=== PATIENT | female | born 1990 | race Caucasian/White ===

== ENCOUNTER → 2016-08-04 | Outpatient (CLI) | payer BC, OTHER ==
[~2016-08-04] MED LIST: ACET-1256 PO; ADAL20KI INJ; CHOL2000 PO; DICY10CA55 PO; ERGO1CAP41 PO; HYDR-5688 PO; NUVVR PV; ONDA4TAB4 PO; ONDA4TAB9 PO; SERT25TA PO; TRAM-10 PO; TRAZ50TA35 PO; ZNTT/150 PO
[2016-08-04 17:33] LABS: ALT/SGPT 24 U/L (12-78); BLOOD UREA NITROGEN 11 mg/dl (7-18); BUN/CREATININE RATIO 15.2 (10-20); CALCIUM 8.6 mg/dl (8.5-10.1); CARBON DIOXIDE 26 mmol/L (21-32); CHLORIDE 107 mmol/L (98-107); CREATININE 0.69 mg/dl (0.60-1.20); GLUCOSE 101 mg/dl (70-99); POTASSIUM 4.2 mmol/L (3.5-5.1); SODIUM 142 mmol/L (136-145)
[2016-08-04 17:44] LABS: ALB/GLOB RATIO 0.9 (0.9-2); ALKALINE PHOSPHATASE 62 U/L (45-117); AST/SGOT 15 U/L (15-37)
[2016-08-04 17:54] LABS: BASO % 0.4 %; BASO ABS # 0.04 K/uL (0-0.2); COMPLETE YES; EOS % 2.1 %; HEMATOCRIT 38.2 % (37-47); IG% 0.2 %; LYMPH % 37.7 %; LYMPH ABS # 3.45 K/uL (1.2-3.4); MEAN CELL VOLUME 87.8 fL (80-100); MEAN CORPUSCULAR HEMOGLOBIN 30.8 pg (25-34); MEAN CORPUSCULAR HGB CONC 35.1 g/dl (32-36); MEAN PLATELET VOLUME 10.4 fL (7.4-10.4); MONO % 6.8 %; NEUT % 52.8 %; PLATELET COUNT 287 K/uL (130-400); RED BLOOD COUNT 4.35 M/uL (4.2-5.4); WHITE BLOOD COUNT 9.15 K/uL (4.8-10.8)
== END | disposition home or self-care (01) ==
LOC: C.LABBC 15:20
PROVIDERS: ATTEND Internal Medicine
DX: K50.90 Crohn's disease, unspecified, without complications (principal); R53.83 Other fatigue; R63.5 Abnormal weight gain

== ENCOUNTER → 2016-08-04 | Outpatient (CLI) | payer BC, OTHER ==
--- NOTE | 2016-08-04 16:54 | EEG Procedure Note ---
EEG Procedure Note Date of Service Aug 04, 2016. Start / End Times Start Time: 2:30 PM End Time: 2:51 PM Referring Physician Glenn Andrews History This is a 25-year-old female who presents with staring spells. EEG for further evaluation of possible seizure etiology. Other than control, no other home medications reported. Home Medication List Scheduled Adalimumab (Humira), 40 MG INJ [id number] Cholecalciferol (Vitamin D3), 2,000 INTUNIT PO DAILY Scheduled PRN Ondansetron Tab (Zofran), 4 MG PO Q6H PRN for Nausea Tramadol (Ultram), 50 MG PO BID PRN for Pain Description This is a 21 electrode EEG with a single channel dedicated to limited EKG. The electrodes were placed in accordance with the International 10-20 system. At the start of the recording the patient was in an awake state. Background was well organized and composed of symmetric mixed alpha and beta frequencies. There was a symmetric well-formed moderate amplitude 10-11 Hz posterior dominant rhythm that was reactive to eye opening and closure. Hyperventilation with good effort produced no abnormalities. Intermittent photic stimulation at various frequencies produced no abnormalities. Sleep was indicated by vertex waves and symmetric sleep spindles. Interpretation This is a normal awake and asleep routine EEG. There was no electrographic seizures or epileptiform discharges. Clinical Correlation A normal EEG does not rule out epilepsy if there is a strong clinical suspicion.
== END | disposition home or self-care (01) ==
LOC: C.NEUR 14:05
PROVIDERS: ATTEND Internal Medicine
DX: R40.4 Transient alteration of awareness (principal)

== ENCOUNTER 2017-01-02 10:06 | Emergency (ER) | payer BC, OTHER ==
[~2017-01-02] VITALS: Ht 162.6 cm; Wt 72.8 kg
[~2017-01-02 10:06] MED LIST changes: -ACET-1256 PO; -DICY10CA55 PO; -ERGO1CAP41 PO; -HYDR-5688 PO; -NUVVR PV; -ONDA4TAB9 PO; -SERT25TA PO; -TRAZ50TA35 PO; -ZNTT/150 PO
[2017-01-02 10:08] VITALS: TEMP 36.7; Ht 162.6 cm; Wt 72.8 kg
[2017-01-02] MEDS ORDERED: MoRPHine SULFATE 4 MG/ML 1 ML CARP\\VIAL IV STA ×2 (10:38→11:52)
[2017-01-02] MEDS ORDERED: SODIUM CHLORIDE 0.9% 1000ML 1,000 ML IV STA (10:38)
[2017-01-02] MEDS ORDERED: ONDANSETRON INJ 2 MG/ML 2 ML VIAL IV STA (10:38)
[2017-01-02 10:58] LABS: URINE APPEARANCE CLEAR (CLEAR); URINE BILIRUBIN NEG (NEG); URINE COLOR YELLOW; URINE EPITHELIAL CELL AUTO >30 /lpf (0-5); URINE NITRITE NEG (NEG); URINE PH 7.5 (4.5-7.5); URINE SPECIFIC GRAVITY 1.006 (1.000-1.030); UROBILINOGEN NEG (NEG); ZZUR CULT IF INDIC CLEAN CATCH YES
[2017-01-02 11:01] LABS: MANUAL MICROSCOPIC REQUIRED? NO; REVIEW REQ? NO
[2017-01-02 11:12] LABS: BASO % 0.4 %; BASO ABS # 0.04 K/uL (0-0.2); COMPLETE YES; EOS % 1.6 %; HEMATOCRIT 41.9 % (37-47); IG% 0.3 %; LYMPH % 31.9 %; LYMPH ABS # 2.97 K/uL (1.2-3.4); MEAN CELL VOLUME 87.8 fL (80-100); MEAN CORPUSCULAR HEMOGLOBIN 29.8 pg (25-34); MEAN CORPUSCULAR HGB CONC 33.9 g/dl (32-36); MEAN PLATELET VOLUME 10.1 fL (7.4-10.4); NEUT % 61.8 %; PLATELET COUNT 215 K/uL (130-400); RED BLOOD COUNT 4.77 M/uL (4.2-5.4); WHITE BLOOD COUNT 9.31 K/uL (4.8-10.8)
--- NOTE | 2017-01-02 11:27 | EMERGENCY ROOM VISIT NOTE ---
History Report prepared by Trell: Sheri Busch Under the Supervision of: Dr. Zoya Marshall M.D. First contact with patient: 10:26 Chief Complaint: ABDOMINAL PAIN Stated Complaint: ABD. PAIN RT SIDE UNDER RIB CAGE, BP, NAUSEA, FEVE Nursing Triage Summary: pt c/o right abd pain for 1.5 weeks feels nauseated and pain radiates across abd . pt reports hx of chrohns. called pcp told to take nausea med did not help and has been having fevers intermittently History of Present Illness The patient is a 26 year old female who presents to the Emergency Room with complaints of worsening diffuse abdominal pain that started 1.5 weeks ago. The pain is mostly in her right upper quadrant but it occasionally radiates across her abdomen. The pain is worse after eating and after bowel movements. She is also experiencing intermittent fevers and nausea. Her highest recorded temperature was 100.4. The patient states that she is also experiencing bilateral back pain, right under her rib cage. She describes the back pain and abdominal pain as squeezing pains. The pain builds up "pressure" then releases and the patient's nausea subsides. She is also experiencing a headache and bilateral shoulder pain when she experiences the abdominal pain. She adds that she experienced one episode of diarrhea this morning followed by a formed stool. There was also a red tint to her stool this morning but there was no blood when she wiped. She also experienced "chalky" stool last week. The patient has a history of Crohn's disease and IBS. She states that her current symptoms do not feel like a Crohn's flare. The patient called her PCP today and they recommended coming into the ED. She adds that she called her PCP last week and they told her to double her dose of Bentyl. She states that she did that but it did not seem to help her symptoms.The patient is unsure of when her most recent abdominal CT scan was but she thinks it was within the last year. The patient has a colonoscopy scheduled for January 09, but she states that she cannot wait that long. The patient is on Humira and her most recent dose was 8 days ago. She states that her next dose will be this weekend. The patient denies any chance of . She has never had her gallbladder checked. Source of History: patient Onset: 1.5 weeks ago Position: abdomen (diffuse) Quality: other (squeezing) Timing: worsening Associated Symptoms: + fevers, + headache, + nausea, + back pain (bilateral) , + diarrhea Note: shoulder pain Review of Systems See HPI for pertinent positives & negatives. A total of 10 systems reviewed and were otherwise negative. Past Medical & Surgical Medical Problems: (1) CD (Crohn's disease) (2) IBS (irritable bowel syndrome) (3) TBI (traumatic brain injury) Surgical Problems: (1) History of tonsillectomy (2) [place] teeth extracted Family History Hypertension Social History Smoking Status: Never Smoker Alcohol Use: occasionally Marital Status: in relationship Housing Status: lives alone Occupation Status: employed Current/Historical Medications Scheduled Adalimumab (Humira), 40 MG INJ [id number] Ergocalciferol (Vitamin D 05062 Unit), 50,000 UNITS PO WK Etonogestrel/Ethinyl Estradiol (Nuvaring), 1 DOSE PV UD Scheduled PRN Dicyclomine Hcl (Bentyl), 1 DOSE PO UD PRN for GI Upset Ondansetron (Ondansetron HCl), 4 MG PO TID PRN for Nausea or Vomiting Tramadol (Ultram), 1 TABS PO Q6 PRN for Pain Trazodone Hcl (Trazodone), 50 MG PO HS PRN for Insomnia Allergies Coded Allergies: Hydromorphone (Verified Allergy, Unknown, rash, itching, tongue swelling, 01/02/17) Sulfa Antibiotics (Verified Allergy, Unknown, RASH, 01/02/17) Physical Exam Vital Signs Date Time Temp Pulse Resp B/P (MAP) Pulse Ox O2 Delivery O2 Flow Rate FiO2 01/02/17 13:03 73 18 134/76 99 Room Air 01/02/17 11:59 74 18 135/80 100 Room Air 01/02/17 10:33 138/75 01/02/17 10:08 36.7 81 18 145/98 100 Room Air Physical Exam Vital signs reviewed. General: Well-appearing female, in no significant distress. HEENT: No scleral icterus, PERRLA, neck supple. Atraumatic. Cardiovascular: Regular rate and rhythm, no extra sounds. Pulmonary: Clear to auscultation bilaterally, normal work of breathing. Abdomen: Soft, right upper quadrant tenderness, no rebound, no guarding, nondistended, positive bowel sounds. Musculoskeletal: Atraumatic, no peripheral edema. Neurologic: Patient awake alert and oriented x 3 Skin: Warm, dry, no rash Medical Decision & Procedures ER Provider Diagnostic Interpretation: US results as stated below per my review and radiologist interpretation: GALLBLADDER-ABD LIMITED FINDINGS: The imaged pancreas appears unremarkable with the distal body and tail obscured by bowel gas. Liver measures up to 15 cm and appears to be unremarkable. There is no shadowing cholelithiasis, normal wall thickening or pericholecystic fluid collection. There is minimal layering gallbladder sludge. Common bile duct is upper limits of normal at 6 mm. No obstructing stone or mass identified. There is mild pelvic caliectasis on the right without renal calculi. Right kidney measures up to 9.6 x 3.4 x 5.2 cm. IMPRESSION: 1. Minimal layering gallbladder sludge without sonographic evidence of cholelithiasis or acute cholecystitis. 2. Mild right-sided pelvicaliectasis may be physiologic or reflect developing obstructive uropathy. Correlate with urinalysis. 3. Common bile duct measures within the upper limits of normal at 6 mm without obstructing mass or stone identified. The above report was generated using voice recognition software. It may contain grammatical, syntax or spelling errors. Electronically signed by: Pavan Izaguirre M.D. 01/02/2017 11:35 AM Dictated Date/Time: 01/02/2017 11:32 AM Laboratory Results 01/02/17 11:00 Red Blood Count 4.77, Mean Corpuscular Volume 87.8, Mean Corpuscular Hemoglobin 29.8, Mean Corpuscular Hemoglobin Concent 33.9, Mean Platelet Volume 10.1, Neutrophils (%) (Auto) 61.8, Lymphocytes (%) (Auto) 31.9, Monocytes (%) (Auto) 4.0, Eosinophils (%) (Auto) 1.6, Basophils (%) (Auto) 0.4, Neutrophils # (Auto) 5.75, Lymphocytes # (Auto) 2.97, Monocytes # (Auto) 0.37, Eosinophils # (Auto) 0.15, Basophils # (Auto) 0.04 01/02/17 11:00 Test 01/02/17 10:35 01/02/17 11:00 Urine Color YELLOW Urine Appearance CLEAR (CLEAR) Urine pH 7.5 (4.5-7.5) Urine Specific [place] 1.006 (1.000-1.030) Urine Protein NEG (NEG) Urine Glucose (UA) NEG (NEG) Urine Ketones NEG (NEG) Urine Occult Blood NEG (NEG) Urine Nitrite NEG (NEG) Urine Bilirubin NEG (NEG) Urine Urobilinogen NEG (NEG) Urine Leukocyte Esterase MODERATE (NEG) Urine WBC (Auto) 5-10 /hpf (0-5) Urine RBC (Auto) 0-4 /hpf (0-4) Urine Hyaline Casts (Auto) 1-5 /lpf (0-5) Urine Epithelial Cells (Auto) >30 /lpf (0-5) Urine Bacteria (Auto) 1+ (NEG) Urine Test NEG (NEG) White Blood Count 9.31 K/uL (4.8-10.8) Red Blood Count 4.77 M/uL (4.2-5.4) Hemoglobin 14.2 g/dL (12.0-16.0) Hematocrit 41.9 % (37-47) Mean Corpuscular Volume 87.8 fL (80-100) Mean Corpuscular Hemoglobin 29.8 pg (25-34) Mean Corpuscular Hemoglobin Concent 33.9 g/dl (32-36) Platelet Count 215 K/uL (130-400) Mean Platelet Volume 10.1 fL (7.4-10.4) Neutrophils (%) (Auto) 61.8 % Lymphocytes (%) (Auto) 31.9 % Monocytes (%) (Auto) 4.0 % Eosinophils (%) (Auto) 1.6 % Basophils (%) (Auto) 0.4 % Neutrophils # (Auto) 5.75 K/uL (1.4-6.5) Lymphocytes # (Auto) 2.97 K/uL (1.2-3.4) Monocytes # (Auto) 0.37 K/uL (0.11-0.59) Eosinophils # (Auto) 0.15 K/uL (0-0.5) Basophils # (Auto) 0.04 K/uL (0-0.2) RDW Standard Deviation 40.9 fL (36.4-46.3) RDW Coefficient of Variation 12.7 % (11.5-14.5) Immature Granulocyte % (Auto) 0.3 % Immature Granulocyte # (Auto) 0.03 K/uL (0.00-0.02) Anion Gap 7.0 mmol/L (3-11) Est Creatinine Clear Calc Drug Dose 95.8 ml/min Estimated GFR () 106.6 Estimated GFR (Non- 91.9 BUN/Creatinine Ratio 10.3 (10-20) Calcium Level 9.3 mg/dl (8.5-10.1) Total Bilirubin 0.4 mg/dl (0.2-1) Direct Bilirubin < 0.1 mg/dl (0-0.2) Aspartate Amino Transf (AST/SGOT) 16 U/L (15-37) Alanine Aminotransferase (ALT/SGPT) 21 U/L (12-78) Alkaline Phosphatase 61 U/L (45-117) Total Protein 7.6 gm/dl (6.4-8.2) Albumin 3.6 gm/dl (3.4-5.0) Lipase 147 U/L (73-393) Laboratory results per my review. Medications Administered Medications (Trade) Dose Ordered Sig/Júnior Route Start Time Stop Time Status Last Admin Dose Admin Sodium Chloride 1,000 ml @ 999 mls/hr Q1H1M STAT IV 01/02/17 10:38 01/02/17 11:38 DC 01/02/17 10:49 999 MLS/HR Morphine Sulfate (MoRPHine SULFATE INJ) 4 mg NOW STAT IV 01/02/17 10:38 01/02/17 10:41 DC 01/02/17 10:50 4 MG Ondansetron HCl (Zofran Inj) 4 mg NOW STAT IV 01/02/17 10:38 01/02/17 10:41 DC 01/02/17 10:50 4 MG Morphine Sulfate (MoRPHine SULFATE INJ) 4 mg NOW STAT IV 01/02/17 11:52 01/02/17 11:54 DC 01/02/17 11:58 4 MG Acetaminophen/ Hydrocodone Bitart ([place] 7.5/325 Tab) 1 tab NOW STAT PO 01/02/17 12:53 01/02/17 12:54 DC 01/02/17 13:02 1 TAB ED Course 1033: Past medical records reviewed. The patient was evaluated in room B7. A complete history and physical examination was performed. 1038: Ordered Zofran Inj 4 mg IV, Morphine Sulfate 4 mg IV, Sodium Chloride 1000 ml @ 999 mls/hr IV. 1152: Ordered Morphine Sulfate 4 mg IV 1238: I reviewed the patient's case with Dr. Rpi TELLO. He is going to follow- up with the patient as an outpatient. He also said that the patient gets some anxiety with her ulcerative colitis and IBS. 1246: The patient's nurse informed me that the patient is beginning to experience pain again. 1253: Ordered Hydrocodone Bitart/Acetaminophen 1 tab PO 1315: Upon reevaluation, the patient appeared to have improvement of her symptoms. I discussed findings with her. She verbalized agreement of the treatment plan. She was discharged home. Medical Decision Differential diagnoses includes appendicitis, diverticulitis, PUD, biliary pathology, UTI, pancreatitis, obstruction, mesenteric ischemia, aortic pathology , infections, inflammatory bowel disease, renal colic, Crohn's flare. Medication Reconciliation: I attest that I have personally reviewed the patient' s current medication list. Blood Pressure Screening: Patient was found to have a slightly elevated blood pressure due to circumstances. I do not believe that the patient requires hypertension monitoring. This patient was evaluated and appeared to be in some discomfort. IV access was obtained and laboratory work was drawn. The patient was given IV morphine and Zofran for her discomfort. She was hydrated with normal saline solution. Ultrasound of right upper quadrant reveals sludge in the gallbladder with a 6 mm common bile duct. LFTs are normal. WBC count is normal. UA is normal. test is negative. Patient did require additional IV morphine and Zofran. She was discussed with Dr. Erwin, her hospital insurance clerk. He agrees that a CT scan of the abdomen and pelvis is not indicated at this time. He recommends outpatient follow-up. Contact with the GI office was made for the patient. She has a colonoscopy scheduled for 1 week from today. The patient was given a prescription for Ultram to be used as needed for pain. She was given a hydrocodone tablet prior to discharge. She was discharged care of her parents and will return to the ER for worsening of symptoms or any medical concerns. Consults Time Called: 1206 Consulting Physician: Dr. Rip TELLO Returned Call: [phone] I reviewed the patient's case with Dr. Rip TELLO. He is going to follow-up with the patient as an outpatient. He also said that the patient gets some anxiety with her ulcerative colitis and IBS. Impression Primary Impression: Gallbladder sludge Additional Impressions: IBS (irritable bowel syndrome) Crohn disease Scribe Attestation The scribe's documentation has been prepared under my direction and personally reviewed by me in its entirety. I confirm that the note above accurately reflects all work, treatment, procedures, and medical decision making performed by me. Departure Information Dispostion Home / Self-Care Prescriptions Tramadol (Ultram) 50 Mg Tab 1 TABS PO Q6 Y for Pain, #20 TAB Prov: Zoya Marshall M.D. 01/02/17 Referrals No Doctor, Assigned (PCP) Forms HOME CARE DOCUMENTATION FORM, IMPORTANT VISIT INFORMATION Patient Instructions My [facility] Additional Instructions Diagnosis: Gallbladder sludge, Crohns disease, Ulcerative colitis Maintain a bland diet Ultram 50 mg every 6 hours as needed for pain. Drink plenty of clear fluids. Call Dr Erwin's office today for follow up MARK. Return to the ED for worsening of symptoms or any medical concerns. Problem Qualifiers Additional Impressions: IBS (irritable bowel syndrome) Irritable bowel syndrome type: unspecified Qualified Codes: K58.9 - Irritable bowel syndrome without diarrhea Crohn disease Gastrointestinal tract location: unspecified location Digestive disease complication type: unspecified complication Qualified Codes: K50.919 - Crohn' s disease, unspecified, with unspecified complications
[2017-01-02 11:29] LABS: ALT/SGPT 21 U/L (12-78); BLOOD UREA NITROGEN 9 mg/dl (7-18); BUN/CREATININE RATIO 10.3 (10-20); CALCIUM 9.3 mg/dl (8.5-10.1); CARBON DIOXIDE 24 mmol/L (21-32); CHLORIDE 108 mmol/L (98-107); CREATININE 0.87 mg/dl (0.60-1.20); GLUCOSE 80 mg/dl (70-99); SODIUM 139 mmol/L (136-145)
[2017-01-02 11:32] LABS: ALKALINE PHOSPHATASE 61 U/L (45-117); AST/SGOT 16 U/L (15-37)
--- NOTE | 2017-01-02 11:37 | DIAGNOSTIC IMAGING REPORT ---
GALLBLADDER-ABD LIMITED HISTORY:26 yearsFemaleCrohns Dx, RUQ pain COMPARISON: CT abdomen and pelvis 07/26/2014 TECHNIQUE: Multiple real-time sonographic images of the abdominal right upper quadrant were obtained assessing grayscale appearance and color flow FINDINGS: The imaged pancreas appears unremarkable with the distal body and tail obscured by bowel gas. Liver measures up to 15 cm and appears to be unremarkable. There is no shadowing cholelithiasis, normal wall thickening or pericholecystic fluid collection. There is minimal layering gallbladder sludge. Common bile duct is upper limits of normal at 6 mm. No obstructing stone or mass identified. There is mild pelvic caliectasis on the right without renal calculi. Right kidney measures up to 9.6 x 3.4 x 5.2 cm. IMPRESSION: 1. Minimal layering gallbladder sludge without sonographic evidence of cholelithiasis or acute cholecystitis. 2. Mild right-sided pelvicaliectasis may be physiologic or reflect developing obstructive uropathy. Correlate with urinalysis. 3. Common bile duct measures within the upper limits of normal at 6 mm without obstructing mass or stone identified. The above report was generated using voice recognition software. It may contain grammatical, syntax or spelling errors. Electronically signed by: Pavan Izaguirre M.D. 01/02/2017 11:35 AM Dictated Date/Time: 01/02/2017 11:32 AM
[2017-01-02] MEDS ORDERED: ONDA4TAB9 PO (11:42)
[2017-01-02] MEDS ORDERED: NUVVR PV (11:42)
[2017-01-02] MEDS ORDERED: DICY10CA55 PO (11:44)
[2017-01-02] MEDS ORDERED: ERGO1CAP41 PO (11:45)
[2017-01-02] MEDS ORDERED: TRAZ50TA35 PO (11:55)
[2017-01-02] MEDS ORDERED: TRAM-10 PO (12:52)
[2017-01-02] MEDS ORDERED: HYDROCODONE/ACETAMINOPHEN 7.5/325MG TAB PO STA (12:53)
[2017-01-02 13:03] VITALS: BP 134/76; PULSE 73; O2SAT 99
[2017-01-16] MEDS ORDERED: ZNTT/150 PO (09:06)
[2017-01-24] MEDS ORDERED: ACET-1256 PO (12:13)
[2017-02-01] MEDS ORDERED: TRAM-10 PO (14:56)
[2017-02-01] MEDS ORDERED: SERT25TA PO (14:56)
[2017-02-07] MEDS ORDERED: HYDR-5688 PO (06:23)
== END 2017-01-02 13:44 | disposition home or self-care (01) ==
LOC: C.EDB 10:07
DX: K58.9 Irritable bowel syndrome, unspecified (principal); K50.919 Crohn's disease, unspecified, with unspecified complications; Z82.49 Family history of ischemic heart disease and other diseases of the circulatory system

== ENCOUNTER 2017-01-03 17:21 | Inpatient (IN) | payer BC ==
[~2017-01-03] VITALS: Ht 162.6 cm; Wt 73.0 kg
[~2017-01-03 17:21] MED LIST changes: -CHOL2000 PO; +DICY10CA55 PO; +ERGO1CAP41 PO; +NUVVR PV; -ONDA4TAB4 PO; +ONDA4TAB9 PO; +TRAZ50TA35 PO
[2017-01-03] MEDS ORDERED: ONDANSETRON INJ 2 MG/ML 2 ML VIAL IV STA (17:42)
[2017-01-03] MEDS ORDERED: PROMETHAZINE HCL INJ 25 MG/ML 1 ML VIAL IV STA (17:42)
[2017-01-03] MEDS ORDERED: SODIUM CHLORIDE 0.9% 1000ML 1,000 ML IV STA ×2 (17:42)
[2017-01-03] MEDS ORDERED: MoRPHine SULFATE 10 MG/ML CARP/VIAL IV PRN (17:45)
--- NOTE | 2017-01-03 18:04 | EMERGENCY ROOM VISIT NOTE ---
History Report prepared by Trell: Fabio Yepez Under the Supervision of: Dr. Pan Hoang M.D. First contact with patient: 17:33 Chief Complaint: NEURO SYMPTOMS Stated Complaint: RIGHT SIDE NUMBNESS, NEURO SYMPTOMS, VOMITTING History of Present Illness The patient is a 26 year old female who presents to the Emergency Room with complaints of constant right arm numbness beginning prior to arrival. The patient states that she was here yesterday. Her records show that she had a normal WBC, a benign chemistry profile, negative lipase, negative test , and no evidence for a UTI. She had an ultrasound of the gallbladder showing sludge. She was discharged on Ultrum for pain. The patient reports that nothing has gotten better, and her vomiting has increased today. She notes that around 1.5 hours ago she was calling her GI doctor to tell them that her nausea has gotten worse. The patient states that during the call, her arm and fingers became numb and heavy. She reports that her arms are still heavy. The patient notes that this morning she started to get a headache at the base of her neck that spread around her head. She states that she has had intermittent fevers and abdominal pain that radiates from the right lower quadrant that spreads to her back. The patient reports that on her way here, she had a sharp pain that felt like she needed to move her bowels, but she cannot. She denies having diarrhea and her last bowel movement was yesterday morning. The patient states that she has a HIDA scan scheduled in 6 days with her GI doctor. She reports that she has a history of Crohn's disease and is on Humira. Source of History: patient Onset: prior to arrival Position: arm (right) Quality: numbness Timing: constant Associated Symptoms: + fevers, + headache, + nausea, + abdominal pain, + back pain, No diarrhea Review of Systems See HPI for pertinent positives & negatives. A total of 10 systems reviewed and were otherwise negative. Past Medical & Surgical Medical Problems: (1) CD (Crohn's disease) (2) IBS (irritable bowel syndrome) (3) TBI (traumatic brain injury) Surgical Problems: (1) History of tonsillectomy (2) [place] teeth extracted Family History Hypertension Social History Smoking Status: Never Smoker Alcohol Use: occasionally Marital Status: in relationship Housing Status: lives alone Occupation Status: employed Current/Historical Medications Scheduled Adalimumab (Humira), 40 MG INJ [id number] Ergocalciferol (Vitamin D 21230 Unit), 50,000 UNITS PO WK Etonogestrel/Ethinyl Estradiol (Nuvaring), 1 DOSE PV UD Scheduled PRN Dicyclomine Hcl (Bentyl), 1 DOSE PO UD PRN for GI Upset Ondansetron (Ondansetron HCl), 4 MG PO TID PRN for Nausea or Vomiting Tramadol (Ultram), 1 TABS PO Q6 PRN for Pain Trazodone Hcl (Trazodone), 50 MG PO HS PRN for Insomnia Allergies Coded Allergies: Hydromorphone (Verified Allergy, Unknown, rash, itching, tongue swelling, 01/03/17) Sulfa Antibiotics (Verified Allergy, Unknown, RASH, 01/03/17) Physical Exam Vital Signs Date Time Temp Pulse Resp B/P (MAP) Pulse Ox O2 Delivery O2 Flow Rate FiO2 01/03/17 18:55 79 20 132/84 100 Room Air 01/03/17 17:27 37.1 138 22 147/91 100 Room Air Physical Exam GENERAL: Patient is in moderate distress, tearful, dry heaving HEENT: No acute trauma, normocephalic atraumatic, mucous membranes moist, no nasal congestion, no scleral icterus. NECK: No stridor, no adenopathy, no meningismus, trachea is midline. LUNGS: Clear to auscultation bilaterally, no wheeze, no rhonchi, breath sounds equal. HEART: Tachycardic rate and regular rhythm, no murmur. ABDOMEN: Soft, moderately diffuse tenderness, bowel sounds positive, no hernias , no peritonitis. EXTREMITIES: No cyanosis or edema, full range of motion of all the joints without pain or difficulty, no signs for acute trauma. NEUROLOGIC: Oriented x 3, no acute motor or sensory deficits, no focal weakness. No cerebellar dysfunction or pronator drift, no slurred speech or facial droop. SKIN: No rash, no jaundice, no diaphoresis. Medical Decision & Procedures ER Provider Diagnostic Interpretation: CT results as stated below per my review and radiologist interpretation: CT HEAD WITHOUT CONTRAST (CT) CLINICAL HISTORY: Severe headache and right-sided numbness COMPARISON STUDY: 03/18/2016 TECHNIQUE: Axial CT of the brain is performed from the vertex to the skull base. IV contrast was not administered for this examination. CT DOSE: FINDINGS: No intra or extra-axial mass lesions are visualized. There is no CT evidence of acute cortical infarction. There is no evidence of midline shift. There is no acute hemorrhage. No calvarial fractures are visualized. There is no evidence of pathologic ventricular dilatation. There is minimal sphenoid sinus mucosal thickening versus partial volume averaging artifact. IMPRESSION: No acute intracranial findings Electronically signed by: Narendra Peacock M.D. 01/03/2017 7:28 PM Dictated Date/Time: 01/03/2017 7:[address] SCAN OF THE ABDOMEN AND PELVIS WITHOUT CONTRAST CLINICAL HISTORY: Right-sided abdominal pain. History of Crohn's. COMPARISON STUDY: 07/26/2014 TECHNIQUE: CT scan of the abdomen and pelvis was performed from the lung bases to the proximal femurs. Images are reviewed in the axial, sagittal, and coronal planes. IV contrast was not administered for this examination. CT DOSE: 1248.02 mGy.cm FINDINGS: Lower chest: There are minimal dependent atelectatic changes Liver: The unenhanced liver is normal in size, contour, and attenuation. There is no intrahepatic biliary ductal dilatation. Gallbladder: Unremarkable. Spleen: Normal in size and attenuation. Pancreas: Unremarkable. Adrenal glands: Unremarkable. Kidneys: No renal, ureteral, or bladder calculi are visualized. Bowel: There are no transition zones indicate bowel obstruction. There is no acute diverticulitis. There is no acute appendicitis. There is a small amount of formed fecal material within the distal ileum. There is no pathologic distal ileal dilatation. There is scattered stool present throughout the colon. Peritoneum: There is no intraperitoneal free air or abdominal ascites. Vasculature: The abdominal aorta is normal in course and caliber. Adenopathy: Para-aortic lymph nodes remain the upper limits of normal in size. Pelvic viscera: The bladder, and pelvic viscera are unremarkable. Skeletal structures: No destructive osseous lesions are seen. IMPRESSION: 1. No acute intra-abdominal or pelvic findings 2. No evidence of bowel obstruction. No evidence of free air 3. No renal, ureteral, or bladder calculi identified 4. No evidence of acute appendicitis. No evidence of acute diverticulitis. Electronically signed by: Narendra Peacock M.D. 01/03/2017 7:33 PM Dictated Date/Time: 01/03/2017 7:28 PM Laboratory Results 01/03/17 18:30 Red Blood Count 4.31, Mean Corpuscular Volume 87.0, Mean Corpuscular Hemoglobin 30.9, Mean Corpuscular Hemoglobin Concent 35.5, Mean Platelet Volume 9.6, Neutrophils (%) (Auto) 64.7, Lymphocytes (%) (Auto) 27.6, Monocytes (%) (Auto) 6.1, Eosinophils (%) (Auto) 1.1, Basophils (%) (Auto) 0.3, Neutrophils # (Auto) 7.03, Lymphocytes # (Auto) 2.99, Monocytes # (Auto) 0.66, Eosinophils # (Auto) 0.12, Basophils # (Auto) 0.03 01/03/17 18:30 Test 01/03/17 18:30 01/03/17 19:34 White Blood Count 10.85 K/uL (4.8-10.8) Red Blood Count 4.31 M/uL (4.2-5.4) Hemoglobin 13.3 g/dL (12.0-16.0) Hematocrit 37.5 % (37-47) Mean Corpuscular Volume 87.0 fL (80-100) Mean Corpuscular Hemoglobin 30.9 pg (25-34) Mean Corpuscular Hemoglobin Concent 35.5 g/dl (32-36) Platelet Count 260 K/uL (130-400) Mean Platelet Volume 9.6 fL (7.4-10.4) Neutrophils (%) (Auto) 64.7 % Lymphocytes (%) (Auto) 27.6 % Monocytes (%) (Auto) 6.1 % Eosinophils (%) (Auto) 1.1 % Basophils (%) (Auto) 0.3 % Neutrophils # (Auto) 7.03 K/uL (1.4-6.5) Lymphocytes # (Auto) 2.99 K/uL (1.2-3.4) Monocytes # (Auto) 0.66 K/uL (0.11-0.59) Eosinophils # (Auto) 0.12 K/uL (0-0.5) Basophils # (Auto) 0.03 K/uL (0-0.2) RDW Standard Deviation 40.2 fL (36.4-46.3) RDW Coefficient of Variation 12.5 % (11.5-14.5) Immature Granulocyte % (Auto) 0.2 % Immature Granulocyte # (Auto) 0.02 K/uL (0.00-0.02) Anion Gap 6.0 mmol/L (3-11) Est Creatinine Clear Calc Drug Dose 85.2 ml/min Estimated GFR () 92.3 Estimated GFR (Non- 79.6 BUN/Creatinine Ratio 14.1 (10-20) Calcium Level 8.8 mg/dl (8.5-10.1) Magnesium Level 1.8 mg/dl (1.8-2.4) Total Bilirubin 0.4 mg/dl (0.2-1) Aspartate Amino Transf (AST/SGOT) 14 U/L (15-37) Alanine Aminotransferase (ALT/SGPT) 18 U/L (12-78) Alkaline Phosphatase 55 U/L (45-117) Total Protein 7.0 gm/dl (6.4-8.2) Albumin 3.3 gm/dl (3.4-5.0) Globulin 3.7 gm/dl (2.5-4.0) Albumin/Globulin Ratio 0.9 (0.9-2) Lipase 129 U/L (73-393) Human Chorionic Gonadotropin, Qual NEG (NEG) Laboratory results reviewed by me. Medications Administered Medications (Trade) Dose Ordered Sig/Júnior Route Start Time Stop Time Status Last Admin Dose Admin Ondansetron HCl (Zofran Inj) 4 mg NOW STAT IV 01/03/17 17:42 01/03/17 17:45 DC 01/03/17 18:45 4 MG Sodium Chloride 1,000 ml @ 200 mls/hr Q5H STAT IV 01/03/17 17:42 01/03/17 22:41 01/03/17 18:47 200 MLS/HR Sodium Chloride 1,000 ml @ 999 mls/hr Q1H1M STAT IV 01/03/17 17:42 01/03/17 18:42 DC 01/03/17 18:46 999 MLS/HR Morphine Sulfate (MoRPHine SULFATE INJ) 2 mg STK-MED ONCE .ROUTE 01/03/17 18:29 01/03/17 18:30 DC 01/03/17 18:46 2 MG Morphine Sulfate (MoRPHine SULFATE INJ) 4 mg STK-MED ONCE .ROUTE 01/03/17 18:29 01/03/17 18:30 DC 01/03/17 18:47 4 MG Promethazine HCl 12.5 mg/Sodium Chloride 50.5 ml @ 202 mls/hr NOW ONCE IV 01/03/17 18:45 01/03/17 18:59 DC 01/03/17 18:45 202 MLS/HR ED Course 1733: The patient was evaluated in room C02A. A complete history and physical exam was performed. 174: Ordered Sodium Chloride 1000 ml @ 999 mls/hr IV, Sodium Chloride 1000 ml @ 200 mls/hr IV, Zofran Inj 4 mg IV 1828: Ordered Morphine Sulfate 4 mg .ROUTE, Morphine Sulfate 2 mg .ROUTE 1845: Ordered Promethazine HCl 12.5 mg/Sodium Chloride 50.5 ml @ 202 mls/hr IV 1941: Upon reexamination the patient is resting. I discussed results and treatment plan with the patient. She verbalizes agreement and understanding. 1945: I discussed the patient's case with Dr. Gooden [facility] Hospitalist. The patient will be evaluated for further treatment. Medical Decision Differential diagnosis includes: bowel obstruction, biliary colic, cholecystitis , dehydration, hyperventilation, stroke, failed outpatient therapy, pancreatitis , Crohn's flare There is a very mild leukocytosis, this could be consistent with infection or just her pain and vomiting. No anemia. No significant electrolyte abnormality , kidney failure, hepatitis or pancreatitis. testing is negative. Urinalysis result is pending. Brain CT shows no acute bleed or mass effect. Abdominal CT shows no bowel obstruction or acute surgical process. The patient complained of numbness and tingling in her extremities especially on the right, I felt this was likely consistent with some hyperventilation. She had no focal neurologic deficits on exam. The patient received IV saline, IV Phenergan, IV Zofran and IV morphine. She feels markedly improved, she remains neurologically intact. The patient presents with failed outpatient treatment. Her presentation could be consistent with a flare of her Crohn's, or could be biliary colic. Since she is not doing well as an outpatient, I do think a hospital stay is warranted. I did speak to the patient and case management. The on-call hospitalist was consulted. Further workup as an inpatient is required. Consults Time Called: 1937 Consulting Physician: Dr. Gooden, [facility] Hospitalist Returned Call: 1946 I discussed the patient's case with Dr. Gooden, [facility] Hospitalist. The patient will be evaluated for further treatment. Impression Primary Impression: Vomiting Additional Impressions: Diffuse abdominal pain Dehydration Failure of outpatient treatment Scribe Attestation The scribe's documentation has been prepared under my direction and personally reviewed by me in its entirety. I confirm that the note above accurately reflects all work, treatment, procedures, and medical decision making performed by me. Departure Information Dispostion Being Evaluated By Hospitalist Referrals No Doctor, Assigned (PCP) Patient Instructions [facility] Problem Qualifiers
[2017-01-03] MEDS ORDERED: MoRPHine SULFATE 2 MG/ML CARP ONE (18:29)
[2017-01-03] MEDS ORDERED: MoRPHine SULFATE 4 MG/ML 1 ML CARP\\VIAL ONE (18:29)
[2017-01-03] MEDS ORDERED: PROMETHAZINE HCL INJ 12.5 MG in SODIUM CHLORIDE 0.9% 50ML 50 ML IV ONE (18:45)
[2017-01-03 18:49] LABS: BASO % 0.3 %; BASO ABS # 0.03 K/uL (0-0.2); COMPLETE YES; EOS % 1.1 %; HEMATOCRIT 37.5 % (37-47); IG% 0.2 %; LYMPH % 27.6 %; LYMPH ABS # 2.99 K/uL (1.2-3.4); MEAN CORPUSCULAR HEMOGLOBIN 30.9 pg (25-34); MEAN CORPUSCULAR HGB CONC 35.5 g/dl (32-36); MEAN PLATELET VOLUME 9.6 fL (7.4-10.4); MONO % 6.1 %; NEUT % 64.7 %; PLATELET COUNT 260 K/uL (130-400); RED BLOOD COUNT 4.31 M/uL (4.2-5.4); WHITE BLOOD COUNT 10.85 K/uL (4.8-10.8)
[2017-01-03 19:07] LABS: BUN/CREATININE RATIO 14.1 (10-20); CALCIUM 8.8 mg/dl (8.5-10.1); CREATININE 0.98 mg/dl (0.60-1.20); MAGNESIUM 1.8 mg/dl (1.8-2.4); POTASSIUM 3.5 mmol/L (3.5-5.1)
[2017-01-03 19:10] LABS: ALB/GLOB RATIO 0.9 (0.9-2)
[2017-01-03 19:14] LABS: PREG INTERNAL NEGATIVE QC NEG CLEAR BACKGROUND; PREG INTERNAL POSITIVE QC POS CONTROL LINE
--- NOTE | 2017-01-03 19:29 | DIAGNOSTIC IMAGING REPORT ---
CT HEAD WITHOUT CONTRAST (CT) CLINICAL HISTORY: Severe headache and right-sided numbness COMPARISON STUDY: 03/18/2016 TECHNIQUE: Axial CT of the brain is performed from the vertex to the skull base. IV contrast was not administered for this examination. CT DOSE: FINDINGS: No intra or extra-axial mass lesions are visualized. There is no CT evidence of acute cortical infarction. There is no evidence of midline shift. There is no acute hemorrhage. No calvarial fractures are visualized. There is no evidence of pathologic ventricular dilatation. There is minimal sphenoid sinus mucosal thickening versus partial volume averaging artifact. IMPRESSION: No acute intracranial findings Electronically signed by: Narendra Peacock M.D. 01/03/2017 7:28 PM Dictated Date/Time: 01/03/2017 7:27 PM
--- NOTE | 2017-01-03 19:35 | DIAGNOSTIC IMAGING REPORT ---
CT SCAN OF THE ABDOMEN AND PELVIS WITHOUT CONTRAST CLINICAL HISTORY: Right-sided abdominal pain. History of Crohn's. COMPARISON STUDY: 07/26/2014 TECHNIQUE: CT scan of the abdomen and pelvis was performed from the lung bases to the proximal femurs. Images are reviewed in the axial, sagittal, and coronal planes. IV contrast was not administered for this examination. CT DOSE: 1248.02 mGy.cm FINDINGS: Lower chest: There are minimal dependent atelectatic changes Liver: The unenhanced liver is normal in size, contour, and attenuation. There is no intrahepatic biliary ductal dilatation. Gallbladder: Unremarkable. Spleen: Normal in size and attenuation. Pancreas: Unremarkable. Adrenal glands: Unremarkable. Kidneys: No renal, ureteral, or bladder calculi are visualized. Bowel: There are no transition zones indicate bowel obstruction. There is no acute diverticulitis. There is no acute appendicitis. There is a small amount of formed fecal material within the distal ileum. There is no pathologic distal ileal dilatation. There is scattered stool present throughout the colon. Peritoneum: There is no intraperitoneal free air or abdominal ascites. Vasculature: The abdominal aorta is normal in course and caliber. Adenopathy: Para-aortic lymph nodes remain the upper limits of normal in size. Pelvic viscera: The bladder, and pelvic viscera are unremarkable. Skeletal structures: No destructive osseous lesions are seen. IMPRESSION: 1. No acute intra-abdominal or pelvic findings 2. No evidence of bowel obstruction. No evidence of free air 3. No renal, ureteral, or bladder calculi identified 4. No evidence of acute appendicitis. No evidence of acute diverticulitis. Electronically signed by: Narendra Peacock M.D. 01/03/2017 7:33 PM Dictated Date/Time: 01/03/2017 7:28 PM
[2017-01-03 20:16] LABS: URINE APPEARANCE CLOUDY (CLEAR); URINE BILIRUBIN NEG (NEG); URINE COLOR YELLOW; URINE EPITHELIAL CELL AUTO >30 /lpf (0-5); URINE NITRITE NEG (NEG); URINE PH 5.5 (4.5-7.5); URINE SPECIFIC GRAVITY 1.016 (1.000-1.030); UROBILINOGEN NEG (NEG); ZZUR CULT IF INDIC CLEAN CATCH YES
[2017-01-03 20:20] LABS: MANUAL MICROSCOPIC REQUIRED? NO; REVIEW REQ? YES
[2017-01-03] MEDS ORDERED: POLYETHYLENE (MIRALAX) 17 GM PACK PO PRN (20:30)
[2017-01-03] MEDS ORDERED: ALUMINUM/MAGNESIUM/SIMETH (MAALOX MAX) 30 ML UDC PO PRN (20:30)
[2017-01-03] MEDS ORDERED: MAGNESIUM HYDROXIDE SUSP 30 ML UDC PO PRN (20:30)
[2017-01-03] MEDS ORDERED: ZOLPIDEM TARTRATE 5 MG TAB PO PRN (20:30)
[2017-01-03 20:57] VITALS: BP_SYST 119; BP_SYST 132; BP_DIAS 68; BP_DIAS 84; PULSE 75; PULSE 79; TEMP 37.1; TEMP 37.2; Ht 162.6 cm; Wt 73.0 kg
[2017-01-03] MEDS: ONDANSETRON INJ 2 MG/ML 2 ML VIAL IV PRN (21:18)
--- NOTE | 2017-01-03 21:56 | History and Physical ---
History & Physical Date & Time of Service: Jan 03, 2017 at 21:30 Chief Complaint: Abdominal Pain, Crohns Colitis Primary Care Physician: No Doctor, Assigned History of Present Illness Source: patient 26 y/o F Hx Crohn's disease diagnosed 2101 - controlled with Humira. She has recently and difficulty with abdominal pain, nausea and vomiting. Her pain is most pronounced in her RUQ so that she was evaluated for gallbladder disease. An ultrasound revealed sludge only without evidence of cholecystitis. She was scheduled for a HIDA scan in one week. She had called her MD earlier in the day to c/o worsening pain and an inability to tolerate adequate PO intake. She was instructed to attend the hospital for symptomatic management and an expedited HIDA scan. A CT abdomen was obtained in the ER. No acute abnormalities are noted. Imaging was not consistent with an acute Crohn's flare. Past Medical/Surgical History Medical Problems: (1) CD (Crohn's disease) Status: Chronic (2) IBS (irritable bowel syndrome) Status: Chronic (3) TBI (traumatic brain injury) Status: Resolved Surgical Problems: (1) History of tonsillectomy Status: Resolved (2) [place] teeth extracted Status: Resolved Family History Hypertension Social History Smoking Status: Never Smoker Marital Status: in relationship Housing status: lives with family Occupational Status: employed Multi-Drug Resistant Organisms History of MDRO: No Allergies Coded Allergies: Hydromorphone (Verified Allergy, Unknown, rash, itching, tongue swelling, 01/03/17) Sulfa Antibiotics (Verified Allergy, Unknown, RASH, 01/03/17) Home Medications Scheduled Adalimumab (Humira), 40 MG INJ [id number] Ergocalciferol (Vitamin D 13832 Unit), 50,000 UNITS PO WK Etonogestrel/Ethinyl Estradiol (Nuvaring), 1 DOSE PV UD Scheduled PRN Dicyclomine Hcl (Bentyl), 1 DOSE PO UD PRN for GI Upset Ondansetron (Ondansetron HCl), 4 MG PO TID PRN for Nausea or Vomiting Tramadol (Ultram), 1 TABS PO Q6 PRN for Pain Trazodone Hcl (Trazodone), 50 MG PO HS PRN for Insomnia Review of Systems Constitutional: + fever (May have had a fever a few days ago), No chills, No sweats Eyes: No worsening of vision, No eye pain ENT: No hearing loss, No nasal symptoms Respiratory: No cough, No sputum Cardiovascular: No chest pain, No orthopnea, No PND Abdomen: + pain, + nausea, + vomiting Musculoskeletal: + joint pain (chronic) Genitourinary - Female: No dysuria, No urinary frequency, No urinary urgency Neurologic: No memory loss, No paralysis, No weakness Psychiatric: No depression symptoms Endocrine: No fatigue Hematologic / Lymphatic: No abnormal bleeding/bruising Integumentary: No rash Allergic / Immunologic: No environmental allergies Physical Exam Vital Signs Date Time Temp Pulse Resp B/P (MAP) Pulse Ox O2 Delivery O2 Flow Rate FiO2 01/03/17 20:57 37.1 79 20 132/84 01/03/17 18:55 79 20 132/84 100 Room Air 01/03/17 17:27 37.1 138 22 147/91 100 Room Air General Appearance: WD/WN, no apparent distress Head: normocephalic Eyes: normal inspection, PERRL, EOMI ENT: normal ENT inspection, pharynx normal Neck: supple, no adenopathy, thyroid normal, no JVD Respiratory/Chest: chest non-tender, lungs clear, normal breath sounds Cardiovascular: regular rate, rhythm, no edema, no gallop, no JVD, no murmur, normal peripheral pulses Abdomen/GI: normal bowel sounds, soft, + pertinent finding (Mild diffuse tenderness - most pronounce in RUQ) Back: normal inspection, no CVA tenderness, no muscle spasm, normal range of motion Extremities/Musculoskelatal: normal inspection, no calf tenderness, normal capillary refill, no pedal edema, normal range of motion Neurologic/Psych: litigation attorney associate II-XII nml as tested, no motor/sensory deficits, alert, normal mood/affect, normal reflexes, oriented x 3 Skin: normal color, warm/dry, no rash Diagnostics Laboratory Results Results Past 24 Hours Test 01/03/17 18:30 01/03/17 19:34 Range/Units White Blood Count 10.85 4.8-10.8 K/uL Red Blood Count 4.31 4.2-5.4 M/uL Hemoglobin 13.3 12.0-16.0 g/dL Hematocrit 37.5 37-47 % Mean Corpuscular Volume 87.0 80-100 fL Mean Corpuscular Hemoglobin 30.9 25-34 pg Mean Corpuscular Hemoglobin Concent 35.5 32-36 g/dl Platelet Count 260 130-400 K/uL Mean Platelet Volume 9.6 7.4-10.4 fL Neutrophils (%) (Auto) 64.7 % Lymphocytes (%) (Auto) 27.6 % Monocytes (%) (Auto) 6.1 % Eosinophils (%) (Auto) 1.1 % Basophils (%) (Auto) 0.3 % Neutrophils # (Auto) 7.03 1.4-6.5 K/uL Lymphocytes # (Auto) 2.99 1.2-3.4 K/uL Monocytes # (Auto) 0.66 0.11-0.59 K/uL Eosinophils # (Auto) 0.12 0-0.5 K/uL Basophils # (Auto) 0.03 0-0.2 K/uL RDW Standard Deviation 40.2 36.4-46.3 fL RDW Coefficient of Variation 12.5 11.5-14.5 % Immature Granulocyte % (Auto) 0.2 % Immature Granulocyte # (Auto) 0.02 0.00-0.02 K/uL Sodium Level 138 136-145 mmol/L Potassium Level 3.5 3.5-5.1 mmol/L Chloride Level 106 98-107 mmol/L Carbon Dioxide Level 26 21-32 mmol/L Anion Gap 6.0 3-11 mmol/L Blood Urea Nitrogen 14 7-18 mg/dl Creatinine 0.98 0.60-1.20 mg/dl Est Creatinine Clear Calc Drug Dose 85.2 ml/min Estimated GFR () 92.3 Estimated GFR (Non- 79.6 BUN/Creatinine Ratio 14.1 10-20 Random Glucose 86 70-99 mg/dl Calcium Level 8.8 8.5-10.1 mg/dl Magnesium Level 1.8 1.8-2.4 mg/dl Total Bilirubin 0.4 0.2-1 mg/dl Aspartate Amino Transf (AST/SGOT) 14 15-37 U/L Alanine Aminotransferase (ALT/SGPT) 18 12-78 U/L Alkaline Phosphatase 55 45-117 U/L Total Protein 7.0 6.4-8.2 gm/dl Albumin 3.3 3.4-5.0 gm/dl Globulin 3.7 2.5-4.0 gm/dl Albumin/Globulin Ratio 0.9 0.9-2 Lipase 129 73-393 U/L Human Chorionic Gonadotropin, Qual NEG NEG Urine Color YELLOW Urine Appearance CLOUDY CLEAR Urine pH 5.5 4.5-7.5 Urine Specific [place] 1.016 1.000-1.030 Urine Protein NEG NEG Urine Glucose (UA) NEG NEG Urine Ketones NEG NEG Urine Occult Blood NEG NEG Urine Nitrite NEG NEG Urine Bilirubin NEG NEG Urine Urobilinogen NEG NEG Urine Leukocyte Esterase LARGE NEG Urine WBC (Auto) >30 0-5 /hpf Urine RBC (Auto) 0-4 0-4 /hpf Urine Hyaline Casts (Auto) 1-5 0-5 /lpf Urine Epithelial Cells (Auto) >30 0-5 /lpf Urine Bacteria (Auto) 2+ NEG Urine Pathogenic Casts 0 /lpf Diagnostic Radiology CT abdomen 1. No acute intra-abdominal or pelvic findings 2. No evidence of bowel obstruction. No evidence of free air 3. No renal, ureteral, or bladder calculi identified 4. No evidence of acute appendicitis. No evidence of acute diverticulitis. US gallbladder 1. Minimal layering gallbladder sludge without sonographic evidence of cholelithiasis or acute cholecystitis. 2. Mild right-sided pelvic aliectasis may be physiologic or reflect developing obstructive uropathy. Correlate with urinalysis. 3. Common bile duct measures within the upper limits of normal at 6 mm without obstructing mass or stone identified. Impression Assessment and Plan 26 y/o F Hx Crohn's disease diagnosed 2101 - controlled with Humira. She has recently and difficulty with abdominal pain, nausea and vomiting. Her pain is most pronounced in her RUQ so that she was evaluated for gallbladder disease. An ultrasound revealed sludge only without evidence of cholecystitis. She was scheduled for a HIDA scan in one week. She had called her MD earlier in the day to c/o worsening pain and an inability to tolerate adequate PO intake. She was instructed to attend the hospital for symptomatic management and an expedited HIDA scan. A CT abdomen was obtained in the ER. No acute abnormalities are noted. Imaging was not consistent with an acute Crohn's flare. Pt is admitted for symptom management, GI evaluation, HIDA scan and possibly a colonoscopy as this too was scheduled for the coming week. She will be placed on IVF and clears, provided with analgesics and antiemetics as needed - we will defer to GI for a decision on colonoscopy. She can resume Humira on DC. Full code , SCDs Total time for this admit including review of labs, meds, EKG - discussion with pt and ER attending 33 min Level of Care Med/Surg Advanced Directives Existing Living Will: No Existing Power of [place]: No Resuscitation Status FULL RESUSCITATION VTE Prophylaxis VTE Risk Assessment Done? Y/N: Yes Risk Level: Moderate Given or contraindicated: SCD's
[2017-01-03] MEDS: D5NSS + 20MEQ KCL 1,000 ML IV SCH (22:55)
--- NOTE | 2017-01-03 23:22 | Gastrointestinal Consultation ---
Gastrointestinal Consultation Date of Consultation: Jan 03, 2017 History of Present Illness Patient is a 26 year old female with a history of Crohn's disease on Humira for approximately 18 months. The patient has been experiencing right upper quadrant and upper abdominal pain without radiation to the back. To a lesser extent there is mild abdominal pain in the left lower quadrant region. Although the patient generally has diarrhea recently she has been experiencing constipation and does not report a bowel movement today. She reports nausea and vomiting at times although this is nonbloody and without coffee ground emesis and her stool output is not bloody. She feels that the effective Humira which was initially helpful seemed to fade in June of this year. The patient is followed by Drs. Erwin and Jered ([facility]) at which point a recommendation to assess by colonoscopy was made for her response to Humira. This was scheduled for Monday as an outpatient however the patient has had frequent visits and complaints about her right upper abdominal pain and presented to the emergency room again this evening. She has had an extensive workup with laboratory studies imaging studies which are essentially unremarkable except for a gallbladder that shows sludge on ultrasound. There are no inflammatory features identified on CT imaging recently. Recommendations as an outpatient evaluation including a HIDA scan with CCK as well as adding an upper endoscopy to the outpatient colonoscopy this coming Monday. Past Medical/Surgical History Medical Problems: (1) Concussion Status: Acute (2) Crohn disease Status: Acute (3) Dehydration Status: Acute (4) Diffuse abdominal pain Status: Acute (5) Failure of outpatient treatment Status: Acute (6) Gallbladder sludge Status: Acute (7) Vomiting Status: Acute Past Medical History: Crohn's disease. See below Past Surgical History: See below Family History Hypertension And is otherwise noncontributory. Social History Smoking Status: Never Smoker Alcohol Use: occasionally Marital Status: in relationship Housing Status: lives alone Occupation Status: employed See above Allergies Coded Allergies: Hydromorphone (Verified Allergy, Unknown, rash, itching, tongue swelling, 01/03/17) Sulfa Antibiotics (Verified Allergy, Unknown, RASH, 01/03/17) Current Medications Home Meds and Scripts Medications Dose Route/Sig Max Daily Dose Days Date Category Ultram (Tramadol HCl) 50 Mg Tab 1 Tabs PO Q6 PRN 01/02/17 Rx Trazodone (Trazodone HCl) 50 Mg Tab 50 Mg PO HS PRN 01/02/17 Reported Vitamin D 57102 Unit (Ergocalciferol) 50,000 Unit Cap 50,000 Units PO WK 01/02/17 Reported Bentyl (Dicyclomine Hcl) Unknown Strength Cap 1 Dose PO UD PRN 01/02/17 Reported Ondansetron HCl (Ondansetron) 4 Mg Tab 4 Mg PO TID PRN 01/02/17 Reported Nuvaring (Ethinyl Estradiol) Mis 1 Dose PV UD 01/02/17 Reported Humira (Adalimumab) 20 Mg/0.4 Ml Kit 40 Mg INJ [id number] 06/22/14 Reported Review of Systems Constitutional: + fatigue, No fever, No chills, No sweats, No weight loss Eyes: No worsening of vision, No redness ENT: No hearing loss Respiratory: No cough, No sputum, No wheezing, No shortness of breath, No dyspnea on exertion Cardiac: No chest pain, No orthopnea Abdomen: + pain, + nausea, + vomiting, + constipation, No diarrhea, No GI bleeding, No dysphagia, No odynophagia, No acolic stools, No jaundice, No dark urine Musculoskeletal: No joint pain, No muscle pain Female : No dysuria, No hematuria, No incontinence, No abnormal vaginal bleeding Neuro: + numbness/tingling, No memory loss Psych: + anxiety Heme: No abnormal bleeding/bruising Endo: + fatigue Skin: No rash, No itch Physical Exam Date Time Temp Pulse Resp B/P (MAP) Pulse Ox O2 Delivery O2 Flow Rate FiO2 01/03/17 21:00 84 16 130/78 98 01/03/17 20:57 37.2 75 20 119/68 Room Air 99 01/03/17 18:55 79 20 132/84 100 Room Air 01/03/17 17:27 37.1 138 22 147/91 100 Room Air General Appearance: WD/WN, + mild distress Eyes: normal inspection ENT: hearing grossly normal Neck: supple, no adenopathy, no JVD Respiratory/Chest: chest non-tender, lungs clear, normal breath sounds, no respiratory distress Cardiovascular: regular rate, rhythm, no murmur Abdomen: normal bowel sounds, no organomegaly, no pulsatile mass, + tenderness Extremities: normal range of motion, non-tender, normal inspection, no pedal edema, no calf tenderness Neurologic/Psych: no motor/sensory deficits, alert, normal mood/affect, oriented x 3 Skin: normal color, no jaundice, warm/dry, no rash The patient is awake alert and oriented 3. She is accompanied by her fraternal twins sister. The oral mucosa is moist, conjunctiva moist, sclerae are anicteric, there is no evidence for cervical or supraclavicular adenopathy. I do not appreciate thyromegaly. The heart is normal S1-S2, and lungs are clear to auscultation without rales rhonchi or wheezes. The abdomen is soft with tenderness mostly along the right rib margin although this pain is different than that experienced slightly below the rib margin in the right upper quadrant and epigastrium. The latter is more diffuse in nature. There is no rebound or guarding. There are normal active bowel sounds. I do not appreciate an abdominal mass or bruit. There are no ventral wall hernias. A Robledo sign is negative. There is no evidence for ascites or shifting dullness. Extremities are without clubbing cyanosis or edema. A rectal exam is deferred. Laboratory Results Last 24 Hours Test 01/03/17 18:30 01/03/17 19:34 White Blood Count 10.85 K/uL Red Blood Count 4.31 M/uL Hemoglobin 13.3 g/dL Hematocrit 37.5 % Mean Corpuscular Volume 87.0 fL Mean Corpuscular Hemoglobin 30.9 pg Mean Corpuscular Hemoglobin Concent 35.5 g/dl Platelet Count 260 K/uL Mean Platelet Volume 9.6 fL Neutrophils (%) (Auto) 64.7 % Lymphocytes (%) (Auto) 27.6 % Monocytes (%) (Auto) 6.1 % Eosinophils (%) (Auto) 1.1 % Basophils (%) (Auto) 0.3 % Neutrophils # (Auto) 7.03 K/uL Lymphocytes # (Auto) 2.99 K/uL Monocytes # (Auto) 0.66 K/uL Eosinophils # (Auto) 0.12 K/uL Basophils # (Auto) 0.03 K/uL RDW Standard Deviation 40.2 fL RDW Coefficient of Variation 12.5 % Immature Granulocyte % (Auto) 0.2 % Immature Granulocyte # (Auto) 0.02 K/uL Sodium Level 138 mmol/L Potassium Level 3.5 mmol/L Chloride Level 106 mmol/L Carbon Dioxide Level 26 mmol/L Anion Gap 6.0 mmol/L Blood Urea Nitrogen 14 mg/dl Creatinine 0.98 mg/dl Est Creatinine Clear Calc Drug Dose 85.2 ml/min Estimated GFR () 92.3 Estimated GFR (Non- 79.6 BUN/Creatinine Ratio 14.1 Random Glucose 86 mg/dl Calcium Level 8.8 mg/dl Magnesium Level 1.8 mg/dl Total Bilirubin 0.4 mg/dl Aspartate Amino Transf (AST/SGOT) 14 U/L Alanine Aminotransferase (ALT/SGPT) 18 U/L Alkaline Phosphatase 55 U/L Total Protein 7.0 gm/dl Albumin 3.3 gm/dl Globulin 3.7 gm/dl Albumin/Globulin Ratio 0.9 Lipase 129 U/L Human Chorionic Gonadotropin, Qual NEG Urine Color YELLOW Urine Appearance CLOUDY Urine pH 5.5 Urine Specific [place] 1.016 Urine Protein NEG Urine Glucose (UA) NEG Urine Ketones NEG Urine Occult Blood NEG Urine Nitrite NEG Urine Bilirubin NEG Urine Urobilinogen NEG Urine Leukocyte Esterase LARGE Urine WBC (Auto) >30 /hpf Urine RBC (Auto) 0-4 /hpf Urine Hyaline Casts (Auto) 1-5 /lpf Urine Epithelial Cells (Auto) >30 /lpf Urine Bacteria (Auto) 2+ Urine Pathogenic Casts /lpf Impression Patient is a 26 year old female with several days of right sided upper abdominal pain and epigastric pain that has affected her appetite and has produced nausea and vomiting. She has had several visits to the emergency room with laboratory studies and imaging studies obtained all of which essentially are unremarkable except for sludge in the gallbladder. The patient again presented to the emergency room this evening. She had outpatient plans for colonoscopy by Dr. Erwin on Monday for which an upper endoscopy was also to be performed at that time. She does need trough levels for her Humira prior to her next upcoming dose which is plan for either Monday or Monday. Plan I made the following recommendations: Given the recurrent nature of the patient's symptoms ongoing symptoms, and history of Crohn's disease which Humira has lost efficacy, I will plan for an upper endoscopy and colonoscopy for tomorrow after colon bowel prep. The patient would like Dr. Erwin to perform this and this was discussed with him and he will plan to do this tomorrow afternoon. In addition a HIDA CCK study is planned for tomorrow and hopefully this can be coordinated in the mid morning. As the patient will be fasting after she completes her colonoscopy preparation. I also placed an order for adalimumab antibodies and serum level as her current dose is 40 mg every 2 weeks as a maintenance schedule. Depending on the results this may need to be adjusted especially if there is evidence for ongoing inflammation in the colon or terminal ileum. Would maintain patient and nothing by mouth status. Further recommendations once the upper endoscopy colonoscopy and HIDA scan results are available. Thank you for allowing me to participate in this patient's care.
[2017-01-03 23:25] VITALS: BP 112/74; PULSE 74; TEMP 37.1; O2SAT 98
[2017-01-04] VITALS (10 sets, daily range): BP systolic 112–135; BP diastolic 74–86; PULSE 68–102; TEMP 36.8–37.2; O2SAT 97–100
[2017-01-04] MEDS: LAVAGE SOLUTION 4000ML PO SCH ×7 (00:55→02:10)
[2017-01-04] MEDS: ONDANSETRON INJ 2 MG/ML 2 ML VIAL IV PRN ×2 (02:28→15:57)
[2017-01-04] MEDS: D5NSS + 20MEQ KCL 1,000 ML IV SCH (05:28)
[2017-01-04 08:18] LABS: BUN/CREATININE RATIO 9.3 (10-20); CALCIUM 8.1 mg/dl (8.5-10.1); CREATININE 0.87 mg/dl (0.60-1.20); MAGNESIUM 1.9 mg/dl (1.8-2.4); POTASSIUM 4.1 mmol/L (3.5-5.1)
[2017-01-04] MEDS ORDERED: NURSING VERBAL MED ORDER ONE (09:15)
[2017-01-04] MEDS: MoRPHine SULFATE 4 MG/ML 1 ML CARP\\VIAL IV PRN ×3 (09:42→20:21)
[2017-01-04 09:45] LABS: HEMATOCRIT 34.6 % (37-47); MEAN CELL VOLUME 87.6 fL (80-100); MEAN CORPUSCULAR HEMOGLOBIN 29.4 pg (25-34); MEAN CORPUSCULAR HGB CONC 33.5 g/dl (32-36); MEAN PLATELET VOLUME 9.8 fL (7.4-10.4); PLATELET COUNT 230 K/uL (130-400); RED BLOOD COUNT 3.95 M/uL (4.2-5.4); WHITE BLOOD COUNT 7.42 K/uL (4.8-10.8)
[2017-01-04] MEDS ORDERED: PROPOFOL IV EMULSION 10 MG/ML 20 ML VIAL IV ONE (13:56)
[2017-01-04] MEDS ORDERED: LIDOCAINE HCL 2% 2 ML VIAL (20MG/ML) ONE ×2 (13:56)
[2017-01-04] MEDS: KETOROLAC TROMETHAMINE 30 MG/ML VIAL IV PRN ×2 (14:01→21:15)
--- NOTE | 2017-01-04 14:01 | Hospitalist Progress Note ---
Hospitalist Progress Note Date of Service Jan 04, 2017. Subjective Pt evaluation today including: conversation w/ patient, physical exam, chart review, lab review, conversation w/ [facility] consultant (spoke with Dr. Mcneil), review of inpatient medication list Pain: Headache, no abdominal pain currently PO Intake: NPO Voiding: no voiding problems Patient reports feeling relatively well. She does complain of a severe headache at the moment. She also complains of nausea but does not want to take medication for it right now unless it becomes more severe. She denies any vomiting. Her abdominal pain is currently gone after receiving morphine. The patient denies fevers, chills, sweats, chest pain, palpitations, claudication, cough, wheezing, shortness of breath, vomiting, abdominal pain, dysuria, hematuria, urinary retention, paralysis, weakness, numbness and tingling. Additional Comments: See HPI for pertinent positives and negatives. All other systems reviewed and negative. Objective Vital Signs Date Time Temp Pulse Resp B/P (MAP) Pulse Ox O2 Delivery O2 Flow Rate FiO2 01/04/17 08:27 98 Room Air 01/04/17 07:58 37.1 68 16 126/74 (91) 98 Room Air 01/04/17 07:30 Room Air 01/04/17 00:25 37.1 74 17 112/74 97 Room Air 01/03/17 23:25 37.1 74 16 112/74 (87) 98 Room Air 01/03/17 23:15 Room Air 01/03/17 21:00 84 16 130/78 98 01/03/17 20:57 37.2 75 20 119/68 Room Air 99 01/03/17 18:55 79 20 132/84 100 Room Air 01/03/17 17:27 37.1 138 22 147/91 100 Room Air Physical Exam Notes: General appearance: Well-developed, well-nourished, no apparent distress Head: Normocephalic, atraumatic Eyes: Normal inspection, PERRL, EOMI ENT: Normal ENT inspection, hearing grossly normal, pharynx normal Neck: Supple, no JVD, trachea midline Respiratory/Chest: Lungs clear to auscultation, normal breath sounds, no respiratory distress Cardiovascular: Regular rate & rhythm, no gallop, no murmur Abdomen/GI: +RUQ and RLQ TTP. Normal bowel sounds, soft Extremities/Musculoskeletal: Normal inspection, no calf tenderness, no pedal edema Neurological/Psych: Alert, normal mood/affect, oriented x 3 Skin: Normal color, warm/dry, no rash Laboratory Results Last 24 Hours Test 01/03/17 18:30 01/03/17 19:34 01/04/17 07:18 01/04/17 11:29 White Blood Count 10.85 K/uL 7.42 K/uL Red Blood Count 4.31 M/uL 3.95 M/uL Hemoglobin 13.3 g/dL 11.6 g/dL Hematocrit 37.5 % 34.6 % Mean Corpuscular Volume 87.0 fL 87.6 fL Mean Corpuscular Hemoglobin 30.9 pg 29.4 pg Mean Corpuscular Hemoglobin Concent 35.5 g/dl 33.5 g/dl Platelet Count 260 K/uL 230 K/uL Mean Platelet Volume 9.6 fL 9.8 fL Neutrophils (%) (Auto) 64.7 % Lymphocytes (%) (Auto) 27.6 % Monocytes (%) (Auto) 6.1 % Eosinophils (%) (Auto) 1.1 % Basophils (%) (Auto) 0.3 % Neutrophils # (Auto) 7.03 K/uL Lymphocytes # (Auto) 2.99 K/uL Monocytes # (Auto) 0.66 K/uL Eosinophils # (Auto) 0.12 K/uL Basophils # (Auto) 0.03 K/uL RDW Standard Deviation 40.2 fL 41.1 fL RDW Coefficient of Variation 12.5 % 12.7 % Immature Granulocyte % (Auto) 0.2 % Immature Granulocyte # (Auto) 0.02 K/uL Sodium Level 138 mmol/L 142 mmol/L Potassium Level 3.5 mmol/L 4.1 mmol/L Chloride Level 106 mmol/L 112 mmol/L Carbon Dioxide Level 26 mmol/L 27 mmol/L Anion Gap 6.0 mmol/L 3.0 mmol/L Blood Urea Nitrogen 14 mg/dl 8 mg/dl Creatinine 0.98 mg/dl 0.87 mg/dl Est Creatinine Clear Calc Drug Dose 85.2 ml/min 96.0 ml/min Estimated GFR () 92.3 106.6 Estimated GFR (Non- 79.6 91.9 BUN/Creatinine Ratio 14.1 9.3 Random Glucose 86 mg/dl 95 mg/dl Calcium Level 8.8 mg/dl 8.1 mg/dl Magnesium Level 1.8 mg/dl 1.9 mg/dl Total Bilirubin 0.4 mg/dl Aspartate Amino Transf (AST/SGOT) 14 U/L Alanine Aminotransferase (ALT/SGPT) 18 U/L Alkaline Phosphatase 55 U/L Total Protein 7.0 gm/dl Albumin 3.3 gm/dl Globulin 3.7 gm/dl Albumin/Globulin Ratio 0.9 Lipase 129 U/L Human Chorionic Gonadotropin, Qual NEG Urine Color YELLOW Urine Appearance CLOUDY Urine pH 5.5 Urine Specific [place] 1.016 Urine Protein NEG Urine Glucose (UA) NEG Urine Ketones NEG Urine Occult Blood NEG Urine Nitrite NEG Urine Bilirubin NEG Urine Urobilinogen NEG Urine Leukocyte Esterase LARGE Urine WBC (Auto) >30 /hpf Urine RBC (Auto) 0-4 /hpf Urine Hyaline Casts (Auto) 1-5 /lpf Urine Epithelial Cells (Auto) >30 /lpf Urine Bacteria (Auto) 2+ Urine Pathogenic Casts /lpf Assessment and Plan 26 y/o female with a history of Crohn's disease diagnosed 2011, controlled with Humira [id number]. Pt recently had gallbladder work up as an outpatient due to RUQ abdominal pain, nausea and vomiting. Ultrasound showed sludge without acute cholecystitis. Had been scheduled for outpatient HIDA next week but was told to come to ER by her PCP when she developed worsening pain and poor oral intake. CT abdomen/pelvis did not show acute abnormalities and not consistent with acute Crohn's flare. RUQ abdominal pain, N/V--stable -Admitted to med/surg -GI consulted, appreciate recs: scheduled for EGD/colonoscopy today. Obtain HIDA scan and Humira antibodies. -HIDA scan scheduled for 01/05, will keep NPO after midnight again tonight -Morphine 4 mg IV q6h prn pain -Zofran 4 mg IV q6h prn nausea -Resume Humira on discharge DVT prophylaxis -Hold chemical prophylaxis due to endoscopies -SCDs Code Status -Level I, FULL RESUSCITATION STATUS
--- NOTE | 2017-01-04 14:15 | Endo History and Physical ---
History & Physical Date of Service: Jan 04, 2017. Chief Complaint: Abd pain, Crohn's Referring Physician: Rip History of Present Illness For EGD and colonoscopy Past Surgical History Hx Cardiac Surgery: No Hx Abdominal Surgery: No Hx Post-Op Nausea and Vomiting: No Hx Cancer Surgery: No Hx Thoracic Surgery: No Hx Orthopedic: No Hx Urinary Tract Surgery: No Social History Smoking Status: Never Smoker Hx Substance Use: No Hx Alcohol Use: No Allergies Coded Allergies: Hydromorphone (Verified Allergy, Unknown, rash, itching, tongue swelling, 01/03/17) Sulfa Antibiotics (Verified Allergy, Unknown, RASH, 01/03/17) Current Medications Reported Home Medications Medications Dose Route/Sig Max Daily Dose Days Date Category Ultram (Tramadol HCl) 50 Mg Tab 1 Tabs PO Q6 PRN 01/02/17 Rx Trazodone (Trazodone HCl) 50 Mg Tab 50 Mg PO HS PRN 01/02/17 Reported Vitamin D 86606 Unit (Ergocalciferol) 50,000 Unit Cap 50,000 Units PO WK 01/02/17 Reported Bentyl (Dicyclomine Hcl) Unknown Strength Cap 1 Dose PO UD PRN 01/02/17 Reported Ondansetron HCl (Ondansetron) 4 Mg Tab 4 Mg PO TID PRN 01/02/17 Reported Nuvaring (Ethinyl Estradiol) Mis 1 Dose PV UD 01/02/17 Reported Humira (Adalimumab) 20 Mg/0.4 Ml Kit 40 Mg INJ [id number] 06/22/14 Reported Vital Signs Weight (Kilograms): 73.000 Height (Feet): 5 Height (Inches): 4.00 Date Time Temp Pulse Resp B/P (MAP) Pulse Ox O2 Delivery O2 Flow Rate FiO2 01/04/17 08:27 98 Room Air 01/04/17 07:58 37.1 68 16 126/74 (91) 98 Room Air 01/04/17 07:30 Room Air 01/04/17 00:25 37.1 74 17 112/74 97 Room Air 01/03/17 23:25 37.1 74 16 112/74 (87) 98 Room Air 01/03/17 23:15 Room Air 01/03/17 21:00 84 16 130/78 98 01/03/17 20:57 37.2 75 20 119/68 Room Air 99 01/03/17 18:55 79 20 132/84 100 Room Air 01/03/17 17:27 37.1 138 22 147/91 100 Room Air Physical Exam General Appearance: WD/WN Respiratory/Chest: Respiratory effort: no dyspnea Cardiovascular: Heart Auscultation: RRR Abdomen: Inspection & Palpation: soft Assessment and Plan Abd pain, Crohn's for colonoscopy
--- NOTE | 2017-01-04 14:48 | Discharge Instructions ---
Endoscopy Patient Instructions Date / Procedure(s) Performed Jan 04, 2017. Colonoscopy, EGD Allergy Information Coded Allergies: Hydromorphone (Verified Allergy, Unknown, rash, itching, tongue swelling, 01/03/17) Sulfa Antibiotics (Verified Allergy, Unknown, RASH, 01/03/17) Discharge Date / Findings Jan 04, 2017. erosive duodenitis, mild aphthous ulcers of the ICV Medication Instructions Restart Stopped Medication(s): resume meds Current Inpatient Medications Medications (Trade) Dose Ordered Sig/Júnior Route Start Time Stop Time Status Last Admin Dose Admin Acetaminophen (Tylenol Tab) 650 mg Q4H PRN PO 01/03/17 20:30 02/02/17 20:29 Al Hydrox/Mg Hydrox/Simethicone (Maalox Max Susp) 15 ml Q4H PRN PO 01/03/17 20:30 02/02/17 20:29 Magnesium Hydroxide (Milk Of Magnesia Susp) 30 ml Q6H PRN PO 01/03/17 20:30 02/02/17 20:29 Polyethylene (Miralax Powder Packet) 17 gm DAILY PRN PO 01/03/17 20:30 02/02/17 20:29 Ondansetron HCl (Zofran Inj) 4 mg Q6H PRN IV 01/03/17 20:30 02/02/17 20:29 01/04/17 02:28 4 MG Trazodone HCl (Desyrel Tab) 50 mg HS PRN PO 01/03/17 20:30 02/02/17 20:29 Morphine Sulfate (MoRPHine SULFATE INJ) 4 mg Q6H PRN IV 01/04/17 09:30 01/18/17 09:29 01/04/17 09:42 4 MG Ketorolac Tromethamine (Toradol Inj) 30 mg Q6H PRN IV 01/04/17 13:00 01/09/17 12:59 01/04/17 14:01 30 MG Provider Instructions Activity Restrictions - No exercising or heavy lifting for 24 hours. - Do not drink alcohol the day of the procedure. - Do not drive a car or operate machinery until the day after the procedure. - Do not make any important decisions or sign important papers in 24 hours after the procedure. Following Day: - Return to full activity which may include returning to work/school. Diet Start your diet with liquids and light foods (jello, soup, juice, toast). Then eat your usual diet if not nauseated. Treatment For Common After Affects For mild abdominal pain, bloating, or excessive gas: - Rest - Eat lightly - Lie on right side Follow-Up Information Follow-up with as scheduled Anesthesia Information What You Should Know You have had a procedure that required some medicine to reduce anxiety and discomfort. This treatment is called moderate sedation. After receiving the treatment, you may be sleepy, but you will be able to breathe on your own. The effects of the treatment may last for several hours. Follow these instructions along with Activity/Diet recommendations noted above: * Do NOT do anything where dizziness or clumsiness would be dangerous. * Rest quietly at home today, then you can be up and about tomorrow. * Have a responsible person stay with you the rest of today. * You may have had an I.V. today. If so, you may take the dressing off later today. Recommendations Call your doctor if: * Trouble breathing * Continuous vomiting for more than 24 hours * Temperature above 101 degrees * Severe abdominal pain or bloating * Pain not relieved by pain medicine ordered * There is increased drainage or redness from any incision * A large amount of rectal bleeding greater than 2-3 tablespoons. (If you had a polyp/s removed or have hemorrhoids, a small amount of blood - from the rectum is to be expected.) * You have any unanswered questions or concerns. IN THE EVENT OF A SERIOUS EMERGENCY, GO TO THE NEAREST EMERGENCY ROOM Your discharge instructions were prepared by provider Blaze Erwin. Patient Instructions Signature Page Liliana Connor Patient (or Guardian) Signature/Date: I have read and understand the instructions given to me by my caregivers. Caregiver/RN/Doctor Signature/Date: The above-named patient and/or guardian has received patient instructions on this date. + Original Patient Signature Page (only) stays with chart. Please make copy for patient.
--- NOTE | 2017-01-04 14:53 | Gastroenterology Progress Note ---
Progress Note Date of Service: Jan 04, 2017 Subjective Pt evaluation today including: conversation w/ patient, chart review, lab review, review of studies Medications Current Inpatient Medications Medications (Trade) Dose Ordered Sig/Júnior Route Start Time Stop Time Status Last Admin Dose Admin Acetaminophen (Tylenol Tab) 650 mg Q4H PRN PO 01/03/17 20:30 02/02/17 20:29 Al Hydrox/Mg Hydrox/Simethicone (Maalox Max Susp) 15 ml Q4H PRN PO 01/03/17 20:30 02/02/17 20:29 Magnesium Hydroxide (Milk Of Magnesia Susp) 30 ml Q6H PRN PO 01/03/17 20:30 02/02/17 20:29 Polyethylene (Miralax Powder Packet) 17 gm DAILY PRN PO 01/03/17 20:30 02/02/17 20:29 Ondansetron HCl (Zofran Inj) 4 mg Q6H PRN IV 01/03/17 20:30 02/02/17 20:29 01/04/17 02:28 4 MG Trazodone HCl (Desyrel Tab) 50 mg HS PRN PO 01/03/17 20:30 02/02/17 20:29 Morphine Sulfate (MoRPHine SULFATE INJ) 4 mg Q6H PRN IV 01/04/17 09:30 01/18/17 09:29 01/04/17 09:42 4 MG Ketorolac Tromethamine (Toradol Inj) 30 mg Q6H PRN IV 01/04/17 13:00 01/09/17 12:59 01/04/17 14:01 30 MG Objective Vital Signs Date Time Temp Pulse Resp B/P (MAP) Pulse Ox O2 Delivery O2 Flow Rate FiO2 01/04/17 14:14 36.9 79 16 120/78 (92) 98 Room Air 01/04/17 08:27 98 Room Air 01/04/17 07:58 37.1 68 16 126/74 (91) 98 Room Air 01/04/17 07:30 Room Air 01/04/17 00:25 37.1 74 17 112/74 97 Room Air 01/03/17 23:25 37.1 74 16 112/74 (87) 98 Room Air 01/03/17 23:15 Room Air 01/03/17 21:00 84 16 130/78 98 01/03/17 20:57 37.2 75 20 119/68 Room Air 99 01/03/17 18:55 79 20 132/84 100 Room Air 01/03/17 17:27 37.1 138 22 147/91 100 Room Air Physical Exam General Appearance: WD/WN Eyes: normal inspection ENT: normal ENT inspection Respiratory/Chest: lungs clear Cardiovascular: regular rate, rhythm Abdomen: + tenderness Laboratory Results Last 24 Hours Test 01/03/17 18:30 01/03/17 19:34 01/04/17 07:18 01/04/17 11:29 White Blood Count 10.85 K/uL 7.42 K/uL Red Blood Count 4.31 M/uL 3.95 M/uL Hemoglobin 13.3 g/dL 11.6 g/dL Hematocrit 37.5 % 34.6 % Mean Corpuscular Volume 87.0 fL 87.6 fL Mean Corpuscular Hemoglobin 30.9 pg 29.4 pg Mean Corpuscular Hemoglobin Concent 35.5 g/dl 33.5 g/dl Platelet Count 260 K/uL 230 K/uL Mean Platelet Volume 9.6 fL 9.8 fL Neutrophils (%) (Auto) 64.7 % Lymphocytes (%) (Auto) 27.6 % Monocytes (%) (Auto) 6.1 % Eosinophils (%) (Auto) 1.1 % Basophils (%) (Auto) 0.3 % Neutrophils # (Auto) 7.03 K/uL Lymphocytes # (Auto) 2.99 K/uL Monocytes # (Auto) 0.66 K/uL Eosinophils # (Auto) 0.12 K/uL Basophils # (Auto) 0.03 K/uL RDW Standard Deviation 40.2 fL 41.1 fL RDW Coefficient of Variation 12.5 % 12.7 % Immature Granulocyte % (Auto) 0.2 % Immature Granulocyte # (Auto) 0.02 K/uL Sodium Level 138 mmol/L 142 mmol/L Potassium Level 3.5 mmol/L 4.1 mmol/L Chloride Level 106 mmol/L 112 mmol/L Carbon Dioxide Level 26 mmol/L 27 mmol/L Anion Gap 6.0 mmol/L 3.0 mmol/L Blood Urea Nitrogen 14 mg/dl 8 mg/dl Creatinine 0.98 mg/dl 0.87 mg/dl Est Creatinine Clear Calc Drug Dose 85.2 ml/min 96.0 ml/min Estimated GFR () 92.3 106.6 Estimated GFR (Non- 79.6 91.9 BUN/Creatinine Ratio 14.1 9.3 Random Glucose 86 mg/dl 95 mg/dl Calcium Level 8.8 mg/dl 8.1 mg/dl Magnesium Level 1.8 mg/dl 1.9 mg/dl Total Bilirubin 0.4 mg/dl Aspartate Amino Transf (AST/SGOT) 14 U/L Alanine Aminotransferase (ALT/SGPT) 18 U/L Alkaline Phosphatase 55 U/L Total Protein 7.0 gm/dl Albumin 3.3 gm/dl Globulin 3.7 gm/dl Albumin/Globulin Ratio 0.9 Lipase 129 U/L Human Chorionic Gonadotropin, Qual NEG Urine Color YELLOW Urine Appearance CLOUDY Urine pH 5.5 Urine Specific [place] 1.016 Urine Protein NEG Urine Glucose (UA) NEG Urine Ketones NEG Urine Occult Blood NEG Urine Nitrite NEG Urine Bilirubin NEG Urine Urobilinogen NEG Urine Leukocyte Esterase LARGE Urine WBC (Auto) >30 /hpf Urine RBC (Auto) 0-4 /hpf Urine Hyaline Casts (Auto) 1-5 /lpf Urine Epithelial Cells (Auto) >30 /lpf Urine Bacteria (Auto) 2+ Urine Pathogenic Casts /lpf Assessment and Plan Abd pain, Crohn's colitis. EGD shows mild erosive duodenitis. Colonoscopy into the ileum shows only a couple aphthous ulcers on the ICV. Plan for HIDA tomorrow. Check ESR.Humira antibodies and level have been drawn.
--- NOTE | 2017-01-04 14:56 | GI REPORT ---
Procedure Date: 01/04/2017 2:29 PM Procedure: Upper GI endoscopy Indications: Generalized abdominal pain Medicines: Propofol total dose 360 mg IV, Lidocaine 80 mg IV Complications: No immediate complications. Estimated Blood Loss: Estimated blood loss: none. Procedure: Pre-Anesthesia Assessment: - Prior to the procedure, a History and Physical was performed, and patient medications, allergies and sensitivities were reviewed. The patient's tolerance of previous anesthesia was reviewed. - The risks and benefits of the procedure and the sedation options and risks were discussed with the patient. All questions were answered and informed consent was obtained. After obtaining informed consent, the endoscope was passed under direct vision. Throughout the procedure, the patient's blood pressure, pulse, and oxygen saturations were monitored continuously. The scope was introduced through the mouth, and advanced to the second part of duodenum. The upper GI endoscopy was accomplished without difficulty. The patient tolerated the procedure well. Findings: The examined esophagus was normal. The entire examined stomach was normal. A few localized erosions without bleeding were found in the duodenal bulb. Impression: - Normal esophagus. - Normal stomach. - Duodenal erosions without bleeding. - No specimens collected. Recommendation: - Return patient [facility] for [facility] care. Blaze Erwin M.D. Blaze Erwin MD 01/04/2017 2:56:15 PM This report has been signed electronically. Note Initiated On: 01/04/2017 2:29 PM I attest to the content of the Intraoperative Record and orders documented therein, exceptions below
--- NOTE | 2017-01-04 15:00 | GI REPORT ---
Procedure Date: 01/04/2017 2:34 PM Procedure: Colonoscopy Indications: Abdominal pain in the right upper quadrant, Crohn's disease of the colon Medicines: Propofol total dose 360 mg IV, Lidocaine 80 mg IV Complications: No immediate complications. Estimated Blood Loss: Estimated blood loss: none. Procedure: Pre-Anesthesia Assessment: - Prior to the procedure, a History and Physical was performed, and patient medications, allergies and sensitivities were reviewed. The patient's tolerance of previous anesthesia was reviewed. - The risks and benefits of the procedure and the sedation options and risks were discussed with the patient. All questions were answered and informed consent was obtained. After I obtained informed consent, the scope was passed under direct vision. Throughout the procedure, the patient's blood pressure, pulse, and oxygen saturations were monitored continuously. The scope was introduced through the anus and advanced to the terminal ileum. The colonoscopy was performed without difficulty. The patient tolerated the procedure well. The quality of the bowel preparation was good. Findings: Two localized non-bleeding aphthae were found at the ileocecal valve. No stigmata of recent bleeding were seen. The colon (entire examined portion) appeared normal. The terminal ileum appeared normal. Impression: - Aphtha at the ileocecal valve. - The entire examined colon is normal. - The examined portion of the ileum was normal. - No specimens collected. Recommendation: - Return patient to [facility] for [facility] care. Blaze Erwin M.D. Blaze Erwin MD 01/04/2017 2:59:48 PM This report has been signed electronically. Note Initiated On: 01/04/2017 2:34 PM I attest to the content of the Intraoperative Record and orders documented therein, exceptions below
--- NOTE | 2017-01-04 15:16 | Anesthesiology Progress Note ---
Anesthesia Post Op Note Date & Time Jan 04, 2017 at 15:16 Vital Signs Pain Intensity: 3 Vital Signs Past 12 Hours Date Time Temp Pulse Resp B/P (MAP) Pulse Ox O2 Delivery O2 Flow Rate FiO2 01/04/17 15:05 79 16 116/68 (84) 100 Room Air 01/04/17 14:50 79 16 137/92 (107) 99 Room Air 01/04/17 14:14 36.9 79 16 120/78 (92) 98 Room Air 01/04/17 08:27 98 Room Air 01/04/17 07:58 37.1 68 16 126/74 (91) 98 Room Air 01/04/17 07:30 Room Air Notes Mental Status: alert / awake / arousable, participated in evaluation Pt Amnestic to Procedure: Yes Nausea / Vomiting: adequately controlled Pain: adequately controlled Airway Patency, RR, SpO2: stable & adequate BP & HR: stable & adequate Hydration State: stable & adequate Anesthetic Complications: no major complications apparent
[2017-01-04] MEDS: ACETAMINOPHEN 325 MG TAB PO PRN (17:22)
[2017-01-04] MEDS: TRAZODONE HCL 50 MG TAB PO PRN (22:48)
[2017-01-05] MEDS: ONDANSETRON INJ 2 MG/ML 2 ML VIAL IV PRN (05:51)
[2017-01-05 06:58] LABS: HEMATOCRIT 36.8 % (37-47); MEAN CELL VOLUME 88.5 fL (80-100); MEAN PLATELET VOLUME 9.9 fL (7.4-10.4); PLATELET COUNT 205 K/uL (130-400); RED BLOOD COUNT 4.16 M/uL (4.2-5.4); WHITE BLOOD COUNT 8.61 K/uL (4.8-10.8)
[2017-01-05 07:00] VITALS: BP 117/76; PULSE 87; TEMP 37.1; O2SAT 96
[2017-01-05 07:26] LABS: BUN/CREATININE RATIO 9.4 (10-20); CALCIUM 8.2 mg/dl (8.5-10.1); CREATININE 0.81 mg/dl (0.60-1.20); POTASSIUM 3.9 mmol/L (3.5-5.1)
[2017-01-05 09:51] VITALS: BP 127/84; PULSE 72; TEMP 36.9; O2SAT 99
[2017-01-05] MEDS: KETOROLAC TROMETHAMINE 30 MG/ML VIAL IV PRN ×2 (11:15→18:25)
--- NOTE | 2017-01-05 11:45 | DIAGNOSTIC IMAGING REPORT ---
HEPATOBILIARY HIDA IMAGING CLINICAL HISTORY: 26 years-old Female presenting with RUQ abdominal pain, ultrasound negative, history of Crohn's colitis. TECHNIQUE: Dynamic imaging of the gallbladder was performed after administration of 5.5 mCi of technetium 99m Choletec. COMPARISON: CT from 01/03/2017. FINDINGS: The hepatobiliary scan shows normal radiotracer uptake of the liver and excretion into the biliary duct system. Radiotracer activity in the small bowel noted, and subsequently normal filling of the gallbladder. Reflux into the stomach also noted, normal. IMPRESSION: 1. No evidence of cholecystitis. Normal gallbladder. Electronically signed by: Kilo Jiménez M.D. 01/05/2017 11:43 AM Dictated Date/Time: 01/05/2017 11:39 AM
--- NOTE | 2017-01-05 11:51 | Progress Note ---
Subjective Date of Service: Jan 05, 2017. Subjective Pt evaluation today including: conversation w/ patient, conversation w/ family , physical exam, chart review, conversation w/ fundraising consultant, review of inpatient medication list Report mild abdominal pain, and is planning to do HIDA scan,, was nothing by mouth when I saw her, no other complaint Problem List Medical Problems: (1) Concussion Status: Acute (2) Crohn disease Status: Acute (3) Dehydration Status: Acute (4) Diffuse abdominal pain Status: Acute (5) Failure of outpatient treatment Status: Acute (6) Gallbladder sludge Status: Acute (7) Vomiting Status: Acute Review of Systems Constitutional: + fatigue, No fever, No chills, No sweats, No weight loss, No weakness, No problem reported Eyes: No worsening of vision, No eye pain, No redness, No discharge, No diplopia ENT: No hearing loss, No unusual epistaxis, No nasal symptoms, No sore throat, No tinnitus, No dental problems, No trouble swallowing Respiratory: No cough, No sputum, No wheezing, No shortness of breath, No dyspnea on exertion, No dyspnea at rest, No hemoptysis Cardiac: No chest pain, No orthopnea, No PND, No edema, No claudication, No palpitations Abdomen: + pain, No nausea, No vomiting, No diarrhea, No constipation Musculoskeletal: No joint pain, No muscle pain, No swelling, No calf pain Female : No dysuria, No urinary frequency, No hematuria, No incontinence, No abnormal vaginal bleeding, No vaginal discharge Neurologic: No memory loss, No paralysis, No weakness, No numbness/tingling, No vertigo, No balance problems Psychiatric: No depression symptoms, No anhedonism, No anxiety, No insomnia, No substance abuse Heme: No abnormal bleeding/bruising, No clotting problems, No swollen lymph nodes, No night sweats Endo: No fatigue, No excessive thirst, No excessive urination Skin: No rash, No itch, No new/changing skin lesions, No color change, No bleeding Objective Vital Signs Date Time Temp Pulse Resp B/P (MAP) Pulse Ox O2 Delivery O2 Flow Rate FiO2 01/05/17 09:51 36.9 72 16 127/84 99 Room Air 99 01/05/17 08:25 Room Air 01/05/17 07:00 37.1 87 20 117/76 (90) 96 Room Air 01/05/17 00:10 Room Air 01/04/17 23:10 36.9 72 16 127/84 (98) 99 Room Air 01/04/17 22:02 36.9 71 18 135/86 (102) 100 Room Air 01/04/17 19:14 36.8 102 18 117/75 (89) 97 Room Air 01/04/17 18:08 37.0 81 18 114/76 (89) 98 Room Air 01/04/17 17:19 37.2 81 16 113/82 (92) 98 Room Air 01/04/17 16:30 37.1 76 16 122/81 (95) 98 Room Air 01/04/17 16:11 37.0 79 18 125/83 (97) 97 Room Air 01/04/17 15:25 Room Air 01/04/17 15:20 66 16 125/78 (94) 100 Room Air 01/04/17 15:05 79 16 116/68 (84) 100 Room Air 01/04/17 14:50 79 16 137/92 (107) 99 Room Air 01/04/17 14:14 36.9 79 16 120/78 (92) 98 Room Air Physical Exam General Appearance: WD/WN, no apparent distress Eyes: normal inspection, PERRL, EOMI, sclerae normal ENT: normal ENT inspection, hearing grossly normal, pharynx normal Neck: supple, no adenopathy, thyroid normal, no JVD, no carotid bruits, trachea midline Respiratory/Chest: chest non-tender, lungs clear, normal breath sounds, no respiratory distress, no accessory muscle use Cardiovascular: regular rate, rhythm, no edema, no gallop, no JVD, no murmur Abdomen: normal bowel sounds, non tender, soft, no organomegaly, no pulsatile mass Extremities: normal range of motion, non-tender, normal inspection, no pedal edema, no calf tenderness, normal capillary refill, pelvis stable Neurologic/Psychiatric: stevedore dock II-XII nml as tested, no motor/sensory deficits, alert, normal mood/affect, oriented x 3 Skin: normal color, warm/dry, no rash Lymphatic: no adenopathy Laboratory Results Last 24 Hours Test 01/05/17 06:40 White Blood Count 8.61 K/uL Red Blood Count 4.16 M/uL Hemoglobin 12.5 g/dL Hematocrit 36.8 % Mean Corpuscular Volume 88.5 fL Mean Corpuscular Hemoglobin 30.0 pg Mean Corpuscular Hemoglobin Concent 34.0 g/dl RDW Standard Deviation 41.0 fL RDW Coefficient of Variation 12.8 % Platelet Count 205 K/uL Mean Platelet Volume 9.9 fL Sodium Level 141 mmol/L Potassium Level 3.9 mmol/L Chloride Level 112 mmol/L Carbon Dioxide Level 24 mmol/L Anion Gap 5.0 mmol/L Blood Urea Nitrogen 8 mg/dl Creatinine 0.81 mg/dl Est Creatinine Clear Calc Drug Dose 103.1 ml/min Estimated GFR () 116.2 Estimated GFR (Non- 100.2 BUN/Creatinine Ratio 9.4 Random Glucose 83 mg/dl Calcium Level 8.2 mg/dl Assessment and Plan 26 y/o female admitted on 01/03/2017 from ER for possible Crohn disease flaring with worsening pain and poor oral intake. Per report , she has a history of Crohn's disease diagnosed 2011, controlled with Humira [id number]. Pt recently had gallbladder work up as an outpatient due to RUQ abdominal pain, nausea and vomiting. Ultrasound showed sludge without acute cholecystitis. Had been scheduled for outpatient HIDA next week Emergency room , CT abdomen/pelvis did not show acute abnormalities and not consistent with acute Crohn's flare. RUQ abdominal pain, and diffuse abdominal pain, N/V--stable Possible Crohn disease flaring? -Admitted to med/surg -GI consulted, appreciate recs: scheduled for EGD/colonoscopy today. Obtained HIDA scan and Humira antibodies. - EGD and colonoscopy was done today, results see below -HIDA scan was done, no evidence of acute cholecystitis -Morphine 4 mg IV q6h prn pain -Zofran 4 mg IV q6h prn nausea - Restart diet, increase activity and planning for discharge -Resume Humira on discharge EGD results in below: - Normal esophagus. - Normal stomach. - Duodenal erosions without bleeding. - No specimens collected. Recommendation per GI: Return patient to [facility] for ongoing care. Colonoscopy results in below: Two localized non-bleeding aphthae were found at the ileocecal valve. No stigmata of recent bleeding were seen. The colon (entire examined portion) appeared normal. The terminal ileum appeared normal. Impression: - Aphtha at the ileocecal valve. - The entire examined colon is normal. - The examined portion of the ileum was normal. - No specimens collected. Recommendation per GI: -Return patient to [facility] for ongoing care. Will discussed with GI for next step DVT prophylaxis -Hold chemical prophylaxis due to endoscopies -SCDs Code Status -Level I, FULL RESUSCITATION STATUS - Discussed with patient and mom, answered all the questions - We'll possible discharge home late afternoon or tomorrow if patient tolerated diet and if agree with GI Continued [facility] stay due to: other Discharge planning: home
[2017-01-05] MEDS: ACETAMINOPHEN 325 MG TAB PO PRN (13:03)
[2017-01-05 15:09] VITALS: BP 115/74; PULSE 83; TEMP 37.2; O2SAT 97
--- NOTE | 2017-01-05 16:12 | Gastroenterology Progress Note ---
Progress Note Date of Service: Jan 05, 2017 Subjective Pt evaluation today including: conversation w/ patient, conversation w/ family , physical exam, chart review, lab review, review of studies The patient events since the last GI assessment were reviewed. Patient underwent HIDA scan today and was normal with filling of the gallbladder and emptying. CCK was not administered. Patient underwent upper endoscopy and colonoscopy yesterday aphthous ulcers at the ileocecal valve and an upper endoscopy with mild gastritis without ulcerations. Samples were not obtained. Patient continues to report 6 out of 10 abdominal pain although appears comfortable in bed at this time. She has been using a heating pad which provided some relief and again reports that much of her symptoms started in the right upper quadrant and to a lesser extent in the epigastrium across the left side and then wraps around bilaterally to the back. CT imaging was without inflammation. Patient has no fevers or chills and appears to tolerate oral intake reasonably well although meals can be bothersome and produce her pain. Historically the patient reports that she did have a 20 pound weight gain over the past several months that she believes was related to use of Cymbalta. This has been discontinued for the past month. Nevertheless her weight remains higher than she would expect. She is due for a Humira dose on Monday and his currently on 40 mg every other week. Humira levels were drawn yesterday and will represent essentially trough levels once available. Patient's history of Crohn's diagnosis is from [address] Taylor although the extent of disease is not known by the patient. Review of Systems Constitutional: + see HPI, No fever, No chills Eyes: + see HPI Respiratory: No cough, No sputum, No wheezing, No shortness of breath Cardiac: No chest pain, No edema Abdomen: + pain, + nausea, No vomiting, No diarrhea, No constipation, No GI bleeding, No dysphagia, No odynophagia, No jaundice, No dark urine Female : No dysuria, No urinary frequency Neuro: + numbness/tingling, No memory loss Psych: + anxiety Heme: No abnormal bleeding/bruising Endo: + fatigue Skin: No rash, No itch Medications Current Inpatient Medications Medications (Trade) Dose Ordered Sig/Júnior Route Start Time Stop Time Status Last Admin Dose Admin Acetaminophen (Tylenol Tab) 650 mg Q4H PRN PO 01/03/17 20:30 02/02/17 20:29 01/05/17 13:03 650 MG Al Hydrox/Mg Hydrox/Simethicone (Maalox Max Susp) 15 ml Q4H PRN PO 01/03/17 20:30 02/02/17 20:29 Magnesium Hydroxide (Milk Of Magnesia Susp) 30 ml Q6H PRN PO 01/03/17 20:30 02/02/17 20:29 Polyethylene (Miralax Powder Packet) 17 gm DAILY PRN PO 01/03/17 20:30 02/02/17 20:29 Ondansetron HCl (Zofran Inj) 4 mg Q6H PRN IV 01/03/17 20:30 02/02/17 20:29 01/05/17 05:51 4 MG Trazodone HCl (Desyrel Tab) 50 mg HS PRN PO 01/03/17 20:30 02/02/17 20:29 01/04/17 22:48 50 MG Morphine Sulfate (MoRPHine SULFATE INJ) 4 mg Q6H PRN IV 01/04/17 09:30 01/18/17 09:29 01/04/17 20:21 4 MG Ketorolac Tromethamine (Toradol Inj) 30 mg Q6H PRN IV 01/04/17 13:00 01/09/17 12:59 01/05/17 11:15 30 MG Objective Vital Signs Date Time Temp Pulse Resp B/P (MAP) Pulse Ox O2 Delivery O2 Flow Rate FiO2 01/05/17 15:09 37.2 83 18 115/74 (88) 97 Room Air 01/05/17 09:51 36.9 72 16 127/84 99 Room Air 99 01/05/17 08:25 Room Air 01/05/17 07:00 37.1 87 20 117/76 (90) 96 Room Air 01/05/17 00:10 Room Air 01/04/17 23:10 36.9 72 16 127/84 (98) 99 Room Air 01/04/17 22:02 36.9 71 18 135/86 (102) 100 Room Air 01/04/17 19:14 36.8 102 18 117/75 (89) 97 Room Air 01/04/17 18:08 37.0 81 18 114/76 (89) 98 Room Air 01/04/17 17:19 37.2 81 16 113/82 (92) 98 Room Air 01/04/17 16:30 37.1 76 16 122/81 (95) 98 Room Air 01/04/17 16:11 37.0 79 18 125/83 (97) 97 Room Air Physical Exam General Appearance: WD/WN, no apparent distress ENT: hearing grossly normal Neck: supple, no adenopathy, thyroid normal Respiratory/Chest: chest non-tender, lungs clear, normal breath sounds, no respiratory distress Cardiovascular: regular rate, rhythm, no edema, no murmur Abdomen: normal bowel sounds, non tender, soft, no organomegaly, no pulsatile mass Extremities: normal range of motion, no pedal edema Neurologic/Psych: no motor/sensory deficits, alert, normal mood/affect, oriented x 3 Skin: normal color, no jaundice, warm/dry, no rash The patient is awake alert and oriented 3 and her mother is present with her. Oral mucosa moist, heart normal S1-S2, lungs clear to auscultation, abdomen is soft nontender with mild to moderate palpation there is no rebound or guarding. I do not appreciate abdominal bruits or hepatosplenomegaly. There are normal bowel sounds. Stram is without clubbing cyanosis or edema. Peripheral extremities and joints show no focal tenderness or erythema. A rectal exam is deferred Laboratory Results Last 24 Hours Test 01/05/17 06:40 White Blood Count 8.61 K/uL Red Blood Count 4.16 M/uL Hemoglobin 12.5 g/dL Hematocrit 36.8 % Mean Corpuscular Volume 88.5 fL Mean Corpuscular Hemoglobin 30.0 pg Mean Corpuscular Hemoglobin Concent 34.0 g/dl RDW Standard Deviation 41.0 fL RDW Coefficient of Variation 12.8 % Platelet Count 205 K/uL Mean Platelet Volume 9.9 fL Sodium Level 141 mmol/L Potassium Level 3.9 mmol/L Chloride Level 112 mmol/L Carbon Dioxide Level 24 mmol/L Anion Gap 5.0 mmol/L Blood Urea Nitrogen 8 mg/dl Creatinine 0.81 mg/dl Est Creatinine Clear Calc Drug Dose 103.1 ml/min Estimated GFR () 116.2 Estimated GFR (Non- 100.2 BUN/Creatinine Ratio 9.4 Random Glucose 83 mg/dl Calcium Level 8.2 mg/dl HIDA scan was reviewed and unremarkable. Assessment and Plan Assessment and plan Patient with 5 year history of Crohn's disease and has been on Humira for approximately 15 months for which she believes her symptom control has waned since June this year. There's been weight gain associated with these symptoms of abdominal pain although food seems to bother the patient. It' s unclear Cymbalta contributed to some of her prior weight gain. The patient also has joint complaints that are mostly in the feet and hands and a sense that she has swelling at times. There are no rashes. It was difficult to determine if the joint symptoms were worse toward the next scheduled dose of her Humira. Humira levels and antibodies are pending. I made the following recommendations: Would continue with next scheduled dose of Humira for Monday and continue the 40 mg every other week until levels are back to determine any changes that may be necessary. I do believe that some of her abdominal pain is related to abdominal wall tenderness and pain perhaps near the insertion of abdominal muscles into the right costal margin and moist heat should be continued intermittently. Tylenol 2 regular strength tablets twice daily may be acceptable and she should avoid the use of alcoholic beverages. It's unclear if all of her symptoms are related to abdominal wall tenderness but it may be beneficial for her to have an evaluation by chronic pain management the see if either local therapy or modification of her medications may help modulate her pain awareness. Lidocaine patch may be worthwhile if not recently attempted. She is scheduled for rheumatology appointment in March at [facility] and I'll see if this appointment can be moved up along with a follow-up visit with Dr. Lawton from IBD clinic and perhaps an evaluation by pain management at [place]. If she is tolerating intake well and pain control is tolerable, it is reasonable to discharge the patient to home with a low residue low fat diet. All of the patient's questions were answered. The patient will follow with Dr. Erwin in GI clinic as previously scheduled. Thank you for allowing us to participate in this patient's care
[2017-01-05] MEDS: TRAZODONE HCL 50 MG TAB PO PRN (21:13)
[2017-01-05 23:19] VITALS: BP 110/61; PULSE 77; TEMP 36.8; O2SAT 98
[2017-01-06 06:49] LABS: HEMATOCRIT 35.8 % (37-47); MEAN CELL VOLUME 87.1 fL (80-100); MEAN CORPUSCULAR HEMOGLOBIN 29.4 pg (25-34); MEAN CORPUSCULAR HGB CONC 33.8 g/dl (32-36); MEAN PLATELET VOLUME 9.9 fL (7.4-10.4); PLATELET COUNT 229 K/uL (130-400); RED BLOOD COUNT 4.11 M/uL (4.2-5.4); WHITE BLOOD COUNT 7.38 K/uL (4.8-10.8)
[2017-01-06 07:19] LABS: BUN/CREATININE RATIO 11.5 (10-20); CALCIUM 8.4 mg/dl (8.5-10.1); CREATININE 0.83 mg/dl (0.60-1.20); POTASSIUM 3.7 mmol/L (3.5-5.1)
[2017-01-06 07:34] VITALS: BP 104/65; PULSE 89; TEMP 37; O2SAT 97
--- NOTE | 2017-01-06 10:11 | Discharge Instructions ---
Discharge Instructions Date of Service Jan 06, 2017. Admission Reason for Admission: Abdominal Pain, Crohns, Colitis Discharge Discharge Diagnosis / Problem: Abdominal pain, duodenitis Discharge Goals Goal(s): Decrease discomfort, Diagnostic testing, Therapeutic intervention Activity Recommendations Activity Limitations: resume your previous activity (as tolerated) . Instructions / Follow-Up Instructions / Follow-Up You were admitted to the hospital with abdominal pain, nausea, and vomiting. Work up included a CT scan of your abdomen and pelvis, upper endoscopy, colonoscopy, and HIDA scan. The CT scan was negative for any acute findings and did not show evidence of an acute Crohn's disease flare. The upper endoscopy did show some non-bleeding erosions of the duodenum, or first portion of the small intestine, consistent with a mild erosive duodenitis. The colonoscopy showed a few aphthous ulcers at the ileocecal valve but was otherwise normal. The HIDA scan was also normal. Lab tests regarding your Humira are pending, and will have to be followed up on as an outpatient. Continue your current regimen for now. As your pain is improving and you are tolerating a regular diet, you are now medically stable for discharge. Recommendations: *You may apply a moist heat to your abdomen to help relieve the pain. You may also take Tylenol over the counter as needed for pain. 2 regular strength tabs twice a day is recommended. *Please follow a low fat diet. Avoid drinking alcohol or using NSAIDs (such as ibuprofen or naproxen). Medications: *Continue your home medications as prescribed. Follow up: *Please follow up with your primary care provider within 1 week regarding your hospitalization. *Keep your previously scheduled appointment with Dr. Erwin. *Continue to follow up with your specialists at [place]. Please seek medical attention if you experience fevers, chills, sweats, dizziness/lightheadedness, loss of consciousness, chest pain, shortness of breath, nausea, vomiting, worsening abdominal pain, numbness or tingling. Current Hospital Diet Patient's current hospital diet: Regular Diet Discharge Diet Recommended Diet: Low Fat Diet Procedures Procedures Performed: Esophagogastroduodenoscopy, colonscopy Pending Studies Studies pending at discharge: yes List of pending studies: Adalimumab level, anti-adalimumab antibodies Medical Emergencies . Who to Call and When: Medical Emergencies: If at any time you feel your situation is an emergency, please call 911 immediately. . Non-Emergent Contact Non-Emergency issues call your: Primary Care Provider, Director Of Mechanical Engineering, Specialist (IBD specialist) Call Non-Emergent contact if: you have a fever, your pain is not controlled, your pain is worsening, your pain is unusual for you, your pain is concerning you, you have any medication questions . Past History Medical & Surgical History: (1) Duodenitis (2) Abdominal pain (3) CD (Crohn's disease) . "Provider Documentation" section prepared by Jeannie Muller. . VTE Core Measure Inpt VTE Proph given/why not?: SCD's
[2017-01-06 10:30] VITALS: BP 104/65; PULSE 89; TEMP 37; O2SAT 97
--- NOTE | 2017-01-06 14:26 | Discharge Summary ---
Discharge Summary Date of Service Jan 06, 2017. Discharge Summary Admission Date: Jan 03, 2017 at 20:27 Discharge Date: Jan 06, 2017 Discharge Disposition: Home Principal Diagnosis: Duodenitis, abdominal pain Procedures: CT HEAD WITHOUT CONTRAST (CT) CLINICAL HISTORY: Severe headache and right-sided numbness COMPARISON STUDY: 03/18/2016 TECHNIQUE: Axial CT of the brain is performed from the vertex to the skull base. IV contrast was not administered for this examination. CT DOSE: FINDINGS: No intra or extra-axial mass lesions are visualized. There is no CT evidence of acute cortical infarction. There is no evidence of midline shift. There is no acute hemorrhage. No calvarial fractures are visualized. There is no evidence of pathologic ventricular dilatation. There is minimal sphenoid sinus mucosal thickening versus partial volume averaging artifact. IMPRESSION: No acute intracranial findings CT SCAN OF THE ABDOMEN AND PELVIS WITHOUT CONTRAST CLINICAL HISTORY: Right-sided abdominal pain. History of Crohn's. COMPARISON STUDY: 07/26/2014 TECHNIQUE: CT scan of the abdomen and pelvis was performed from the lung bases to the proximal femurs. Images are reviewed in the axial, sagittal, and coronal planes. IV contrast was not administered for this examination. CT DOSE: 1248.02 mGy.cm FINDINGS: Lower chest: There are minimal dependent atelectatic changes Liver: The unenhanced liver is normal in size, contour, and attenuation. There is no intrahepatic biliary ductal dilatation. Gallbladder: Unremarkable. Spleen: Normal in size and attenuation. Pancreas: Unremarkable. Adrenal glands: Unremarkable. Kidneys: No renal, ureteral, or bladder calculi are visualized. Bowel: There are no transition zones indicate bowel obstruction. There is no acute diverticulitis. There is no acute appendicitis. There is a small amount of formed fecal material within the distal ileum. There is no pathologic distal ileal dilatation. There is scattered stool present throughout the colon. Peritoneum: There is no intraperitoneal free air or abdominal ascites. Vasculature: The abdominal aorta is normal in course and caliber. Adenopathy: Para-aortic lymph nodes remain the upper limits of normal in size. Pelvic viscera: The bladder, and pelvic viscera are unremarkable. Skeletal structures: No destructive osseous lesions are seen. IMPRESSION: 1. No acute intra-abdominal or pelvic findings 2. No evidence of bowel obstruction. No evidence of free air 3. No renal, ureteral, or bladder calculi identified 4. No evidence of acute appendicitis. No evidence of acute diverticulitis. Procedure Date: 01/04/2017 2:29 PM Procedure: Upper GI endoscopy Indications: Generalized abdominal pain Medicines: Propofol total dose 360 mg IV, Lidocaine 80 mg IV Complications: No immediate complications. Estimated Blood Loss: Estimated blood loss: none. Procedure: Pre-Anesthesia Assessment: - Prior to the procedure, a History and Physical was performed, and patient medications, allergies and sensitivities were reviewed. The patient's tolerance of previous anesthesia was reviewed. - The risks and benefits of the procedure and the sedation options and risks were discussed with the patient. All questions were answered and informed consent was obtained. After obtaining informed consent, the endoscope was passed under direct vision. Throughout the procedure, the patient's blood pressure, pulse, and oxygen saturations were monitored continuously. The scope was introduced through the mouth, and advanced to the second part of duodenum. The upper GI endoscopy was accomplished without difficulty. The patient tolerated the procedure well. Findings: The examined esophagus was normal. The entire examined stomach was normal. A few localized erosions without bleeding were found in the duodenal bulb. Impression: - Normal esophagus. - Normal stomach. - Duodenal erosions without bleeding. - No specimens collected. Recommendation: - Return patient to hospital [facility] for ongoing care. Procedure Date: 01/04/2017 2:34 PM Procedure: Colonoscopy Indications: Abdominal pain in the right upper quadrant, Crohn's disease of the colon Medicines: Propofol total dose 360 mg IV, Lidocaine 80 mg IV Complications: No immediate complications. Estimated Blood Loss: Estimated blood loss: none. Procedure: Pre-Anesthesia Assessment: - Prior to the procedure, a History and Physical was performed, and patient medications, allergies and sensitivities were reviewed. The patient's tolerance of previous anesthesia was reviewed. - The risks and benefits of the procedure and the sedation options and risks were discussed with the patient. All questions were answered and informed consent was obtained. After I obtained informed consent, the scope was passed under direct vision. Throughout the procedure, the patient's blood pressure, pulse, and oxygen saturations were monitored continuously. The scope was introduced through the anus and advanced to the terminal ileum. The colonoscopy was performed without difficulty. The patient tolerated the procedure well. The quality of the bowel preparation was good. Findings: Two localized non-bleeding aphthae were found at the ileocecal valve. No stigmata of recent bleeding were seen. The colon (entire examined portion) appeared normal. The terminal ileum appeared normal. Impression: - Aphtha at the ileocecal valve. - The entire examined colon is normal. - The examined portion of the ileum was normal. - No specimens collected. Recommendation: - Return patient to hospital [facility] for ongoing care. HEPATOBILIARY HIDA IMAGING CLINICAL HISTORY: 26 years-old Female presenting with RUQ abdominal pain, ultrasound negative, history of Crohn's colitis. TECHNIQUE: Dynamic imaging of the gallbladder was performed after administration of 5.5 mCi of technetium 99m Choletec. COMPARISON: CT from 01/03/2017. FINDINGS: The hepatobiliary scan shows normal radiotracer uptake of the liver and excretion into the biliary duct system. Radiotracer activity in the small bowel noted, and subsequently normal filling of the gallbladder. Reflux into the stomach also noted, normal. IMPRESSION: 1. No evidence of cholecystitis. Normal gallbladder. Consultations: Gastroenterology--Dr. Mcneil/Dr. Erwin Medication Reconciliation Continued Medications: Adalimumab (Humira) 20 Mg/0.4 Ml Kit 40 MG INJ [id number] Dicyclomine Hcl (Bentyl) Unknown Strength Cap 1 DOSE PO UD PRN for GI Upset, CAP Ergocalciferol (Vitamin D 94312 Unit) 50,000 Unit Cap 28508 UNITS PO WK Etonogestrel/Ethinyl Estradiol (Nuvaring) Mis 1 DOSE PV UD, #1 Ondansetron (Ondansetron HCl) 4 Mg Tab 4 MG PO TID PRN for Nausea or Vomiting, #30 Tramadol (Ultram) 50 Mg Tab 1 TABS PO Q6 PRN for Pain, #20 TAB Trazodone Hcl (Trazodone) 50 Mg Tab 50 MG PO HS PRN for Insomnia, #30 Discharge Exam Patient reports feeling well. She still reports some minimal pain in her RUQ but states this is much improved. She denies any nausea or vomiting. She is tolerating a regular diet well. The patient denies fevers, chills, sweats, chest pain, palpitations, claudication, cough, wheezing, shortness of breath, nausea, vomiting, dysuria, hematuria, urinary retention, paralysis, weakness, numbness and tingling. Review of Systems: Constitutional: No fever, No chills, No sweats Eyes: No worsening of vision, No eye pain, No diplopia ENT: No hearing loss, No sore throat, No trouble swallowing Respiratory: No cough, No wheezing, No shortness of breath Cardiovascular: No chest pain, No claudication, No palpitations Abdomen: + pain (mild, states this is about baseline), No nausea, No vomiting Musculoskeletal: No joint pain, No muscle pain, No calf pain Genitourinary - Female: No dysuria, No urinary retention, No hematuria Neurologic: No paralysis, No weakness, No numbness/tingling Integumentary: No rash, No itch, No color change Physical Exam: General Appearance: WD/WN, no apparent distress Eyes: normal inspection, PERRL, EOMI ENT: normal ENT inspection, hearing grossly normal, pharynx normal Neck: supple, no JVD, trachea midline Respiratory/Chest: lungs clear, normal breath sounds, no respiratory distress Cardiovascular: regular rate, rhythm, no gallop, no murmur Abdomen / GI: normal bowel sounds, soft, + tenderness (RUQ mildly TTP) Extremities: normal inspection, no calf tenderness, no pedal edema Neurologic/Psychiatric: alert, normal mood/affect, oriented x 3 Skin: normal color, warm/dry, no rash Hospital Course 26 y/o female with a history of Crohn's disease diagnosed 2011, controlled with Humira [id number]. Pt recently had gallbladder work up as an outpatient due to RUQ abdominal pain, nausea and vomiting. Ultrasound showed sludge without acute cholecystitis. Had been scheduled for outpatient HIDA next week but was told to come to ER by her PCP when she developed worsening pain and poor oral intake. CT abdomen/pelvis did not show acute abnormalities and not consistent with acute Crohn's flare. RUQ abdominal pain, N/V--stable/resolved -Admitted to med/surg -GI consulted, appreciate recs: EGD/colonoscopy done 01/04. Abdominal pain may be musculoskeletal. Apply moist heat and take Tylenol prn. Continue current regimen of Humira pending adalimumab level and anti-adalimumab antibodies. Discharge on low fat diet. Avoid ETOH. -EGD shows nonbleeding erosions on duodenal bulb consistent with mild erosive duodenitis. -Colonoscopy shows nonbleeding aphthous ulcers ileocecal valve -HIDA scan normal -Morphine 4 mg IV q6h prn pain -Zofran 4 mg IV q6h prn nausea -Resume Humira on discharge -Recommend low fat diet on discharge. Avoid ETOH and NSAIDs DVT prophylaxis -Hold chemical prophylaxis due to endoscopies -SCDs Code Status -Level I, FULL RESUSCITATION STATUS Total Time Spent: Greater than 30 minutes This includes examination of the patient, discharge planning, medication reconciliation, and communication with other providers. Discharge Instructions Please refer to the electronic Patient Visit Report (Discharge Instructions) for additional information. Additional Copies To Glenn Andrews M.D.
[2017-01-16] MEDS ORDERED: ZNTT/150 PO (09:06)
[2017-01-24] MEDS ORDERED: ACET-1256 PO (12:13)
[2017-02-01] MEDS ORDERED: TRAM-10 PO (14:56)
[2017-02-01] MEDS ORDERED: SERT25TA PO (14:56)
[2017-02-07] MEDS ORDERED: HYDR-5688 PO (06:23)
== END 2017-01-06 11:27 | disposition home or self-care (01) | DRG 386 ==
LOC: C.EDB 17:23 → C.MSN 20:27 → ENRESERV 20:46
PROVIDERS: ADMIT Internal Medicine; ATTEND Hospitalist
PROC: 0DJ08ZZ Inspection of Upper Intestinal Tract, Via Natural or Artificial Opening Endoscopic (ICD-10-PCS; principal; 2017-01-04 14:12)
PROC: 0DJD8ZZ Inspection of Lower Intestinal Tract, Via Natural or Artificial Opening Endoscopic (ICD-10-PCS; principal; 2017-01-04 14:12)
DX: K50.90 Crohn's disease, unspecified, without complications (principal); K63.3 Ulcer of intestine; K29.80 Duodenitis without bleeding; K29.70 Gastritis, unspecified, without bleeding; K83.9 Disease of biliary tract, unspecified; E86.0 Dehydration; R51 Headache; Z79.3 Long term (current) use of hormonal contraceptives; Z79.899 Other long term (current) drug therapy; Z79.891 Long term (current) use of opiate analgesic; Z82.49 Family history of ischemic heart disease and other diseases of the circulatory system

== ENCOUNTER → 2017-01-11 | Outpatient (CLI) | payer BC ==
[~2017-01-11] MED LIST changes: +ACET-1256 PO; +HYDR-5688 PO; +SERT25TA PO; +ZNTT/150 PO
[2017-01-11 12:55] LABS: CHOLESTEROL/HDL RATIO 2.8
[2017-01-11 13:44] LABS: ESTIMATED AVERAGE GLUCOSE 100 mg/dl; HA1C FLAG Normal (Normal)
[2017-01-14 16:48] LABS: IGA SERUM 171 mg/dL (81-463); TIS TRANS IGA 1 U/mL (<4)
== END | disposition home or self-care (01) ==
LOC: C.LABBFT 10:50
PROVIDERS: ATTEND Internal Medicine
DX: E55.9 Vitamin D deficiency, unspecified (principal); R73.9 Hyperglycemia, unspecified; Z13.220 Encounter for screening for lipoid disorders; R10.11 Right upper quadrant pain

== ENCOUNTER → 2017-01-18 | Outpatient (CLI) | payer BC ==
--- NOTE | 2017-01-18 13:37 | DIAGNOSTIC IMAGING REPORT ---
GASTRIC EMPTYING CLINICAL HISTORY: 26 years-old Female presenting with abdominal pain, right upper quadrant. TECHNIQUE: Following the oral administration of 1 mCi of technetium 99m sulfur colloid in egg sandwich and 8 ounces of water, static abdominal images are obtained anteriorly and posteriorly at 0 minutes, 1 hour, 2 hour, and 4 hour time intervals. Gastric emptying was calculated utilizing the geometric mean method. COMPARISON: 01/05/2017. FINDINGS: There is approximately 84% activity remaining at the 1 hour time interval, 45% remaining at the 2 hour time interval (normal is less than 60%), and 0% activity remaining at the 4 hour time interval (normal is less than 10%). IMPRESSION: Findings are consistent with normal gastric emptying. No evidence of gastroparesis. Electronically signed by: Kilo Jimnéez M.D. 01/18/2017 1:36 PM Dictated Date/Time: 01/18/2017 1:34 PM
== END | disposition home or self-care (01) ==
LOC: C.NUCL 07:58
PROVIDERS: ATTEND Internal Medicine
DX: R10.11 Right upper quadrant pain (principal)

== ENCOUNTER → 2017-01-19 | Outpatient (CLI) | payer BC ==
--- NOTE | 2017-01-19 10:02 | DIAGNOSTIC IMAGING REPORT ---
SMALL BOWEL STUDY CLINICAL HISTORY: Vomiting. Crohn's disease. Weight loss. COMPARISON STUDY: Abdomen and pelvis CT 01/03/2017. Small bowel follow-through 06/23/2015. FLUOROSCOPY TIME: 0.6 minutes. 11 images submitted. FINDINGS: Fire Assistant image shows no evidence for bowel obstruction. No renal calcifications. The patient swallowed barium without difficulty. Contrast reached the large bowel at 105 minutes. The majority of the small bowel normal in course and caliber. No evidence for bowel obstruction. Slight irregularity and narrowing at the distal terminal ileum immediately proximal to the ileocecal valve. This likely represents chronic inflammatory change/scarring. IMPRESSION: 1. Slight irregularity and narrowing at the distal terminal ileum immediately proximal to the ileocecal valve. This favors chronic inflammatory change/scarring. The remaining small bowel is normal in course and caliber. 2. No evidence for bowel obstruction. Electronically signed by: Rafa Wheeler M.D. 01/19/2017 10:01 AM Dictated Date/Time: 01/19/2017 9:55 AM
== END | disposition home or self-care (01) ==
LOC: C.RAD 07:25
PROVIDERS: ATTEND Internal Medicine Gastroenterology
DX: K50.80 Crohn's disease of both small and large intestine without complications (principal); F41.9 Anxiety disorder, unspecified

== ENCOUNTER → 2017-01-24 | Day surgery (SDC) | payer BC ==
[2017-01-16 09:07] VITALS: BMI 27.0
[~2017-01-24] VITALS: Ht 162.6 cm; Wt 71.4 kg
[2017-01-24 12:00] VITALS: BP 138/83; PULSE 83; TEMP 36.8; O2SAT 99
[2017-01-24 12:02] VITALS: Ht 162.6 cm; Wt 71.4 kg
--- NOTE | 2017-01-25 14:48 | OPERATIVE REPORT ---
DATE OF OPERATION: 01/24/2017 DATE OF PROCEDURE: 01/24/2017. PROCEDURE: Hydrogen breath test for small bowel bacterial overgrowth. INDICATIONS: The patient has abdominal pain and nausea. PROCEDURE: The patient ingested 7 grams of lactulose and hydrogen and carbon dioxide exhaled volumes concentrations were recorded at 20 minute intervals for 3 hours. The patient's baseline hydrogen was 2 with a carbon dioxide of 3 and at baseline, the patient was experiencing nausea and this persisted throughout the test. After 1 hour, the patient reported experiencing gas and after 80 minutes additional some pain. Her hydrogen levels remained 10 or below for the first 100 minutes and then started to increase to 31 after 160 minutes and then dropped to 28 after 180 minutes. The CO2 levels remained below 3.4 the entire time. IMPRESSION: The patient has a rise in hydrogen after 60 minutes indicating a weak correlation to small bowel bacterial overgrowth. There appears to be somewhat of a delay in getting the levels elevated suggesting a slow transit time in the bowel. I attest to the content of the Intraoperative Record and any orders documented therein. Any exception s are noted below.
== END | disposition home or self-care (01) ==
LOC: C.GI 11:24
PROVIDERS: ATTEND Internal Medicine Gastroenterology
DX: R10.9 Unspecified abdominal pain (principal); K50.80 Crohn's disease of both small and large intestine without complications; K50.90 Crohn's disease, unspecified, without complications; F41.9 Anxiety disorder, unspecified; Z79.899 Other long term (current) drug therapy

== ENCOUNTER 2017-02-06 05:18 | Observation (INO) | payer BC ==
[2017-02-01 14:50] VITALS: BMI 26.0
[~2017-02-06] VITALS: Ht 162.6 cm; Wt 68.1 kg
[2017-02-06] VITALS (8 sets, daily range): BP systolic 106–134; BP diastolic 66–81; PULSE 67–91; TEMP 36.8–37.4; O2SAT 96–99; Ht 162.6 cm; Wt 68.1 kg
[~2017-02-06 05:18] MED LIST changes: -HYDR-5688 PO
[2017-02-06] MEDS ORDERED: LACTATED RINGER'S 1000ML 1,000 ML IV SCH (06:00)
[2017-02-06] MEDS ORDERED: CEFUROXIME IV 1,500 MG in DEXTROSE 5% 100ML IV SCH (06:00)
[2017-02-06] MEDS ORDERED: NEOSTIGMINE METHYLSULFATE 5 MG/5 ML SYR ONE (06:36)
[2017-02-06] MEDS ORDERED: ROCURONIUM BROMIDE 10 MG/ML 5 ML VIAL IV ONE (06:36)
[2017-02-06] MEDS ORDERED: GLYCOPYRROLATE INJ 0.2 MG/ML VIAL ONE ×2 (06:36→07:52)
[2017-02-06] MEDS ORDERED: DEXAMETHASONE SOD INJ 4 MG/ML VIAL ONE (06:36)
[2017-02-06] MEDS ORDERED: FENTANYL CITRATE INJ 50 MCG/1 ML 2 ML VIAL ONE ×3 (06:36→08:35)
[2017-02-06] MEDS ORDERED: LIDOCAINE HCL 2% 2 ML VIAL (20MG/ML) ONE (06:36)
[2017-02-06] MEDS ORDERED: MIDAZOLAM HCL 1 MG/ML 2ML VIAL ONE (06:36)
[2017-02-06] MEDS ORDERED: PROPOFOL IV EMULSION 10 MG/ML 20 ML VIAL IV ONE (06:36)
[2017-02-06] MEDS ORDERED: ONDANSETRON INJ 2 MG/ML 2 ML VIAL ONE ×2 (06:36→07:52)
[2017-02-06] MEDS ORDERED: BUPIVACAINE 0.5 % 5 MG/1 ML MPF 30ML VIAL ONE (06:45)
[2017-02-06] MEDS ORDERED: CONRAY 60% 50 ML VIAL ONE (06:45)
--- NOTE | 2017-02-06 06:45 | History & Physical Bridge Note ---
H&P Re-Evaluation Bridge Note: I have examined the patient, reviewed the History & Physical and in the interval since the performance of the History & Physical I have noted the following changes of clinical significance: No changes noted
[2017-02-06] MEDS ORDERED: ATROPINE SULFATE 0.1 MG/ML 5ML SYR IV PRN (07:30)
[2017-02-06] MEDS ORDERED: MEPERIDINE HCL 25 MG/ML CARP IV PRN (07:30)
[2017-02-06] MEDS ORDERED: PHENYLEPHRINE 100MCG/ML 5ML SYR IV PRN (07:30)
[2017-02-06] MEDS ORDERED: EpHEDrine SULFATE INJ 50 MG/ML AMP IV PRN (07:30)
[2017-02-06] MEDS ORDERED: FLUMAZENIL 0.1 MG/1 ML 10 ML VIAL IV PRN (07:30)
[2017-02-06] MEDS ORDERED: NALOXONE HCL 0.4 MG/1 ML VIAL/CARP IV PRN (07:30)
[2017-02-06] MEDS ORDERED: FENTANYL CITRATE INJ 50 MCG/1 ML 2 ML VIAL IV PRN (07:30)
[2017-02-06] MEDS ORDERED: ONDANSETRON INJ 2 MG/ML 2 ML VIAL IV PRN ×2 (07:30→08:15)
[2017-02-06] MEDS ORDERED: LABETALOL HCL IV 5 MG/ML 20ML IV PRN (07:30)
--- NOTE | 2017-02-06 08:02 | [facility] Operative Report ---
Operative Report Operative Date Feb 06, 2017. Pre-Operative Diagnosis Right upper quadrant pain, biliary colic Post-Operative Diagnosis Right upper quadrant pain, biliary colic chronic cholecystitis, adhesions Procedure(s) Performed Laparoscopic Cholecystectomy Surgeon Dr. Zhang Cotton Washer Surgeon(s) Kali Long PA-C Findings adhesions to gd and at portahepatis, thickened cystic duct Specimens A: gallbladder and contents Anesthesia gen Complication(s) None Disposition Recovery Room / PACU I attest to the content of the Intraoperative Record and any orders documented therein. Any exceptions are noted below.
[2017-02-06] MEDS ORDERED: IV FLUIDS COMPLETED PRN (08:15)
[2017-02-06] MEDS ORDERED: MoRPHine SULFATE 4 MG/ML 1 ML CARP\\VIAL IV PRN (08:15)
[2017-02-06] MEDS ORDERED: PROMETHAZINE HCL INJ 25 MG in SODIUM CHLORIDE 0.9% 50ML 50 ML IV PRN (08:15)
[2017-02-06] MEDS ORDERED: MoRPHine SULFATE 2 MG/ML CARP IV PRN (08:15)
--- NOTE | 2017-02-06 08:29 | OPERATIVE REPORT ---
DATE OF OPERATION: 02/06/2017 NAME OF OPERATION: Laparoscopic cholecystectomy. PREOPERATIVE DIAGNOSIS: Biliary colic. POSTOPERATIVE DIAGNOSIS: Same with chronic cholecystitis and adhesions. STAFF SURGEON: Dr. Zhang. GARAGE WORKER: Richard Carlos PA-C. ANESTHESIA: General. FINDINGS: Chronic dense adhesions to the gallbladder with cystic duct scarring and evidence of chronic cholecystitis. DESCRIPTION OF PROCEDURE: The patient was brought in the operating room and placed on the operating table in supine position. Her abdomen was prepped and draped in usual fashion. Pneumatic stockings and orogastric tube were placed. Using 0.5% plain Marcaine, all incisions were anesthetized, incision made just above the umbilicus, carrying dissection down, placing a Veress needle through the peritoneum producing a pneumoperitoneum and then placing an 11 mm port at this level. The scope was passed and then under visualization, three 5 mm ports were placed, 1 cephalad and 2 laterally. The gallbladder was grasped and retracted. There were adhesions to the gallbladder indicating chronic inflammation. These were taken down sharply and then bluntly at the yesi hepatis identifying a scarred cystic duct which thickening and evidence of chronic cholecystitis. Cystic duct was identified, clipped and transected and the cystic artery identified, clipped and transected. The gallbladder did have inflammation of a chronic nature in the posterior wall. It was dissected away from the liver in the usual fashion, placed into an Endobag. After appropriate hemostasis and irrigation, the Endobag was removed through the umbilical site and then the fascia at the umbilicus closed using interrupted 0 Vicryl suture. Skin reapproximated at all levels using subcuticular 4-0 Monocryl and Dermabond. I attest to the content of the Intraoperative Record and any orders documented therein. Any exception s are noted below.
[2017-02-06] MEDS ORDERED: PROMETHAZINE HCL INJ 25 MG in SODIUM CHLORIDE 0.9% 50ML 50 ML IV SCH (08:45)
--- NOTE | 2017-02-06 09:11 | Anesthesiology Progress Note ---
Anesthesia Post Op Note Date & Time Feb 06, 2017 at 09:11 Vital Signs Pain Intensity: 2 Vital Signs Past 12 Hours Date Time Temp Pulse Resp B/P (MAP) Pulse Ox O2 Delivery O2 Flow Rate FiO2 02/06/17 08:55 80 21 132/73 97 Room Air 02/06/17 08:45 84 19 131/79 97 Room Air 02/06/17 08:35 89 22 133/82 98 Oxymask 10 02/06/17 08:25 77 19 133/81 100 Oxymask 10 02/06/17 08:14 36.2 103 14 141/86 100 Oxymask 10 02/06/17 05:38 36.9 72 18 134/81 (98) 98 Room Air Notes Mental Status: alert / awake / arousable, participated in evaluation Pt Amnestic to Procedure: Yes Nausea / Vomiting: adequately controlled, improving with treatment Pain: adequately controlled Airway Patency, RR, SpO2: stable & adequate BP & HR: stable & adequate Hydration State: stable & adequate Anesthetic Complications: no major complications apparent
[2017-02-06] MEDS ORDERED: ONDANSETRON INJ 2 MG/ML 2 ML VIAL IV SCH (09:40)
[2017-02-06] MEDS ORDERED: PROMETHAZINE HCL INJ 12.5 MG in SODIUM CHLORIDE 0.9% 50ML 50 ML IV PRN (10:15)
[2017-02-06] MEDS: LACTATED RINGER'S 1000ML 1,000 ML IV SCH (10:49)
[2017-02-06] MEDS ORDERED: TRAZODONE HCL 50 MG TAB PO PRN (11:30)
[2017-02-06] MEDS: HYDROCODONE/ACETAMOPHEN 5/325MG TAB PO PRN ×4 (11:36→23:46)
--- NOTE | 2017-02-06 11:37 | Medical Consult ---
Consultation Date of Consultation: Feb 06, 2017. Attending Physician: Rob Zhang M.D. Reason for Consultation: Medical management History of Present Illness This is a 26 y/o female with a history of Crohn's disease, anxiety and depression, migraines, GERD, and insomnia who presents s/p smith roque with Dr. Zhang on 02/06 for medical management. Patient complains of 7/10 sharp pain in her abdomen and lower back that is worse with movement. The pain is the worst in the RUQ. The patient also complains of nausea but denies vomiting. She has not yet eaten postoperatively. She was able to void postoperatively. She denies passing any gas or having a bowel movement. The patient denies fevers, chills, sweats, chest pain, palpitations, claudication, cough, wheezing, shortness of breath, vomiting, dysuria, hematuria, urinary retention, paralysis , weakness, numbness and tingling. Past Medical/Surgical History Medical Problems: (1) Concussion Status: Acute (2) Crohn disease Status: Acute (3) Dehydration Status: Acute (4) Diffuse abdominal pain Status: Acute (5) Failure of outpatient treatment Status: Acute (6) Gallbladder sludge Status: Acute (7) Vomiting Status: Acute Family History Crohn's disease Hypertension Stroke Social History Smoking Status: Never Smoker Smokeless Tobacco Use: No Alcohol Use: none Drug Use: none Marital Status: in relationship Housing Status: lives with significant other (with boyfriend) Occupation Status: employed Allergies Coded Allergies: Hydromorphone (Verified Allergy, Intermediate, rash, itching, tongue swelling, 02/06/17) Sulfa Antibiotics (Verified Allergy, Intermediate, RASH, 02/06/17) Meloxicam (Verified Allergy, Unknown, UNKNOWN, 02/06/17) Current Inpatient Medications Current Inpatient Medications Medications (Trade) Dose Ordered Sig/Júnior Route Start Time Stop Time Status Last Admin Dose Admin Cefuroxime Sodium 1500 mg/Dextrose 115 ml @ 230 mls/hr PREOP IV 02/06/17 06:00 02/07/17 05:59 02/06/17 07:04 230 MLS/HR Lactated Ringer's 1,000 ml @ 15 mls/hr Q24H IV 02/06/17 06:00 02/07/17 05:59 02/06/17 05:57 15 MLS/HR Fentanyl Citrate (Fentanyl Inj) 25 mcg Q5M PRN IV 02/06/17 07:30 02/06/17 12:30 Naloxone HCl (Narcan Inj) 0.2 mg Q2M PRN IV 02/06/17 07:30 02/06/17 12:30 Meperidine HCl (Demerol Inj) 12.5 mg Q5M PRN IV 02/06/17 07:30 02/06/17 12:30 Flumazenil (Romazicon Inj) 0.2 mg Q2M PRN IV 02/06/17 07:30 02/06/17 12:30 Labetalol HCl (Normodyne IV) 5 mg Q5M PRN IV 02/06/17 07:30 02/06/17 12:30 Ephedrine Sulfate (EpHEDrine SULFATE INJ) 5 mg Q5M PRN IV 02/06/17 07:30 02/06/17 12:30 Atropine Sulfate (Atropine Sulfate 0.1MG/Ml Inj) 0.5 mg Q1M PRN IV 02/06/17 07:30 02/06/17 12:30 Phenylephrine HCl (Tramaine-Synephrine 500MCG/5ML Syr) 100 mcg Q5M PRN IV 02/06/17 07:30 02/06/17 12:30 Lactated Ringer's 1,000 ml @ 50 mls/hr Q20H IV 02/06/17 10:15 03/08/17 10:14 02/06/17 10:49 50 MLS/HR Cefuroxime Sodium 1500 mg/Dextrose 115 ml @ 200 mls/hr Q8@0000,0800,1600 IV 02/06/17 16:00 02/07/17 15:59 Morphine Sulfate (MoRPHine SULFATE INJ) 2 mg Q3H PRN IV 02/06/17 08:15 02/20/17 08:14 Morphine Sulfate (MoRPHine SULFATE INJ) 4 mg Q3H PRN IV 02/06/17 08:15 02/20/17 08:14 Acetaminophen/ Hydrocodone Bitart ([place] 5/325 Tab) 1 tab Q4 PRN PO 02/06/17 08:15 02/20/17 08:14 Acetaminophen/ Hydrocodone Bitart ([place] 5/325 Tab) 2 tab Q4 PRN PO 02/06/17 08:15 02/20/17 08:14 Promethazine HCl 25 mg/Sodium Chloride 51 ml @ 204 mls/hr Q6H PRN IV 02/06/17 08:15 03/08/17 08:14 Ondansetron HCl (Zofran Inj) 4 mg Q6H PRN IV 02/06/17 08:15 03/08/17 08:14 Miscellaneous (Iv Fluids Completed) 1 ea PRN PRN N/A 02/06/17 08:15 02/06/18 08:14 Promethazine HCl 25 mg/Sodium Chloride 51 ml @ 204 mls/hr TODAY@0845 IV 02/06/17 08:45 02/06/17 13:45 02/06/17 08:40 204 MLS/HR Ondansetron HCl (Zofran Inj) 4 mg TODAY@0940 IV 02/06/17 09:40 02/06/17 14:40 Promethazine HCl 12.5 mg/Sodium Chloride 50.5 ml @ 204 mls/hr Q6H PRN IV 02/06/17 10:15 03/08/17 10:14 Review of Systems See HPI for pertinent positives and negatives. All other systems reviewed and negative. Physical Exam Date Time Temp Pulse Resp B/P (MAP) Pulse Ox O2 Delivery O2 Flow Rate FiO2 02/06/17 10:53 80 20 118/76 (90) 98 Room Air 02/06/17 10:21 83 19 118/74 (89) 97 Room Air 02/06/17 09:30 81 18 138/85 98 Room Air 02/06/17 09:15 79 19 138/86 97 Room Air 02/06/17 09:05 36.0 81 19 138/81 98 Room Air 02/06/17 08:55 80 21 132/73 97 Room Air 02/06/17 08:45 84 19 131/79 97 Room Air 02/06/17 08:35 89 22 133/82 98 Oxymask 10 02/06/17 08:25 77 19 133/81 100 Oxymask 10 02/06/17 08:14 36.2 103 14 141/86 100 Oxymask 10 02/06/17 05:38 36.9 72 18 134/81 (98) 98 Room Air General appearance: Well-developed, well-nourished, no apparent distress Head: Normocephalic, atraumatic Eyes: Normal inspection, PERRL, EOMI ENT: Normal ENT inspection, hearing grossly normal, pharynx normal Neck: Supple, no JVD, trachea midline Respiratory/Chest: Lungs clear to auscultation, normal breath sounds, no respiratory distress Cardiovascular: Regular rate & rhythm, no gallop, no murmur Abdomen/GI: +Lap roque incisions closed with Dermabond. Diffusely tender, most marked in RUQ. Normal bowel sounds, soft Extremities/Musculoskeletal: Normal inspection, no calf tenderness, no pedal edema Neurological/Psych: Alert, normal mood/affect, oriented x 3 Skin: Normal color, warm/dry, no rash Laboratory Results Last 24 Hours Test 02/06/17 05:37 02/06/17 11:20 Assessment & Plan 26 y/o female with a history of Crohn's disease, anxiety and depression, migraines, GERD and insomnia who presents s/p lap roque with Dr. Zhang on 02/06 for medical management. S/p lap roque--stable, POD #0 -Pain management, DVT prophylaxis per primary team -Zofran 4 mg IV q6h prn nausea Crohn's disease -Pt takes Humira 40 mg SC weekly on Sundays, did not take yesterday prior to surgery. She will be in contact with her prescribing physician about when to resume postop Anxiety and depression--stable -Continue Zoloft 25 mg PO qd Migraines -Tramadol on hold GERD -Continue Zantac 150 mg PO BID Insomnia -Continue trazodone 50 mg PO qhs prn Code Status -Level I, FULL RESUSCITATION STATUS Thank you for this consultation. We will continue to follow. PA Physician Supervision Note: I interviewed and examined the patient. Discussed with Jeannie CRISTINA and agree with findings and plan as documented in the note. Any exceptions or clarifications are listed here: None Patient status post laparoscopic cholecystectomy. She suffers from Crohn's disease on Humira. She typically takes her dose on Monday and hold her dose yesterday. Otherwise her depression and anxiety are managed by Zoloft. She is slightly nauseous post procedure with mild abdominal pain Vital signs are stable Her abdomen is with hyperactive bowel sounds minor tenderness in the mid to right upper quadrant Patient's managed postoperatively by Dr. Wolff recommending holding Merrem contacting her outpatient inventory and pricing associate to determine if she should have her dose to Monday or not otherwise continue all other home medications Documented By: Tex Lance
[2017-02-06 11:40] LABS: BASO % 0.1 %; BASO ABS # 0.01 K/uL (0-0.2); COMPLETE YES; EOS % 0.1 %; HEMATOCRIT 36.9 % (37-47); IG% 0.2 %; LYMPH ABS # 0.76 K/uL (1.2-3.4); MEAN CORPUSCULAR HEMOGLOBIN 30.2 pg (25-34); MEAN CORPUSCULAR HGB CONC 34.7 g/dl (32-36); MEAN PLATELET VOLUME 10.1 fL (7.4-10.4); MONO % 0.3 %; NEUT % 92.3 %; PLATELET COUNT 219 K/uL (130-400); RED BLOOD COUNT 4.24 M/uL (4.2-5.4)
[2017-02-06 12:04] LABS: BUN/CREATININE RATIO 8.3 (10-20); CALCIUM 8.6 mg/dl (8.5-10.1); CREATININE 0.91 mg/dl (0.60-1.20); POTASSIUM 3.5 mmol/L (3.5-5.1)
[2017-02-06] MEDS: CEFUROXIME IV 1,500 MG in DEXTROSE 5% 100ML 100 ML IV SCH ×2 (17:16→23:45)
[2017-02-06] MEDS ORDERED: SERTRALINE HCL 50 MG TAB PO SCH (21:00)
[2017-02-06] MEDS: RANITIDINE HCL 150 MG TAB PO SCH (21:51)
[2017-02-07 04:06] VITALS: BP 115/72; PULSE 79; TEMP 36.3; O2SAT 97
[2017-02-07] MEDS: LACTATED RINGER'S 1000ML 1,000 ML IV SCH (05:45)
[2017-02-07] MEDS: HYDROCODONE/ACETAMOPHEN 5/325MG TAB PO PRN ×2 (05:50→07:08)
[2017-02-07 06:16] LABS: HEMATOCRIT 35.1 % (37-47); MEAN CELL VOLUME 88.9 fL (80-100); MEAN CORPUSCULAR HEMOGLOBIN 30.6 pg (25-34); MEAN CORPUSCULAR HGB CONC 34.5 g/dl (32-36); MEAN PLATELET VOLUME 10.7 fL (7.4-10.4); PLATELET COUNT 226 K/uL (130-400); RED BLOOD COUNT 3.95 M/uL (4.2-5.4); WHITE BLOOD COUNT 11.49 K/uL (4.8-10.8)
[2017-02-07] MEDS ORDERED: HYDR-5688 PO (06:23)
--- NOTE | 2017-02-07 06:25 | Discharge Instructions ---
Discharge Instructions Date of Service Feb 07, 2017. Admission Reason for Admission: Biliary Colic Discharge Discharge Diagnosis / Problem: chronic cholecystitis Discharge Goals Goal(s): Decrease discomfort, Improve function, Improve disease control Activity Recommendations Activity Limitations: as noted below Lifting Limitations: no more than 25 pounds Exercise/Sports Limitations: until after follow-up appointment May Resume Sexual Activity: when tolerated Shower/Bathe: no limitations (may shower, no bath for one week) Driving or Machine Use: resume 3 days after discharge SPECIAL CARE INSTRUCTIONS: * Cover incisions and change daily for comfort/drainage. may leave uncovered with dermabond * May use ibuprofen for pain as tolerated. * Expect some swelling and bruising. Call your doctor if: * Temperature above 101 degrees * Pain not relieved by pain medicine ordered * There is increased drainage or redness from any incision * You have any unanswered questions or concerns [phone]. FOLLOW UP VISIT: If not already scheduled, please call the office for a follow-up visit. for scheduled appointment OFFICE PHONE NUMBER: Dr. Zhang Office . Current Hospital Diet Patient's current hospital diet: Regular Diet Discharge Diet Recommended Diet: Regular Diet Procedures Procedures Performed: Laparoscopic Cholecystectomy Pending Studies Studies pending at discharge: no Laboratory Results Hemoglobin A1c Test 01/11/17 11:01 Range/Units Estimated Average Glucose 100 mg/dl Hemoglobin A1c 5.1 4.5-5.6 % Lipid Panel Test 01/11/17 11:01 Range/Units Triglycerides Level 119 0-150 mg/dl Cholesterol Level 139 0-200 mg/dl HDL Cholesterol 49 mg/dl Cholesterol/HDL Ratio 2.8 LDL Cholesterol, Calculated 66 mg/dl Medical Emergencies . Who to Call and When: Medical Emergencies: If at any time you feel your situation is an emergency, please call 911 immediately. . Non-Emergent Contact Non-Emergency issues call your: Primary Care Provider, Surgeon . "Provider Documentation" section prepared by Rob Zhang. . VTE Core Measure Inpt VTE Proph given/why not?: SCD's
[2017-02-07 06:53] LABS: BUN/CREATININE RATIO 10.5 (10-20); CALCIUM 8.7 mg/dl (8.5-10.1); CREATININE 0.86 mg/dl (0.60-1.20); POTASSIUM 3.8 mmol/L (3.5-5.1)
[2017-02-07 07:46] VITALS: BP 124/80; PULSE 87; TEMP 37; O2SAT 97
[2017-02-07 07:50] VITALS: BP 124/80; PULSE 87; TEMP 37; O2SAT 97
[2017-02-07] MEDS: RANITIDINE HCL 150 MG TAB PO SCH (08:22)
[2017-02-07 08:44] VITALS: O2SAT 97
--- NOTE | 2017-02-07 18:15 | Medical Consult ---
Consultation Note Date of Service Feb 07, 2017. Consultation Note 1815 - time Patient was discharged by the surgical team prior to my bedside assessment. However, from a medical standpoint, she appeared stable based on acceptable vital signs and stable lab studies from this AM. Moi Samuel MD
--- NOTE | 2017-02-08 12:21 | DISCHARGE SUMMARY ---
PRIMARY DISCHARGE DIAGNOSIS: Biliary colic with chronic cholecystitis. SECONDARY DISCHARGE DIAGNOSES: 1. Crohn's disease. 2. Migraines. 3. Gastroesophageal reflux disease. 4. Insomnia. 5. Anxiety and depression. PROCEDURE PERFORMED: Laparoscopic cholecystectomy. CONSULTATIONS: [facility] hospitalist to assist in medical management. HOSPITAL COURSE: The patient is a 26-year-old female with biliary colic admitted through same day and taken to the operating room for laparoscopic cholecystectomy. The procedure was well tolerated. She was transferred to the surgical floor. There were intraoperative findings of chronic cholecystitis and the final pathology confirmed this. She did well overnight. The medical service was consulted routinely. On postoperative day 1, she was tolerating diet and oral analgesics. She was stable for discharge. DISCHARGE INSTRUCTIONS: Discharge home. Follow up with Dr. Zhang in 2 weeks. DISCHARGE MEDICATIONS: [place] 1-2 tablets every 6 hours as needed. Continue her home medications Humira 40 mg weekly, Bentyl 10 mg as needed, vitamin D 50,000 units weekly, Zofran 4 mg as needed, Zantac 150 mg b.i.d., Zoloft 25 mg daily, Ultram 50 mg daily, trazodone 50 mg at bedtime. MTDD
== END 2017-02-07 09:15 | disposition home or self-care (01) ==
LOC: C.ACU 05:18 → C.MSW 08:07 → ENRESERV 09:00
PROVIDERS: ADMIT Surgery; ATTEND Surgery
DX: K81.1 Chronic cholecystitis (principal); K80.50 Calculus of bile duct without cholangitis or cholecystitis without obstruction; K82.8 Other specified diseases of gallbladder; K50.90 Crohn's disease, unspecified, without complications; F41.9 Anxiety disorder, unspecified; F32.9 Major depressive disorder, single episode, unspecified; K21.9 Gastro-esophageal reflux disease without esophagitis; G47.00 Insomnia, unspecified; Z83.79 Family history of other diseases of the digestive system; Z82.49 Family history of ischemic heart disease and other diseases of the circulatory system; Z82.3 Family history of stroke

== ENCOUNTER → 2017-03-21 | Outpatient (CLI) | payer BC ==
[~2017-03-21] MED LIST changes: +HYDR-5688 PO
== END | disposition home or self-care (01) ==
LOC: C.PAPS 10:08
PROVIDERS: ATTEND Obstetrics & Gynecology
DX: Z01.419 Encounter for gynecological examination (general) (routine) without abnormal findings (principal); Z11.51 Encounter for screening for human papillomavirus (HPV)

== ENCOUNTER → 2017-03-21 | Outpatient (CLI) | payer BC ==
[2017-03-24 02:55] LABS: CHLAMYDIA TRACH RNA*** NOT DETECTED (NOT DETECTED); GC (NEIS GONORRHOEAE)RNA** NOT DETECTED (NOT DETECTED)
== END | disposition home or self-care (01) ==
LOC: C.LABSPEC 17:24
PROVIDERS: ATTEND Obstetrics & Gynecology
DX: Z01.419 Encounter for gynecological examination (general) (routine) without abnormal findings (principal)

== ENCOUNTER → 2017-07-05 | Outpatient (CLI) | payer BC ==
[~2017-07-05] MED LIST changes: -ERGO1CAP41 PO; +ERGO500011 PO
--- NOTE | 2017-07-05 18:59 | DIAGNOSTIC IMAGING REPORT ---
MRI OF THE LEFT ANKLE WITHOUT IV CONTRAST CLINICAL HISTORY: Medial ankle pain. COMPARISON STUDY: Radiographs of the left foot and ankle dated 06/22/2014. TECHNIQUE: MRI of the left ankle was performed utilizing various T1 and T2-weighted sequences in the axial, sagittal, and coronal planes. IV contrast was not administered for this examination. Note that interpretation is suboptimal without current plain film correlate. FINDINGS: There is significant marrow edema identified within the medial aspect of the navicular as well as an os naviculare. The appearance suggests os naviculare syndrome. There is overlying soft tissue edema. No MRI evidence of fracture is seen. The ankle mortise is intact. There is no evidence of osteochondral defect involving the talar dome. An os trigonum is incidentally noted. Minimal marrow edema is suggested at the junction of the os trigonum and the talus. Trace joint fluid is observed. The anterior, posterior, and peroneal tendons are intact. The Achilles tendon is normal in morphology and signal intensity. There is evidence of age indeterminant and likely chronic rupture of the anterior tibiofibular as well as the anterior talofibular ligaments. The deltoid and spring ligaments are intact as imaged. There is maintenance of normal fat within the sinus tarsi. IMPRESSION: 1. There is significant marrow edema identified within the medial aspect of the navicular bone as well as an os naviculare. Mild overlying soft tissue edema is noted. The appearance suggests os naviculare syndrome. Clinical correlation will be required. 2. There is no MRI evidence of acute fracture. 3. The regional tendons appear maintained. 4. An os trigonum is incidentally noted. Minimal edema is suggested involving the os trigonum and the posterior talus at their junction. Clinical correlation will be required. 5. There is evidence of age indeterminant and likely chronic tearing involving the anterior tibiofibular as well as anterior talofibular ligaments. Dictated: 07/05/2017 5:29 PM Transcribed: 07/05/2017 6:58 PM Deidre Electronically signed by: Pan Conrad M.D. 07/05/2017 6:59 PM Dictated Date/Time: 07/05/2017 5:29 PM
== END | disposition home or self-care (01) ==
LOC: C.MRIBC 16:31
PROVIDERS: ATTEND Orthopaedic Surgery
DX: M25.572 Pain in left ankle and joints of left foot (principal)

== ENCOUNTER → 2017-08-25 | Outpatient (CLI) | payer BC ==
[~2017-08-25] MED LIST changes: -HYDR-5688 PO; +RANI150T85 PO; -ZNTT/150 PO
== END | disposition home or self-care (01) ==
LOC: C.LAB 17:57
PROVIDERS: ATTEND Internal Medicine
DX: E55.9 Vitamin D deficiency, unspecified (principal)

== ENCOUNTER → 2017-09-14 | Outpatient (CLI) | payer BC ==
[~2017-09-14] MED LIST changes: +GADAVIST IV PRN
--- NOTE | 2017-09-14 12:22 | DIAGNOSTIC IMAGING REPORT ---
LOWER EXT JOINT COMBO CLINICAL HISTORY: LT ANKLE BONE SWELLING,PAIN,COMPARE TO 06/2017 MRI pain. Trauma. TECHNIQUE: Multiaxial MRI acquisition COMPARISON STUDY: 07/05/2007 FINDINGS: The bulk of the findings on the prior study appear to be similar. The bone contusion of the medial navicular as well as the os navicularis appear mildly improved. Ankle mortise remains aligned anatomically. There continues be a chronic partial tear of the anterior tibial fibular and anterior talofibular ligaments. All remaining ligamentous and tendinous structures appear intact. There are findings of moderate tendinopathy involving the posterior tibial tendon tendon itself appears to be intact. There is small fluid surrounding the ligamentous sheath. Structures the plantar fascia appear unremarkable. Subtalar joint is intact. Interosseous ligament shows no abnormal disruption. Postcontrast images are considered negative for an enhancing lesion. IMPRESSION: 1. Similar to mildly improved exam compared to the prior study. 2. The bone contusion of the navicular and os navicularis are moderately improved. 3. Moderate posterior tibial tendinitis/tendinopathy with no evidence for rupture. 4. Chronic partial tears of the medial collateral ligament complex described above and previously. 5. No abnormal postcontrast enhancement. The above report was generated using voice recognition software. It may contain grammatical, syntax or spelling errors. Electronically signed by: Alvarado Duggan M.D. 09/14/2017 12:21 PM Dictated Date/Time: 09/14/2017 12:07 PM
== END | disposition home or self-care (01) ==
LOC: C.MRI 09:12
PROVIDERS: ATTEND Podiatrist Primary Podiatric Medicine
DX: M25.572 Pain in left ankle and joints of left foot (principal); M77.9 Enthesopathy, unspecified

== ENCOUNTER → 2017-10-02 | Outpatient (CLI) | payer BC ==
[~2017-10-02] MED LIST changes: +CLB100 PO; -GADAVIST IV PRN; +MULT-506 PO
== END | disposition home or self-care (01) ==
LOC: C.LAB 16:10
PROVIDERS: ATTEND Podiatrist Foot & Ankle Surgery
DX: Z01.812 Encounter for preprocedural laboratory examination (principal)

== ENCOUNTER → 2017-10-03 | Day surgery (SDC) | payer BC ==
[2017-10-02 15:33] VITALS: BMI 27.0
--- NOTE | 2017-10-02 15:47 | HISTORY & PHYSICAL EXAMINATION ---
DATE OF ADMISSION: 10/03/2017 Preoperative History and Physical. HISTORY OF PRESENT ILLNESS: [id number]old female presents for preoperative evaluation. Pain is located in the left foot and ankle. Severity of the condition is graded as a 9 on 10 point scale on the left, gradually worsening over time and notes the pain is quite severe. She notes increase significantly in pain last week due to standing. Patient was sent to me by Dr. Vyas for evaluation of foot pain and possible surgical intervention. Initially her surgery was scheduled for November; however, due to the severe pain, she would like to move the surgery up. Pain is described as burning pain, sharp, tender and sore. Condition was first noted several months ago. She denies any recent exposure, precipitating event or history of this condition. Associated signs and symptoms include numbness, swelling and tingling. Past treatments have included a knee walker, nonsteroidals, x-rays, CAM walker, oral medication and rest. Patient has had conservative treatment for over 2 years since the fall of [address] Chapa and Dr[address] Vyas. She notes she has gained over 15 pounds over the past 6 months due to foot pain and ankle pain and an inability to exercise. Patient was referred to our office by Dr. Vyas for surgical intervention due to the nature and severity of discomfort, she is requesting surgical intervention. PAST SURGICAL HISTORY: Gallbladder removal, tonsillectomy, wisdom teeth removal. PAST MEDICAL HISTORY: Traumatic brain injury, Crohn's disease, migraines, gallbladder disease, anxiety disorder. MEDICATIONS: Multivitamins, NuvaRing, Ranitidine, Vimovo, and sertraline. ALLERGIES: SULFA DRUGS. FAMILY HISTORY: Gastrointestinal problems, stroke and thyroid disease. SOCIAL HISTORY: Patient admits to alcohol use, drinking described as social. REVIEW OF SYSTEMS: Unremarkable except chief complaint. PHYSICAL EXAMINATION: VITAL SIGNS: BP 138/94, temperature 96.3 tympanic, height 5 feet 4 inches, weight 160 pounds, body mass index 27. CONSTITUTIONAL: Patient appears well developed and nourished with good attention to body grooming and habitus. HEAD AND FACE: Head is normocephalic and atraumatic without any gross head, face, or neck masses. EYES: Conjunctival and pupillary light and accommodation are normal. EARS, NOSE, MOUTH, AND THROAT: Unremarkable. NECK: Neck is supple. Trachea is midline without any adenopathy or crepitance palpable. CARDIOVASCULAR: Normal S1, S2 without murmur, gallops, rubs, or clicks noted. RESPIRATORY: Chest is symmetric. No scars are visible. No port or pacemaker. LUNGS: Clear to auscultation bilaterally and equal. GASTROINTESTINAL: Abdominal organs, bladder, and kidney show no abnormalities, masses, tenderness, or rigidity. LOWER EXTREMITIES: VASCULAR EXAMINATION: DP palpable. PT palpable. Ecchymosis present, observation edema over the left tibialis posterior insertional area. DERMATOLOGIC: No rash, subcutaneous nodules, lesions, or ulcers observed. NEUROLOGICAL: Touch, pin, vibratory and proprioception sensations are normal. Deep tendon reflexes normal. MUSCULOSKELETAL: Muscle tone is normal. Muscle strength 5/5 for all groups tested. No pain on range of motion of left ankle. Pain on deep palpation ATF, CF and PTF ligaments. Examination of posterior tibial tendon reveals pain on direct insertional area weak and painful inversion against resistance. Forefoot is abducted in the transverse plane on the rearfoot. Heel-toe rise is unable to be performed. MRI on 09/14/2017 of the left foot shows os naviculare areas appearing with a chronic partial tear of the anterior talofibular and anterior tibiofibular ligaments, bone contusion of the navicular and os naviculare, most likely tendinopathy with no evidence for rupture, chronic partial tears of the medial collateral ligament complex. MRI on 07/05/2017 of the left foot shows significant marrow edema identified within the medial aspect of the navicular as well as an os naviculare. The appearance suggests os naviculare syndrome, mild overlying soft tissue edema is noted. Appearance suggest os naviculare syndrome. MRI shows no acute evidence of a fracture, evidence of age determinant likely chronic tearing involving anterior tibiofibular ligament and anterior talofibular ligaments. IMPRESSION: 1. Posterior tibial tendinitis, left. 2. Os tibiale externum. 3. Difficulty walking. 4. Pain lower extremity, leg and foot. 5. Incomplete tear of the talofibular ligament and ankle tibiofibular syndesmosis ligament on the left. PLAN: We reviewed conservative treatment options, which she notes she has had looked by Dr. Chapa and Dr. Vyas at length. We will continue immobilization and nonweightbearing status due to her acute flare and will move up the surgery date. Surgical procedures to be performed: 1. Excision of os tibiale externum. 2. Kidner advancement, left. 3. Posterior tibial tendon repair with graft left. 4. General anesthesia as an outpatient at the hospital. We discussed the use of graft and associated risk. Procedure, risks and complications were fully reviewed with the patient. Consent form, foot diagram and illustration reviewed in all their entirety. All the patient's questions were answered. Complications were discussed in detail with the patient including pain, infection, swelling that may or may not be excessive, pins and needles feeling, numbness, metatarsalgia, excessive bleeding, delay or nonhealing of bone, delay or nonhealing of skin, enlarged scar, failure of the procedure, reoccurrence or worsening condition which may or may not require further surgery, adverse reaction to anesthesia, allergic reaction to suture or other implant material, loss of toe, foot, or leg, flail toe, stiff toe, short toe, elevated toe, transfer lesion or callus, peripheral neurovascular complications such as phlebitis, damage to nerves or vascular structures, significant chronic pain, chronic nerve pain, damage, and general medical complications. Patient will be required to be nonweightbearing in a cast for a minimum of 6-8 weeks followed by weightbearing cast immobilization for 2-4 weeks and not return to dress shoes for 10-16 weeks depending on the postop edema. The patient is aware this is an elective type procedure and I recommend a second opinion. Patient stated they understood, consent form signed with a copy of foot diagram and illustration given to the patient. Verbal and written postop instructions were given. Patient will return to the office for postop check for TURF MANAGER and AFO casting. At the time of the preoperative appointment, Keflex was dispensed. MTDD
[~2017-10-03] VITALS: Ht 162.6 cm; Wt 72.7 kg
[~2017-10-03] MED LIST changes: -ADAL20KI INJ; +ATROPINE SULFATE 0.1 MG/ML 5ML SYR IV PRN; +BUPIVACAINE 0.5 % 5 MG/1 ML MPF 30ML VIAL ONE; +BUPIVACAINE 0.5 % 5 MG/1 ML PF 10ML VIAL ONE; +CEFAZOLIN 1000MG IV PUSH 7.5 ML IV SCH; +DEXAMETHASONE SOD INJ 4 MG/ML VIAL ONE; -DICY10CA55 PO; -ERGO500011 PO; +FENTANYL CITRATE INJ 50 MCG/1 ML 2 ML VIAL ONE; +LACTATED RINGER'S 1000ML 1,000 ML IV SCH; +LIDOCAINE HCL 2% 2 ML VIAL (20MG/ML) ONE; +MIDAZOLAM HCL 1 MG/ML 2ML VIAL ONE; +ONDANSETRON INJ 2 MG/ML 2 ML VIAL IV PRN; +ONDANSETRON INJ 2 MG/ML 2 ML VIAL ONE; +PROPOFOL IV EMULSION 10 MG/ML 20 ML VIAL IV ONE; +SODIUM CHLORIDE 0.9% 1000ML 1,000 ML IV SCH
[2017-10-03 08:20] VITALS: BP 135/84; PULSE 88; TEMP 36.9; O2SAT 99; Ht 162.6 cm; Wt 72.7 kg
--- NOTE | 2017-10-03 09:22 | Discharge Instructions ---
Discharge Instructions Date of Service Oct 03, 2017. Visit Reason for Visit: Posterior Tibial Tendonitis Discharge Discharge Diagnosis / Problem: same as admission diagnosis Discharge Goals Goal(s): Decrease discomfort Activity Recommendations Activity Limitations: as noted below Medications: * Resume previous medications unless instructed by your surgeon. * Take your medications as prescribed. Call our office ([phone]) at any time, if you experience severe pain that does not subside shortly after taking your pain medication. Activity: * Do not put any standing weight on your operated foot/ankle. Use the crutches or walker as instructed. Special Care: * Keep your bandage clean and dry. Do not remove your bandage unless otherwise instructed. A small amount of blood may appear on the bandage over the surgical site. Call our office ([phone]) if you bandage becomes blood-soaked or wet. * Elevate your operated foot/ankle on pillows, above the level of your heart, as often as possible during the first 2-3 days following surgery. Keep your knee flexed slightly with a pillow under your knee when you elevate your foot/ankle. * Apply a ice bag to your foot/ankle over the operative site for 20-30 minutes out of each hour while you are awake. Do not allow the ice bag to directly contact bare skin. * Avoid bumping or handling any pins visible in your toes. If any pin feels or appears loose, call the office ([phone]). * Take your oral temperature in the morning and at bedtime. Call our office ([phone]) if your temperature rises above 101 degrees Fahrenheit. Call your surgeon's office at ([phone]) for any problems or concerns such as excessive bleeding and/or pain unrelieved by your prescribed pain medications. If you have any questions, please do not hesitate to ask them. Avoid all tobacco products. If you need help to stop smoking, call [place]'s FREE QUITLINE at . This is a free call. Follow-up: Follow-up with Dr. Carballo Anesthesia . Post Anesthesia Instructions: If you have had General Anesthesia or IV Sedation: * Do not drive today. * Resume driving when surgeon permits. * Do not make important decisions or sign legal documents today. * Call surgeon for: 1. Temperature elevations greater than 101 degrees F. 2. Uncontrollable pain. 3. Excessive bleeding. 4. Persistent nausea and vomiting. 5. Medication intolerance (nausea, vomiting or rash). * For nausea and vomiting use only clear liquids such as: tea, soda, bouillon until nausea subsides, then gradually increase diet as tolerated. * If you have any concerns or questions, call your surgeon's office. If physician is unavailable and it is an emergency, call 911 or go to the nearest emergency room. . Diet Recommendations Recommended Home Diet: resume previous diet Pending Studies Studies pending at discharge: no Medical Emergencies . Who to Call and When: Medical Emergencies: If at any time you feel your situation is an emergency, please call 911 immediately. . Non-Emergent Contact Non-Emergency issues call your: Primary Care Provider . . "Provider Documentation" section prepared by Ly Cedeño. .
--- NOTE | 2017-10-03 11:14 | [facility] Post Operative Brief Note ---
Immediate Operative Summary Operative Date Oct 03, 2017. Pre-Operative Diagnosis Left posterior tibial tendinitis; Os tibiale externum Post-Operative Diagnosis Same as Preop Procedure(s) Performed Left Excision of Os Tibibal Externum, Kidner Advancement with tendon transfer, Posterior Tibial Tendon Repair with Graft Surgeon Dr. Carballo Plate Slitter And Inspector Surgeon(s) None Estimated Blood Loss 3 ml Findings See Below comlete tear PT tendon Specimens A. Bone from left foot Drains None Anesthesia Type General Regional Complication(s) none
[2017-10-03] MEDS: FENTANYL CITRATE INJ 50 MCG/1 ML 2 ML VIAL IV PRN ×4 (11:32→11:52)
--- NOTE | 2017-10-03 11:58 | OPERATIVE REPORT ---
DATE OF OPERATION: 10/03/2017 SURGEON: Dr. Carballo. PREOPERATIVE DIAGNOSES: 1. Posterior tibial tendonitis. 2. Os tibiale externum. 3. Pain. 4. Difficulty walking. POSTOPERATIVE DIAGNOSES: Same with posterior tibial tendon complete rupture. PROCEDURE: 1. Excision of os tibiale externum, left. 2. Kidner advancement, left with posterior tibial tendon transfer. 3. Posterior tibial tendon repair with allograft. 4. Partial excision of navicular left foot. HEMOSTASIS: Pneumatic thigh tourniquet inflated to a level of 350 mmHg for a total tourniquet time. ANESTHESIA: General with regional field block by anesthesia. MATERIALS: Arthrex DX FiberTak suture anchor 1.4 mm diameter with #1 FiberWire and Arthrex 500 human dermal allograft 30 x 40 x 0.5 mm. HISTOPATHOLOGY: Bone sent. COMPLICATIONS: None. The patient tolerated the procedure and anesthesia well without complications, transferred to recovery room with vital signs stable and neurovascular status intact. DESCRIPTION OF PROCEDURE: The patient was brought to the OR and placed on the OR table in supine position. Upon completion of general anesthesia and regional field block, a well-padded thigh tourniquet was applied to left lower extremity. The extremity was scrubbed, prepped and draped in the usual aseptic fashion. Attention was directed medially over the posterior tibial tendon insertional area. The extremity was scrubbed, prepped and elevated and exsanguinated and tourniquet raised to a level of 350 mmHg. Attention was directed medially over the posterior tibial tendon where an incision was made directly over the posterior tibial tendon course after mapping out the posterior tibial tendon artery pulse. Dissection was carried down to the level of the tendon with care to preserve all neurovascular structures. It should be noted that there was complete rupture of the tendon proximal to the os tibiale externum that was easily palpable and it extended approximately 1-2 cm up into the leg. Using the fluoroscan, os tibiale externum was identified and totally excised. There was still a prominence of the navicular. This was also excised due to the large protuberance of the navicula over this area. Kidner was performed with transfer of the posterior tibial tendon to a more distal plantar aspect. The tendon was repaired using 0 Ethibond and was anchored into this distal attachment using an Arthrex FiberTak suture. An ArthroFlex 500 human dermal allograft was also placed around and over the tendon following the repair and reconstruction. The deep structures were closed using 2-0 Vicryl and 3-0 Vicryl. Skin margins were closed using 5-0 PDS in subcuticular fashion interspersed with 4-0 nylon. Dry sterile compressive dressing with a well-padded BK splint was applied. The patient tolerated the procedure and anesthesia well without complications, transferred to the recovery room with vital signs stable and neurovascular status intact. I attest to the content of the Intraoperative Record and any orders documented therein. Any exception s are noted below.
[2017-10-03 12:20] VITALS: BP 125/77; PULSE 100; TEMP 36.6; O2SAT 97
[2017-10-03 12:50] VITALS: BP 118/71; PULSE 88; O2SAT 97
--- NOTE | 2017-10-03 13:01 | Anesthesiology Progress Note ---
Anesthesia Post Op Note Date & Time Oct 03, 2017 at 13:00 Vital Signs Vital Signs Past 12 Hours Date Time Temp Pulse Resp B/P (MAP) Pulse Ox O2 Delivery O2 Flow Rate FiO2 10/03/17 12:20 36.6 100 16 125/77 97 Room Air 10/03/17 12:10 97 16 128/89 96 Room Air 10/03/17 12:00 100 16 138/81 100 Nasal Cannula 3 10/03/17 11:50 100 18 128/85 100 Oxymask 3 10/03/17 11:40 95 17 132/88 100 Oxymask 3 10/03/17 11:30 87 17 129/84 100 Oxymask 5 10/03/17 11:21 36.2 100 16 130/95 100 Oxymask 5 10/03/17 08:20 36.9 88 14 135/84 (101) 99 Room Air Notes Mental Status: alert / awake / arousable, participated in evaluation Pt Amnestic to Procedure: Yes Nausea / Vomiting: adequately controlled Pain: adequately controlled Airway Patency, RR, SpO2: stable & adequate BP & HR: stable & adequate Hydration State: stable & adequate Anesthetic Complications: no major complications apparent
--- NOTE | 2017-10-03 13:09 | DIAGNOSTIC IMAGING REPORT ---
ANKLE 2 VIEWS CLINICAL HISTORY: 27 years-old Female presenting with LT ANKLE. TECHNIQUE: 2 fluoroscopic image(s) recorded as part of an intraoperative procedure. COMPARISON: 06/22/2014. FINDINGS/IMPRESSION: Normal appearance of the ankle. Os trigonum suspected. Please see surgical report for further details. Fluoroscopy dosage (mGy): 0.35. Fluoroscopy time: 15.3 seconds. Number of fluoroscopic spot images: 0. Electronically signed by: Kilo Jiménez M.D. 10/03/2017 1:08 PM Dictated Date/Time: 10/03/2017 1:06 PM
[2017-10-03 13:20] VITALS: BP 144/72; PULSE 97; TEMP 37; O2SAT 97
== END | disposition home or self-care (01) ==
LOC: C.ACU 07:24
PROVIDERS: ATTEND Podiatrist Foot & Ankle Surgery
DX: M76.822 Posterior tibial tendinitis, left leg (principal); M92.62 Juvenile osteochondrosis of tarsus, left ankle; M79.662 Pain in left lower leg; M79.675 Pain in left toe(s); R26.2 Difficulty in walking, not elsewhere classified; Z88.2 Allergy status to sulfonamides

== ENCOUNTER → 2017-10-11 | Outpatient (CLI) | payer BC ==
[~2017-10-11] MED LIST changes: -ACET-1256 PO; -ATROPINE SULFATE 0.1 MG/ML 5ML SYR IV PRN; -BUPIVACAINE 0.5 % 5 MG/1 ML MPF 30ML VIAL ONE; -BUPIVACAINE 0.5 % 5 MG/1 ML PF 10ML VIAL ONE; -CEFAZOLIN 1000MG IV PUSH 7.5 ML IV SCH; -DEXAMETHASONE SOD INJ 4 MG/ML VIAL ONE; -FENTANYL CITRATE INJ 50 MCG/1 ML 2 ML VIAL ONE; -LACTATED RINGER'S 1000ML 1,000 ML IV SCH; -LIDOCAINE HCL 2% 2 ML VIAL (20MG/ML) ONE; -MIDAZOLAM HCL 1 MG/ML 2ML VIAL ONE; -ONDANSETRON INJ 2 MG/ML 2 ML VIAL IV PRN; -ONDANSETRON INJ 2 MG/ML 2 ML VIAL ONE; -PROPOFOL IV EMULSION 10 MG/ML 20 ML VIAL IV ONE; -SODIUM CHLORIDE 0.9% 1000ML 1,000 ML IV SCH
--- NOTE | 2017-10-11 16:57 | DIAGNOSTIC IMAGING REPORT ---
ULTRASOUND L VENOUS DOPP LOWER EXT UNILAT CLINICAL HISTORY: LT LEG PAIN,SWELLING,R/O DVT COMPARISON STUDY: No previous studies for comparison. FINDINGS: Real-time and color flow Doppler imaging were performed. Flow was seen within the femoral, popliteal and calf veins with no intraluminal thrombus demonstrated. The saphenous vein is patent. IMPRESSION: No evidence of left lower extremity DVT. Electronically signed by: Narendra Peacock M.D. 10/11/2017 4:56 PM Dictated Date/Time: 10/11/2017 4:56 PM
== END | disposition home or self-care (01) ==
LOC: C.ULTR 15:56
PROVIDERS: ATTEND Podiatrist Foot & Ankle Surgery
DX: M79.605 Pain in left leg (principal)

== ENCOUNTER 2020-11-03 22:01 | Inpatient (IN) ==
--- NOTE | 2020-11-03 22:24 | History & Physical Report ---
Date of Service November 03, 2020 Assessment & Plan (1) Previous delivery affecting , antepartum: Admit to L&D. I have counseled patient. She is in labor, given prior recent section, recommend repeat for delivery at this time. Reviewed risks/benefits/alternatives. Reviewed risk of injury to uterus, ovaries, fallopian tubes, bowel, bladder, baby, surrounding organs. Questions answered. She is agreeable to . Will proceed to OR. History of Present Illness Chief Complaint: labor Primary Care Provider: Glenn Andrews MD 30 yo (twins) @ 39 /, presents in labor. Prior Pre-eclampsia - 81mg ASA recommended 12 weeks Prior PTB was iatrogenic, ie, not spontaneous PTB C/S 08/16/19, short interval interval. Advised against TOLAC, recommend repeat HROBM- pt is to have repeat c/s Allergies Allergy/AdvReac Type Severity Reaction Status Date / Time hydromorphone Allergy Intermediate Rash, Verified 10/28/20 16:14 itching, tongue swelling Sulfa (Sulfonamide Allergy Intermediate Rash Verified 10/28/20 16:14 Antibiotics) meloxicam AdvReac Mild Lethargic Verified 10/28/20 16:14 Home Medications Medication Instructions Recorded Confirmed Type vedolizumab [Entyvio] 0 mg IV Q8WK 08/02/19 10/28/20 History acetaminophen 325 mg capsule 650 mg PO UD PRN 01/14/20 10/28/20 History pyridoxine (vitamin B6) 1 tab PO HS 03/30/20 10/28/20 History folic acid 1 tab PO HS 04/08/20 10/28/20 History ondansetron HCl 4 mg PO UD PRN 04/08/20 10/28/20 History Vitamin 1 tab PO HS 10/19/20 10/28/20 History Vitamin D 1 tab PO HS 10/19/20 10/28/20 History aspirin [Aspir-81] 81 mg PO HS 10/19/20 10/28/20 History bupropion HCl 100 mg PO HS 10/19/20 10/28/20 History Patient History Medical History CD (Crohn's disease) Concussion Remote hx TBI/concussion (2007)- r/t cheerleading injury > no residual issues noted GERD (gastroesophageal reflux disease) History of pre-eclampsia IBS (irritable bowel syndrome) Migraine Surgical History History of anesthesia reaction "slow to wake" History of section, low transverse History of cholecystectomy History of colonoscopy X 8 History of esophagogastroduodenoscopy (EGD) X 2 History of tonsillectomy and adenoidectomy History of wisdom tooth extraction Status post tendon repair left tibial tendon repair with graft [place] teeth extracted Family History Sister Family history of reaction to anesthesia twin sister, difficulty waking Thyroid disease Mother Family history of reaction to anesthesia difficulty waking Thyroid disease Denies family history of Ovarian cancer Breast cancer Colorectal cancer Social History Smoking Status: Never smoker Second Hand Exposure: No; Hx Alcohol Use: Yes Alcohol type: beer, wine and hard liquor Hx Substance Use: No Preferred Language: [place] Communication Ability: Effective Visual Impairment: No Limitations Hearing Ability: Normal Automatic Nailing Machine Operator Required: No Beliefs That Will Affect Care: None marital status: marital status details: Orlando Snyder (32) [phone] Current Living Situation: Spouse and Family Current Living Situation Comment: Lives with and step daughter, 2 berta ghters, dog, rabbit current occupational status: employed current occupation: Teacher @ [employer] How many Children do You have: 2 How many Children do You have Comment: twins Feels Safe at Home: Yes Childhood Exposure to Second-Hand Smoke: No caffeine: Yes Dental Care, Regularly: Yes Physical Activity Frequency: Daily Seatbelt Use: always Sunscreen Use: Yes Assistive Devices: Glasses Review of Systems All systems reviewed & are unremarkable except as noted in HPI & below Physical Exam Physical Exam: SVE 4/80/-2 Constitutional: WD/WN, vitals as above Respiratory: normal respiratory effort, lungs clear to auscultation no respiratory distress Cardiovascular: Rate/Rhythm: regular rate and regular rhythm Gastrointestinal (Abdomen): Inspection/Auscultation: abdomen normal to inspection Percussion/Palpation: abdomen soft; abdomen nontender Gravid. No s/s chorio or abruption. Skin: no rashes, warm and dry Psychiatric: A+Ox3, euthymic affect Results & Data ([facility]) Vital Signs (Past 12 Hours) Vital Signs Pulse BP 11/03/20 22:10 90 140/93 Monitoring External Monitor FHT Cat 1 Tocodynamometer Q 2 Coding Level of Care Code None Diagnoses Previous delivery affecting , antepartum O34.219
[2020-11-03] MEDS ORDERED: LACTATED RINGER'S 1,000 ML IV SCH (22:30)
--- NOTE | 2020-11-03 22:43 | Anesthesiology Consultation ---
Date of Service November 03, 2020 Assessment & Plan ASA ASA2E Proposed Anesthesia Anesthesia Type: Spinal Risk / Benefits Reviewed With: PT / POA / Parent / Guardian, Accepts Plan and Informed Consent Obtained History Surgery Operation Date: 11/03/20 22:20 Proposed Procedures p Section in LD - Elise BobDO romel Height/Weight Height: 5 ft 4 in Weight: 93.894 kg Allergies Allergy/AdvReac Type Severity Reaction Status Date / Time hydromorphone Allergy Intermediate Rash, Verified 10/28/20 16:14 itching, tongue swelling Sulfa (Sulfonamide Allergy Intermediate Rash Verified 10/28/20 16:14 Antibiotics) meloxicam AdvReac Mild Lethargic Verified 10/28/20 16:14 Medications Home Medications Medication Instructions Recorded Confirmed Last Taken vedolizumab [Entyvio] 0 mg IV Q8WK 08/02/19 10/28/20 Unknown acetaminophen 325 mg capsule 650 mg PO UD PRN 01/14/20 10/28/20 Unknown pyridoxine (vitamin B6) 1 tab PO HS 03/30/20 10/28/20 Unknown folic acid 1 tab PO HS 04/08/20 10/28/20 Unknown ondansetron HCl 4 mg PO UD PRN 04/08/20 10/28/20 Unknown Vitamin 1 tab PO HS 10/19/20 10/28/20 Unknown Vitamin D 1 tab PO HS 10/19/20 10/28/20 Unknown aspirin [Aspir-81] 81 mg PO HS 10/19/20 10/28/20 Unknown bupropion HCl 100 mg PO HS 10/19/20 10/28/20 Unknown NPO Date Last Intake of Fluids: 11/03/20 Time Last Intake of Fluids: 21:00 Date Last Intake of Solids: 11/03/20 Time Last Intake of Solids: 19:30 Past Medical History Medical History CD (Crohn's disease) Concussion Remote hx TBI/concussion (2007)- r/t cheerleading injury > no residual issues noted GERD (gastroesophageal reflux disease) History of pre-eclampsia IBS (irritable bowel syndrome) Migraine Exercise / Class Metabolic Activity II 4-5 Yardwork/Stairs/Walk up hill Past Family History Family History Sister Family history of reaction to anesthesia twin sister, difficulty waking Thyroid disease Mother Family history of reaction to anesthesia difficulty waking Thyroid disease Denies family history of Ovarian cancer Breast cancer Colorectal cancer Past Surgical History Surgical History History of anesthesia reaction "slow to wake" History of section, low transverse History of cholecystectomy History of colonoscopy X 8 History of esophagogastroduodenoscopy (EGD) X 2 History of tonsillectomy and adenoidectomy History of wisdom tooth extraction Status post tendon repair left tibial tendon repair with graft [place] teeth extracted Past Anesthesia History No Hx of Anesthesia Complications and No Family Hx of Anesthesia Complications History of PONV No Hx of PONV and No Hx of Motion Sickness Social History Smoking Status: Never smoker Hx Alcohol Use: Yes Alcohol type: beer, wine and hard liquor alcohol intake frequency: other Hx Substance Use: No substance use type: does not use Review of Systems denies fever/cough/ colds/ chest pain/ SOB/ ROSIE denies ROSIE Physical Exam Vital Signs Last Vital Signs Temp 36.6 C 11/03/20 22:07 Pulse 90 11/03/20 22:10 Resp 18 11/03/20 22:07 BP 140/93 11/03/20 22:10 ENMT Mouth: no TMJ abnormality and no dentition abnormality Thyromental Distance: > or= 3.5 Finger Breadths Mallampati Class: II Neck neck extension not limited Respiratory normal respiratory effort; no respiratory distress Auscultation: lungs clear to auscultation bilaterally Cardiovascular Rate/Rhythm: regular rate and regular rhythm Neurologic moves all extremities Psychiatric Orientation: alert and oriented x 3
[2020-11-03] MEDS ORDERED: CITRIC ACID/SODIUM CITRATE 15 ML UDC ONE (22:44)
[2020-11-03] MEDS ORDERED: ceFAZolin 2000MG 2,000 MG/15 ML SYR IV STA (22:44)
[2020-11-03] MEDS ORDERED: CITRIC ACID/SODIUM CITRATE 15 ML UDC PO STA (22:44)
[2020-11-03] MEDS ORDERED: fentaNYL citrate 100 MCG/2 ML VIAL ONE ×2 (22:50→23:56)
[2020-11-03] MEDS ORDERED: OXYTOCIN 10 UNITS/ML VIAL ONE (22:50)
[2020-11-03 22:51] LABS: Basophils # (auto) 0.04 K/uL (0-0.2); Basophils % (auto) 0.2 %; Eosinophils # (auto) 0.15 K/uL (0-0.5); Eosinophils % (auto) 0.8 %; Hematocrit (blood only) 38.3 % (37-47); Hemoglobin 13.3 g/dL (12.0-16.0); Immature Granulocytes # (auto) 0.08 K/uL (0.00-0.02); Immature Granulocytes % (auto) 0.4 %; Lymphocytes # (auto) 3.71 K/uL (1.2-3.4); Mean Corpuscular Hemoglobin 31.1 pg (25-34); Mean Corpuscular Volume 89.7 fL (80-100); Mean Platelet Volume 10.5 fL (7.4-10.4); Monocytes # (auto) 1.22 K/uL (0.11-0.59); Monocytes % (auto) 6.3 %; Neutrophils # (auto) 14.28 K/uL (1.4-6.5); Neutrophils % (auto) 73.3 %; Platelet Count 237 K/uL (130-400); RDW Coefficient of Variation 13.5 % (11.5-14.5); RDW Standard Deviation 43.7 fL (36.4-46.3); Red Blood Count 4.27 M/uL (4.2-5.4); White Blood Count 19.48 K/uL (4.8-10.8)
[2020-11-03 22:58] LABS: Mean Corpuscular Hgb Conc 34.7 g/dL (32-36)
[2020-11-03] MEDS ORDERED: PHENYLEPHRINE 100MCG/ML 5ML SYR ONE (23:31)
[2020-11-03] MEDS ORDERED: ONDANSETRON INJ 2 MG/ML 2 ML VIAL ONE (23:31)
[2020-11-03] MEDS ORDERED: SODIUM CHLORIDE 0.9% 1000ML 1,000 ML IV SCH (23:45)
[2020-11-03] MEDS ORDERED: ONDANSETRON INJ 2 MG/ML 2 ML VIAL IV PRN (23:47)
[2020-11-03] MEDS ORDERED: ePHEDrine sulfate 50 MG/ML AMP IV PRN (23:47)
[2020-11-03] MEDS ORDERED: ATROPINE SULFATE 0.1 MG/ML 10ML SYR IV PRN (23:47)
[2020-11-03] MEDS ORDERED: MoRPHine SULFATE PCA 30 MG/30 ML IV PRN (23:47)
[2020-11-03] MEDS ORDERED: PROMETHAZINE HCL 12.5 MG in SODIUM CHLORIDE 0.9% 50 ML IV PRN (23:47)
[2020-11-03] MEDS ORDERED: fentaNYL citrate 100 MCG/2 ML VIAL IV PRN (23:47)
[2020-11-03] MEDS ORDERED: NALOXONE HCL 0.4 MG/1 ML VIAL/CARP IV PRN (23:47)
[2020-11-03] MEDS ORDERED: KETOROLAC 30 MG/ML VIAL IV PRN (23:50)
[2020-11-04] MEDS ORDERED: KETOROLAC 30 MG/ML VIAL ONE (00:05)
[2020-11-04 00:06] LABS: Base Excess Cord Venous Blood 0.7 mEq/L (-7.7-1.9); Cord Venous Blood HCO3 26 mmol/L (18.4-26.8); Cord Venous Blood PCO2 45 mmHg (30.4-57.2); Cord Venous Blood PO2 29 mmHg (14.1-43.3); Cord Venous Blood pH 7.38 (7.20-7.44); O2 Saturation Cord Venous Bld 67.2 % (<68)
[2020-11-04] MEDS ORDERED: fentaNYL citrate 100 MCG/2 ML VIAL ONE (00:07)
--- NOTE | 2020-11-04 00:50 | Operative Report ---
[facility] Post Operative Report Pre & Post Diagnosis Operation Date: 11/03/20 22:20 Pre-Op Diagnosis: History of Section X 1, Labor Post-Op Diagnosis: Same as Pre Op I identified the patient and participated in the time-out.: Yes Procedure Operation Date: 11/03/20 22:20 Actual Procedures p Repeant Low Transverse Section for the of a viable male child at 2333. - Elise Bhagat DO Surgeon Elise Bhagat, DO Underground Utility Locator Nikita Jones RN Estimated Blood Loss 500 Findings Consistent with Post-Op Diagnosis Viable male , Apgars 8/9. Weight pending, please see nursery notes. Uterus, ovaries, tubes wnl. Adhesive disease. Specimens cord blood, cord gas, placenta. Drains glez, clear yellow Anesthesia Type Spinal Complications none Disposition Accompanied Patient To Recovery: No Disposition: L&D Indications 30yo @ 39 4, spontaneous labor with h/o section, short interval . Description of Procedure The patient was seen in her labor and delivery room, risks benefits and alternatives to surgery were reviewed. Informed consent obtained. Questions were answered. She was taken to the operating room, spinal anesthesia was administered. She was then prepared and draped in the usual sterile fashion in the supine position with a leftward tilt. Timeout was confirmed. A Pfannenstiel skin incision was made with a scalpel, and carried through to the underlying layer of fascia. Fascia was nicked at midline, and this incision was extended bilaterally. The superior aspect of the fascial incision was grasped with Thierno clamps x2, elevated off the underlying rectus abdominis muscles, and dissected sharply and bluntly. In similar fashion, the inferior aspect of the fascial incision was dissected. The rectus abdominis muscles were , and the peritoneum was entered bluntly digitally. There was omentum adhesion, this was taken down with cautery. This was extended bilaterally. The bladder flap was taken down carefully using Metzenbaum scissors. Using a new scalpel, a low transverse uterine incision was created. Clear amniotic fluid noted. The infant was delivered from a cephalic presentation. The head delivered, followed by shoulders and body. Nuchal x 1, easily reduced. Spontaneous cry on the field. The cord was doubly clamped and cut, and the was handed off to the waiting registered veterinary technician. A segment was retained for cord gases. Cord blood was obtained. The placenta was delivered spontaneously intact. The uterus was exteriorized, and cleared of all clots and debris. The hysterotomy incision was reapproximated using 0 Vicryl in a running locked stitch. A second layer of the same suture was used to imbricate the incision. Posterior uterus was evaluated and normal. The uterus was returned to the abdomen, and gutters were cleared of clots and debris. Excellent hemostasis was observed. The fascial incision was reapproximated using 0 Vicryl in a running stitch. The subcutaneous tissue was irrigated, and reapproximated using 2-0 plain gut in a running stitch. The skin was reapproximated using 4-0 Vicryl in a running subcuticular stitch. Steri-Strips and a bandage were applied. The patient tolerated the procedure well, and will be taken to the recovery area in stable and good condition. I attest to the content of the Intraoperative Record and any orders documented therein. Any exceptions are noted below.
--- NOTE | 2020-11-04 01:01 | Anesthesiology Progress Note ---
Date of Service November 04, 2020 Anesthesia Post Procedure Vital Signs Vital Signs: Temp Pulse Resp BP Pulse Ox 11/04/20 00:59 82 100 11/04/20 00:54 76 100 11/04/20 00:53 70 100/54 L 11/04/20 00:51 75 92/52 L 11/04/20 00:49 74 106/59 L 98 11/04/20 00:47 72 104/55 L 11/04/20 00:45 73 108/57 L 11/03/20 22:43 94 H 140/88 11/03/20 22:10 90 140/93 11/03/20 22:07 36.6 C 18 Transfer of Care Handoff Completed per policy Notes Mental Status: alert / awake / arousable and participated in evaluation Patient Amnestic to Procedure: Yes Nausea / Vomiting: adequately controlled Pain: adequately controlled Airway Patency, RR, SpO2: stable & adequate BP & HR: stable & adequate Hydration State: stable & adequate Anesthetic Complications: no major complications apparent and Pt Satisfied with anesthetic care
[2020-11-04] MEDS ORDERED: diphenhydrAMINE Capsule 25 MG CAP PO PRN (01:07)
[2020-11-04] MEDS ORDERED: KETOROLAC 30 MG/ML VIAL IV PRN (01:07)
[2020-11-04] MEDS ORDERED: LACTATED RINGER'S 1,000 ML IV SCH (01:07)
[2020-11-04] MEDS ORDERED: MAGNESIUM HYDROXIDE SUSP 30 ML UDC PO PRN (01:07)
[2020-11-04] MEDS ORDERED: BENZOCAINE 20% AER SPR 82.5 GM CAN EXT PRN (01:07)
[2020-11-04] MEDS ORDERED: diphenhydrAMINE 50 MG/ML VIAL IV PRN (01:07)
[2020-11-04] MEDS ORDERED: HYDROCORTISONE ACETATE 25 MG SUPP PR PRN (01:07)
[2020-11-04] MEDS ORDERED: DIPHTHERIA/TETANUS/PERTUSSIS 0.5 ML SYR/VIAL IM ONE (01:07)
[2020-11-04] MEDS ORDERED: SENNA 8.6 MG TAB PO PRN (01:07)
[2020-11-04] MEDS ORDERED: ONDANSETRON INJ 2 MG/ML 2 ML VIAL IV PRN (01:07)
[2020-11-04] MEDS ORDERED: SUPERCREAM 0.870% 15 GM JAR EXT PRN (01:07)
[2020-11-04] MEDS ORDERED: PROMETHAZINE HCL 25 MG in SODIUM CHLORIDE 0.9% 50 ML IV PRN (01:07)
[2020-11-04] MEDS: OXYTOCIN 30 UNITS in LACTATED RINGER'S 1,000 ML IV SCH ×2 (01:34→10:35)
[2020-11-04] MEDS ORDERED: Nursing to Pharmacy Communication SCH ×2 (01:45→13:00)
--- NOTE | 2020-11-04 05:42 | Obstetrical Progress Note ---
Date of Service <Philip Reynoso MD - Last Filed: 11/04/20 07:25> November 04, 2020 Assessment & Plan <Philip Reynoso MD - Last Filed: 11/04/20 07:25> (1) state: 30 y/o (twins) who is s/p rLTCS at 39 4/7 on 11/03/20 and is POD1. Short interval . No complications during c/s. A pos. RI. - POD1, will work on PP milestones. Patient delievered yesterday night. - on nasal cannula supp oxygen sinne overnight. will monitor clinically - No calf swelling, pain on palpation, or asymmetry. No further workup at this time. - no pending labwork for today. CBC tomorrow - continue routine care - ambulate, advance diet (2) Depression with anxiety: - stable. continue home buproprion Subjective <Philip Reynoso MD - Last Filed: 11/04/20 07:25> Voiding: glez catheter in place Passing Gas:: No Diet Tolerance:: regular diet Feeding Type:: breast feeding Current Pain Level(1-10): 3 Requesting wrist brace for CTS and abd binder. New O2 req overnight. Lochia moderate. Review of Systems Denies fever, chills, sweats Denies shortness of breath, chest pain, palpitations. Denies breast pain. Denies dysuria. Denies headache or changes in vision. Denies nausea/vomiting. Numbness/tingling at wrists/hands Mood is calm. No calf pain. Physical Exam <Philip Reynoso MD - Last Filed: 11/04/20 07:25> General: Alert, oriented. No acute distress. Cardiac: Regular rate and rhythm, no murmurs/rubs/gallops. Respiratory: Clear to auscultation bilaterally, no wheezes/rales/rhonchi. No r espiratory distress. Abdomen: , soft, nontender. Uterus: Uterine fundus firm, palpable at level umbilicus, to the left Lower Extremities: No lower extremity edema or swelling. No deep calf pain. Mildly positive Jaime sign on left. Results & Data ([facility]) <Philip Reynoso MD - Last Filed: 11/04/20 07:25> Vital Signs (Past 12 Hours) Vital Signs Temp Pulse Pulse Resp BP BP Pulse Ox 11/04/20 04:15 16 92 11/04/20 03:50 36.8 C 81 18 126/78 93 11/04/20 03:15 18 95 11/04/20 02:59 94 H 96 11/04/20 02:55 84 128/67 11/04/20 02:54 82 94 11/04/20 02:50 18 11/04/20 02:49 86 93 11/04/20 02:45 86 129/67 11/04/20 02:44 85 96 11/04/20 02:43 80 94 11/04/20 02:39 83 96 11/04/20 02:35 78 131/69 11/04/20 02:34 79 95 11/04/20 02:32 80 93 11/04/20 02:29 85 96 11/04/20 02:25 82 130/65 11/04/20 02:24 82 94 11/04/20 02:20 18 11/04/20 02:19 80 96 11/04/20 02:15 80 126/64 11/04/20 02:14 86 95 11/04/20 02:09 91 H 95 11/04/20 02:05 83 127/65 11/04/20 02:04 88 96 11/04/20 01:59 82 96 11/04/20 01:55 82 120/60 11/04/20 01:54 83 95 11/04/20 01:50 20 11/04/20 01:49 89 96 11/04/20 01:45 80 131/61 11/04/20 01:44 83 97 11/04/20 01:40 18 11/04/20 01:39 92 H 96 11/04/20 01:34 91 H 97 11/04/20 01:30 18 11/04/20 01:29 91 H 97 11/04/20 01:25 85 102/50 L 11/04/20 01:24 89 97 11/04/20 01:20 18 11/04/20 01:19 98 H 97 11/04/20 01:14 89 99 11/04/20 01:10 18 11/04/20 01:09 84 99 11/04/20 01:04 92 H 100 11/04/20 01:02 79 88 L 11/04/20 01:00 18 11/04/20 00:59 82 100 11/04/20 00:54 76 100 11/04/20 00:53 70 100/54 L 11/04/20 00:51 75 92/52 L 11/04/20 00:50 36.5 C 18 11/04/20 00:49 74 106/59 L 98 11/04/20 00:47 72 104/55 L 11/04/20 00:45 73 108/57 L 11/03/20 22:43 94 H 140/88 11/03/20 22:10 90 140/93 11/03/20 22:07 36.6 C 18 Medications Administered <Elise Bhagat DO - Last Filed: 11/04/20 08:43> Co-Signing Physician Notes Resident Physician Supervision Note: I was present with Dr. Renyoso during the history and exam. I discussed the case with the resident and agree with the findings and plan as documented in the note. Any exceptions or clarifications are listed here: POD#1 doing well. Requesting voltaren for wrist pain, has been using this for carpal tunnel. Glez in place, draining adequate clear yellow urine. Bandage clean. Documented By: Elise Bhagat DO Resident Activity Tracking <Philip Reynoso MD - Last Filed: 11/04/20 07:25> Resident Involvement: Resident Care Provided Care Provided: OB Delivery
[2020-11-04] MEDS: DOCUSATE SODIUM 100 MG CAP PO SCH ×2 (07:46→20:26)
[2020-11-04] MEDS: FERROUS SULFATE 325 MG TAB PO SCH (07:46)
[2020-11-04] MEDS: SIMETHICONE 80 MG CHEW PO SCH ×4 (07:46→20:26)
[2020-11-04] MEDS ORDERED: PRENATAL VITAMIN 1 TAB PO SCH (08:00)
[2020-11-04] MEDS: DICLOFENAC SOD 1% GEL 100 GM TUBE EXT SCH ×2 (09:25→20:26)
[2020-11-04 10:28] LABS: Hematocrit (blood only) 33.6 % (37-47); Hemoglobin 11.6 g/dL (12.0-16.0)
[2020-11-04] MEDS: oxyCODONE/ACETAMINOPHEN 5mg/325mg TAB PO PRN ×2 (13:57→18:23)
[2020-11-04] MEDS: IBUPROFEN 600 MG TAB PO PRN ×2 (13:58→18:23)
[2020-11-04] MEDS: buPROPion SR 100 MG TABCR PO SCH (20:26)
[2020-11-04] MEDS: PRENATAL VITAMIN 1 TAB PO SCH (20:30)
[2020-11-05] MEDS: oxyCODONE/ACETAMINOPHEN 5mg/325mg TAB PO PRN ×4 (04:15→15:52)
[2020-11-05] MEDS: IBUPROFEN 600 MG TAB PO PRN ×4 (04:16→15:51)
[2020-11-05 06:21] LABS: Basophils # (auto) 0.02 K/uL (0-0.2); Basophils % (auto) 0.2 %; Eosinophils # (auto) 0.14 K/uL (0-0.5); Eosinophils % (auto) 1.1 %; Hematocrit (blood only) 31.4 % (37-47); Hemoglobin 10.6 g/dL (12.0-16.0); Immature Granulocytes # (auto) 0.06 K/uL (0.00-0.02); Immature Granulocytes % (auto) 0.5 %; Lymphocytes # (auto) 2.49 K/uL (1.2-3.4); Mean Corpuscular Hemoglobin 31.2 pg (25-34); Mean Corpuscular Hgb Conc 33.8 g/dL (32-36); Mean Corpuscular Volume 92.4 fL (80-100); Mean Platelet Volume 9.9 fL (7.4-10.4); Monocytes # (auto) 0.93 K/uL (0.11-0.59); Monocytes % (auto) 7.5 %; Neutrophils % (auto) 70.7 %; Platelet Count 189 K/uL (130-400); RDW Coefficient of Variation 13.9 % (11.5-14.5); RDW Standard Deviation 46.6 fL (36.4-46.3); White Blood Count 12.44 K/uL (4.8-10.8)
--- NOTE | 2020-11-05 06:48 | Obstetrical Progress Note ---
Date of Service <Philip Reynoso MD - Last Filed: 11/05/20 07:27> November 05, 2020 Assessment & Plan <Philip Reynoso MD - Last Filed: 11/05/20 07:27> (1) state: 30 y/o (twins) who is s/p rLTCS at 39 4/7 on 11/03/20 and is POD2. Short interval . No complications during c/s. A pos. RI. - Meeting PP milestones - No calf swelling, pain on palpation, or asymmetry. - cbc appropriate - continue routine care, encourage ambulation. continue . continue pain control. - tentative dispo today, will review d/c instructions. 6 wk PP f/u (2) Depression with anxiety: - stable. continue home buproprion Subjective <Philip Reynoso MD - Last Filed: 11/05/20 07:27> Ambulation: ambulating normally Voiding: no voiding problems Passing Gas:: Yes Diet Tolerance:: regular diet Lochia:: Small Feeding Type:: breast feeding Current Pain Level(1-10): 4 (improving. 4 when getting out of bed.) Overall, feeling better. Feels ready for home today as long as will be discharged on pain meds. Review of Systems Denies fever, chills, sweats Denies shortness of breath, chest pain, palpitations. Denies breast pain. Denies dysuria. Denies headache or changes in vision. Denies nausea/vomiting. Denies numbness, tingling, weakness. Denies calf pain. Mood is ok. Physical Exam <Philip Reynoso MD - Last Filed: 11/05/20 07:27> General: Alert, oriented. No acute distress. Cardiac: Regular rate and rhythm, no murmurs/rubs/gallops. Respiratory: Clear to auscultation bilaterally, no wheezes/rales/rhonchi. No respiratory distress. Abdomen: , soft, nontender. Uterus: Uterine fundus firm, below umbilicus, but difficult to palpate as patient had bandage on. Some dried seeping through of bandage at [place]. Lower Extremities: No lower extremity edema or swelling. No deep calf pain. Jaime's negative bilaterally. Results & Data ([facility]) <Philip Ryenoso MD - Last Filed: 11/05/20 07:27> Vital Signs (Past 12 Hours) Vital Signs Temp Pulse Resp BP Pulse Ox 11/04/20 23:40 36.9 C 88 18 119/76 98 11/04/20 19:30 36.7 C 88 18 109/68 97 Medications Administered <Reina Yeh MD, FACOG - Last Filed: 11/05/20 07:48> Co-Signing Physician Notes Resident Physician Supervision Note: I interviewed and examined the patient. Discussed with Dr. Reynoso and agree with findings and plan as documented in the note. Any exceptions or clarifications are listed here: Doing well. Is not yet 48 hours from delivery as delivered at [facility] on 11/04. She is feeling really well. Notes her carpal tunnel is the thing bothering her most. +flatus, voiding well. Mamadou regular diet, some ambulation. Recommend d/c in the am just to make sure all is well. She is agreeable. Documented By: Reina Yeh MD, FACOG
[2020-11-05] MEDS: FERROUS SULFATE 325 MG TAB PO SCH (08:15)
[2020-11-05] MEDS: DOCUSATE SODIUM 100 MG CAP PO SCH ×2 (08:15→20:01)
[2020-11-05] MEDS: SIMETHICONE 80 MG CHEW PO SCH ×4 (08:16→20:01)
[2020-11-05] MEDS: DICLOFENAC SOD 1% GEL 100 GM TUBE EXT SCH (08:58)
[2020-11-05] MEDS ORDERED: bisacodyL 5 MG TABEC PO SCH (20:00)
[2020-11-05] MEDS: buPROPion SR 100 MG TABCR PO SCH (20:01)
[2020-11-05] MEDS: PRENATAL VITAMIN 1 TAB PO SCH (20:04)
[2020-11-06] MEDS ORDERED: ONDANSETRON 4 MG OD TAB PO PRN (00:19)
[2020-11-06] MEDS: IBUPROFEN 600 MG TAB PO PRN (00:40)
[2020-11-06] MEDS ORDERED: bisacodyL 10 MG SUPP PR PRN (00:42)
--- NOTE | 2020-11-06 06:12 | Obstetrical Progress Note ---
Date of Service <Philip Reynoso MD - Last Filed: 11/06/20 07:19> November 06, 2020 Assessment & Plan <Philip Reynoso MD - Last Filed: 11/06/20 07:19> (1) state: 30 y/o (twins) who is s/p rLTCS at 39 4/7 on 11/03/20 and is POD3 (~midnight delivery end of 11/03). Short interval . No complications during c/s. A pos. RI. - Meeting PP milestones - No calf swelling, pain on palpation, or asymmetry. - 11/05 cbc appropriate. 11/06 H/H pending - continue routine care, encourage ambulation. continue . continue pain control. - dispo today, reviewed d/c instructions - 6 wk PP f/u (2) Depression with anxiety: - stable. continue home buproprion Subjective <Philip Reynoso MD - Last Filed: 11/06/20 07:19> Ambulation: ambulating normally Voiding: no voiding problems Passing Gas:: Yes (no BM) Diet Tolerance:: regular diet Lochia:: Small Feeding Type:: breast feeding Current Pain Level(1-10): 3 Doing well. Feels ready for home. Requesting percocet rx and zofran rx upon dispo. Review of Systems Denies fever, chills, sweats Denies shortness of breath, chest pain, palpitations. Denies breast pain. Denies dysuria. Denies headache or changes in vision. Denies nausea/vomiting. Denies numbness, tingling, weakness. Denies calf pain. Denies mood issues. Physical Exam <Philip Reynoso MD - Last Filed: 11/06/20 07:19> General: Alert, oriented. No acute distress. Cardiac: Regular rate and rhythm, no murmurs/rubs/gallops. Respiratory: Clear to auscultation bilaterally, no wheezes/rales/rhonchi. No respiratory distress. Abdomen: , soft, nontender. Uterus: Uterine fundus firm, palpable 1cm umbilicus, LTCS incision is nonerythematous. No drainage or bleeding. Steri strips attached. Lower Extremities: Trace LE edema on R. No calf asymmetry or erythema. No deep calf pain. Jaime's negative bilaterally. Results & Data ([facility]) <Philip Reynoso MD - Last Filed: 11/06/20 07:19> Vital Signs (Past 12 Hours) Vital Signs Temp Pulse Resp BP Pulse Ox 11/06/20 00:30 36.9 C 87 16 101/66 98 Medications Administered <Carol Correa MD, FACOG - Last Filed: 11/06/20 07:22> Co-Signing Physician Notes Resident Physician Supervision Note: I interviewed and examined the patient. Discussed with Dr. Reynoso and agree with findings and plan as documented in the note. Any exceptions or clarifications are listed here: doing well and wants to go home, misses twins. she is having constipation which is adding to her nausea, which was treated with zofran overnight and helped. +flatus, eating, ambul and voiding without issues. no pain issues. discussed percocet. instructions reviewed. ff 1 down, nt, incision c/d/i with steris. f/u 6wks. hgb this am is pending. Documented By: Carol Correa MD, FACOG
[2020-11-06 07:36] LABS: Hematocrit (blood only) 31.3 % (37-47); Hemoglobin 10.9 g/dL (12.0-16.0)
[2020-11-06] MEDS: PRENATAL VITAMIN 1 TAB PO SCH (08:57)
[2020-11-06] MEDS: DOCUSATE SODIUM 100 MG CAP PO SCH (08:57)
[2020-11-06] MEDS: oxyCODONE/ACETAMINOPHEN 5mg/325mg TAB PO PRN (08:58)
[2020-11-06] MEDS: SIMETHICONE 80 MG CHEW PO SCH (08:58)
[2020-11-06] MEDS: DICLOFENAC SOD 1% GEL 100 GM TUBE EXT SCH (08:59)
[2020-11-06] MEDS: FERROUS SULFATE 325 MG TAB PO SCH (09:30)
--- NOTE | 2020-11-16 01:01 | Discharge Summary ---
Date of Service November 16, 2020 Admission HPI Per Admitting Provider 30 yo (twins) @ 39 4/7, presents in labor. Prior Pre-eclampsia - 81mg ASA recommended 12 weeks Prior PTB was iatrogenic, ie, not spontaneous PTB C/S 08/16/19, short interval interval. Advised against TOLAC, recommend repeat HROBM- pt is to have repeat c/s Discharge Data Consultations 11/03/20 22:16 Consult Anesthesiology Stat Procedures Performed Operation Date: 11/03/20 22:20 Actual Procedures p Repeat low transverse Section for the of a viable male child at 2333. - Elise Bhagat, Hospital Course (1) state: 30yo @ 39 4/7, admitted with spontaneous labor with h/o section, short interval . Repeat low transverse performed. Unremarkable recovery, discharged home POD#3. Followup in office 6w PP. Discharge instructions reviewed. Coding Level of Care Code None Diagnoses state Z39.2
== END 2020-11-06 12:40 | disposition home or self-care (01) | DRG 787 ==
LOC: OPB 22:01 → 4S1 22:02 → 4S2 11-04 03:30